=== PATIENT | female | born 1955 | race Caucasian/White ===

== ENCOUNTER 2016-10-08 15:54 | Inpatient (IN) ==
[2016-10-08] MEDS ORDERED: cefTRIAXone 1,000 MG in SODIUM CHLORIDE 0.9% 100 ML IV STA (16:55)
[2016-10-08] MEDS ORDERED: SODIUM CHLORIDE 0.9% 1,000 ML IV STA (16:55)
--- NOTE | 2016-10-08 17:02 | Emergency Department Note ---
Alex Herbert Brooke, am scribing for, and in the presence of, Jg Low MD 17 :00. Maranda Herbert Charles R, MD, personally performed the services described in this documentation, ascribed by Kellie Johnson in my presence, and it is both accurate and complete 702 . Arrival - Arrival Chief Complaint: Non-Specific Stated Complaint: n/v; leg and back pain ED Nursing Triage Note: Pt reports having n/v, leg, and back pain. Went to Dr Baron office for these complaints. Found with abnormal labs. BUN 176, creat 12.2. Pt reports hurting all over but doesnt feel bad.Patient sent to [facility] -- and now transferred her for further evaluation.Pt with pmh of anxiety, htn. K+ 6.0--kayexelate given prior to leaving [facility]. Mode of Arrival: Stretcher Limitations: No Limitations Source: Patient, Family, RN Notes Reviewed Time Seen by Provider: 10/08/16 16:17 - History of Present Illness HPI Narrative: Patient is a 61 year old female who was transferred from [facility] with c/o elevated labs, renal failure, right leg/foot pain and numbness , and "sores" covering body. Patient went to Dr. Baron office, this morning, and was sent to [facility]. Family member says the renal failure and right leg/foot pain and numbness are new. Family member says Patient lifted some "tires," about a month ago, and had some problems with bulging discs. Following the bulging disc, Patient then began to experience the pain and numbness in her right leg. Patient's right knee is also erythematous. Family member says Patient lost her in August and has not been eating or drinking very much. Family member says Patient has had depression, in the past, where she stopped eating and drinking. Family member says Patient has also been getting very little sleep since the loss of her . Family member says [facility] was concerned about a "possible blood infection" and "sepsis." Patient has "sores" that are covering her body. [facility] did an X-ray on Patient's right foot. Patient denies having any chest pain or SOB. Patient has PMHx of HTN and has been falling frequently. Patient is a smoker. Review of System - Review of System 12 point system: reviewed and no additional remarkable complaints except as stated - Review of System Constitutional: Absent: fever Respiratory: Absent: respiratory distress Cardiovascular: Absent: chest pain Musculoskeletal: Present: leg pain (right) Skin: Present: other ("sores" covering body. Right knee erythema.). Absent: rash Neurological: Present: numbness (Right leg) Psychiatric: Present: depression (loss of her ) Hematological/Lymphatic: Present: other (elevated labs) Medical,Surgical,& Family Hx - Medical History Cardio: History of: Hypertension Psychological: History of: Anxiety Disorders - Social History Smoking Status: Former smoker Frequency of Alcohol Use: Occasionally Type of Drug Use: None Exam Vital Signs: Vital Signs Temperature 98.0 F 10/08/16 15:57 Pulse Rate 84 10/08/16 15:57 Respiratory Rate 17 10/08/16 15:57 Blood Pressure 168/63 10/08/16 15:57 O2 Sat by Pulse Oximetry 99 10/08/16 15:57 - General General appearance: alert, in no apparent distress - Head Head exam: Present: atraumatic, normocephalic - Eye Eye exam: Present: PERRL, EOMI, other (sunken orbits) - ENT ENT exam: Present: normal exam - Neck Neck exam: Present: normal inspection - Chest Chest inspection: Present: normal inspection, symmetric chest wall rise - Respiratory Respiratory exam: Present: normal lung sounds bilaterally - Cardiovascular Cardiovascular exam: Present: regular rate, normal rhythm, normal heart sounds - Abdominal Exam Abdominal exam: Present: soft. Absent: distention, tenderness - Extremities Exam Extremities exam: Present: pedal edema (+2 left leg, +1 right leg.) - Back Exam Back exam: Present: normal inspection - Neurological Exam Neurological exam: Present: alert, oriented X3 - Psychiatric Psychiatric exam: Present: normal affect, normal mood - Skin Skin exam: Present: warm, dry, intact, other (Red streak running up right leg. Poor skin turgor. Body covered in sores.) Course - Consultations Consultation #1: Hospitalist will admit patient Time: 17:02 Results - Labs Lab Results: I have reviewed the patients labs Labs: All results reviewed from previous facility Critical Care Time Critical Care Time: Yes Total Critical Care Time: 60 Disposition Clinical Impression: Altered mental status, UTI (urinary tract infection), Skin sore, Acute renal failure, Hyperkalemia, diminished renal excretion, Hypocalcemia, Back pain, Peripheral neuropathic pain Case discussed with: patient, patient's family Disposition: Still a Patient Condition: Guarded Time of Disposition: 17:05
[2016-10-08] MEDS ORDERED: cefTRIAXone 1,000 MG VIAL ONE (17:48)
[2016-10-08 17:55] LABS: Basophils % 0.3 % (0.0-0.8); Eosinophils # 0.1 10*3/uL (0.0-0.87); Eosinophils % 0.6 % (0.00-10.9); Hematocrit 31.5 VOL% (35.7-47.0); Hemoglobin 10.6 GM/DL (12.0-16.0); Immature Granulocytes % 0.4 %; Immature Granulocytes Absolute 0.03 #; Lymphocytes # 0.7 10*3/uL (1.4-4.0); Lymphocytes % 9.3 % (21.3-54.2); Mean Corpuscular HGB Conc 33.7 GM/DL (32-36); Mean Corpuscular Hemoglobin 32 PG (27-34); Mean Corpuscular Volume 96.3 FL (87-102); Mean Platelet Volume 10.8 FL (9.6-12.0); Monocytes # 0.7 10*3/uL (0.11-0.8); Monocytes % 8.8 % (1.7-12.7); Neutrophils # 6.3 10*3/uL (1.4-7.4); Neutrophils % 80.6 % (38.7-73.9); Platelet Count 311 10*3/uL (130-400); Red Blood Count 3.27 10*6/uL (3.8-5.5); Red Cell Distribution Width 13.3 % (9.3-17.3); White Blood Count 7.8 10*3/uL (4.5-13.71)
[2016-10-08] MEDS ORDERED: GLUCAGON 1 MG VIAL IM PRN (18:20)
[2016-10-08] MEDS ORDERED: DEXTROSE 50% 25 GM/50 ML VIAL IV PRN (18:20)
[2016-10-08] MEDS ORDERED: ONDANSETRON 4 MG/2 ML VIAL IV PRN (18:20)
[2016-10-08 18:46] LABS: Alanine Aminotransferase 25 U/L (13-56); Albumin 2.8 G/DL (3.4-5.0); Alkaline Phosphatase 109 U/L (45-117); Aspartate Amino Transferase 33 U/L (0-37); Blood Urea Nitrogen 160 MG/DL (7-18); CKMB % 1.1 %; Calcium 6.8 MG/DL (8.5-10.1); Glucose 101 MG/DL (74-106); Magnesium 2.7 MG/DL (1.8-2.4); Osmolality,Calculated 316.5 MOS/KG (273-304); Sodium 132 MMOL/L (136-145); Total Protein 6.7 G/DL (6.4-8.3); Troponin I Only < 0.015 NG/ML (0.00-0.045)
--- NOTE | 2016-10-08 19:06 | Hospitalist History & Physical ---
<Sruthi Hoover - Last Filed: 10/08/16 19:03> Assessment and Plan - Time spent with patient Time spent with patient: Less than 30 minutes (due to assessment, plan and documentation.) (1) Acute renal failure Status: Acute Assessment and plan: IVF's at 125 cc/hr nephrology consult renal u/s in am Current Visit: Yes (2) Back pain Status: Acute Current Visit: Yes (3) Hyperkalemia, diminished renal excretion Status: Acute Assessment and plan: kayexalate 1 dose. Current Visit: Yes History of Present Illness Chief complaint: dehydration, not eating History of present illness: Ms. Lanier is a 61 year old female who presented to the ED today with her family. Family states that she has not been eating well for months since the of her . She does appear somewhat depressed. She denies any past medical history of DM or HTN, or kidney disease. However, labs show an elevated creatinine of 12.2. She does admit to taking NSAID's almost on a daily basis for years. She states that she was scared she would OD on other medications. She has history of back problems as well. She is also complaining of right foot pain. It does appear slightly swollen. She has had xrays done at [facility] that showed a possible chronic fracture. We will admit Ms. Lanier to our service and hydrate with IVF's at 125 cc/hr, obtain a nephrology consultation and renal ultrasound. She also has PRN medications in for pain. Further plan and addendum to follow by Dr. Diego Tang. Home Medications Medication Instructions Recorded Confirmed Type Lisinopril/Hctz 20-12.5 [Prinzide 1 tablet PO DAILY 10/08/16 10/08/16 History 20-12.5] [place]-3 Fatty Acids [Fish Oil] 1,000 mg PO BID 10/08/16 10/08/16 History Omeprazole [Prilosec] 20 mg PO DAILY 10/08/16 10/08/16 History Sertraline [Zoloft] 100 mg PO DAILY 10/08/16 10/08/16 History Medical,Surgical,& Family Hx - Medical History Cardio: History of: Hypertension Psychological: History of: Anxiety Disorders - Social History Smoking Status: Former smoker Frequency of Alcohol Use: Occasionally Type of Drug Use: None Marital Status: Lives With:: Alone Functional capacity: uses cane/walker - Constitutional Constitutional: Absent: chills, fatigue, fever(s) - EENT Eyes: Absent: blurry vision, diplopia Ears: Absent: decreased hearing, tinnitus Nose, mouth and throat: Absent: dysphagia, headache(s) - Cardiovascular Cardiovascular: Absent: chest pain at rest, dyspnea on exertion, palpitations - Respiratory Respiratory: Absent: cough, dyspnea, hemoptysis - Gastrointestinal Gastrointestinal: Absent: abdominal pain, melena, nausea, vomiting - Genitourinary Genitourinary: Absent: difficulty urinating, dysuria, hematuria - Musculoskeletal Musculoskeletal: Absent: arthralgias, back pain - Neurological Neurological: Absent: confusion, dizziness - Psychiatric Psychiatric: Present: depression. Absent: anxiety, confusion - Endocrine Endocrine: Absent: cold intolerance, heat intolerance - Hematologic/Lymphatic Hematologic/Lymphatic: Absent: easy bleeding, easy bruising Exam - Constitutional General appearance: normal weight, no acute distress - Head Head exam: Present: normal inspection, normocephalic - Eye Eye exam: Present: EOMI. Absent: scleral icterus Pupils: Present: MAY, normal accommodation - ENT ENT exam: Present: normal exam, normal oropharynx - Neck Neck exam: Present: normal inspection. Absent: lymphadenopathy - Respiratory Respiratory exam: Present: clear to auscultation bilaterally. Absent: accessory muscle use - Cardiovascular Cardiovascular exam: Present: regular rate and rhythm. Absent: carotid bruit - GI/Abdominal GI/Abdominal exam: Present: normal bowel sounds, soft. Absent: tenderness - Extremities Exam Extremities exam: Present: normal inspection, edema, other (right lower foot is swollen. ) - Back Exam Back exam: Present: normal inspection. Absent: muscle spasm - Neurological Exam Neurological exam: Present: alert, oriented X3 - Psychiatric Psychiatric exam: Present: normal affect, depressed - Skin Skin exam: Present: normal color, warm, dry, intact Results - Labs CBC & BMP: 10/08/16 17:41 10/08/16 17:41 Lab Results: I have reviewed the past 24 hour labs <Diego Tang Jr. - Last Filed: 10/08/16 20:41> Assessment and Plan (1) ETOH abuse Status: Acute Current Visit: Yes (2) Acute renal failure Status: Acute Current Visit: Yes (3) Hyperkalemia, diminished renal excretion Status: Acute Assessment and plan: Hyperkalemia more likely due to patient's acute renal failure. Patient has a history of chronic NSAID use. Moreover there is a history of patient with substance abuse. Current Visit: Yes (4) Skin sore Status: Acute Current Visit: Yes (5) UTI (urinary tract infection) Status: Acute Current Visit: Yes History of Present Illness History of present illness: Ms. Lanier is a 61 year old female Exam - Constitutional Vitals: Period Temp Pulse Resp BP Sys/Painting Pulse Ox Last 24 Hr 85-103 18-19 153-167/62-63 94-99 Results - Labs CBC & BMP: 10/08/16 17:41 10/08/16 17:41
[2016-10-08] MEDS ORDERED: SODIUM POLYSTYRENE SULFATE 15 GM/60 ML BOTTLE PO STA (19:09)
[2016-10-08] MEDS ORDERED: LORazepam 2 MG/1 ML VIAL IV PRN (19:18)
[2016-10-08] MEDS ORDERED: SODIUM POLYSTYRENE SULFATE 15 GM/60 ML BOTTLE ONE (19:33)
[2016-10-08 19:55] LABS: Free T4 (Free Thyroxine) 0.41 NG/DL (0.76-1.46); Thyroid Stimulating Hormone 0.716 uIU/ml (0.358-3.74); Uric Acid 17.1 MG/DL (2.6-6.0)
[2016-10-08 19:57] LABS: Folate 10.7 NG/ML (5.4-24.0)
[2016-10-08 20:14] LABS: Barbiturates Screen,Urine Negative (Negative); Benzodiazepines Screen,Urine Negative (Negative); Cannabinoid Screen,Urine Negative (Negative); Opiate Screen,Urine Positive (Negative); Phencyclidine Screen,Urine Negative (Negative)
--- NOTE | 2016-10-08 20:20 | Ultrasound Report ---
US venous doppler LE BI Indication: Lower extremity edema. Comparison: None. Technique: Grayscale, spectral, and color Doppler interrogation of the bilateral lower extremity veins was performed. Augmentation and compression was performed. Findings: Grayscale, color Doppler, and pulsed Doppler evaluation of the veins of the bilateral lower extremity demonstrate no evidence of deep venous thrombosis. IMPRESSION: No evidence of deep venous thrombosis in the bilateral lower extremity. PROCEDURE INTERPRETED AT [facility] DEPARTMENT OF RADIOLOGY Final Report Signed by: Dr Diego Arguello
--- NOTE | 2016-10-08 20:22 | Ultrasound Report ---
US renal Bilateral Indication: Acute renal failure Comparison: None Technique: Multiple longitudinal and transverse sonographic images of the kidneys were obtained with transabdominal probe. Findings: Right kidney measures 10.4 cm. Left kidney measures 8.6 cm. No evidence of hydronephrosis. Study is somewhat limited secondary to patient body habitus. IMPRESSION: No evidence of hydronephrosis. PROCEDURE INTERPRETED AT [facility] DEPARTMENT OF RADIOLOGY Final Report Signed by: Dr Diego Arguello
[2016-10-08] MEDS: LORazepam 1 MG TABLET PO SCH (21:34)
[2016-10-08] MEDS: OMEGA 3 ACID ETHYL ESTERS 1 GM CAPSULE PO SCH (21:34)
[2016-10-08] MEDS: SODIUM CHLORIDE 0.9% 1,000 ML IV SCH (21:58)
[2016-10-08] MEDS: ZALEPLON 5 MG CAPSULE PO PRN (22:03)
[2016-10-09] MEDS: SODIUM CHLORIDE 0.9% 1,000 ML IV SCH ×3 (05:46→19:55)
[2016-10-09 06:36] LABS: Basophils % 0.5 % (0.0-0.8); Eosinophils # 0.3 10*3/uL (0.0-0.87); Hematocrit 29.2 VOL% (35.7-47.0); Hemoglobin 9.5 GM/DL (12.0-16.0); Immature Granulocytes % 0.3 %; Immature Granulocytes Absolute 0.02 #; Lymphocytes # 1.4 10*3/uL (1.4-4.0); Lymphocytes % 24.6 % (21.3-54.2); Mean Corpuscular HGB Conc 32.5 GM/DL (32-36); Mean Corpuscular Hemoglobin 31 PG (27-34); Mean Corpuscular Volume 96.4 FL (87-102); Mean Platelet Volume 10.9 FL (9.6-12.0); Monocytes # 1.2 10*3/uL (0.11-0.8); Monocytes % 20.6 % (1.7-12.7); Neutrophils # 2.8 10*3/uL (1.4-7.4); Platelet Count 300 10*3/uL (130-400); Red Blood Count 3.03 10*6/uL (3.8-5.5); Red Cell Distribution Width 13.6 % (9.3-17.3); White Blood Count 5.8 10*3/uL (4.5-13.71)
[2016-10-09 07:10] LABS: Hypochromasia 1+; Lymphocytes 28 % (20-55); Microcytosis 1+; Platelet Estimate Adequate; Segmented Neutrophils 64 % (50-85); Total Cells Counted 100
[2016-10-09 07:17] LABS: Albumin 2.3 G/DL (3.4-5.0); Bilirubin,Total 2.3 MG/DL (0.2-1.0); Calcium 6.2 MG/DL (8.5-10.1); Osmolality,Calculated 323.7 MOS/KG (273-304); Potassium 4.4 MMOL/L (3.5-5.1); Total Protein 5.3 G/DL (6.4-8.3)
[2016-10-09] MEDS ORDERED: LISINOPRIL/HCTZ 20-12.5 MG TABLET PO SCH (09:00)
[2016-10-09] MEDS ORDERED: OMEPRAZOLE 20 MG CAPSULE PO SCH (09:00)
[2016-10-09] MEDS: THIAMINE 200 MG/2 ML VIAL IV SCH (09:11)
[2016-10-09] MEDS: LORazepam 1 MG TABLET PO SCH ×2 (09:12→21:58)
[2016-10-09] MEDS: SERTRALINE 100 MG TABLET PO SCH (09:12)
[2016-10-09] MEDS: OMEGA 3 ACID ETHYL ESTERS 1 GM CAPSULE PO SCH ×2 (09:12→21:58)
[2016-10-09] MEDS: PANTOPRAZOLE 40 MG TABLET PO SCH (09:12)
--- NOTE | 2016-10-09 12:51 | Hospitalist Progress Note ---
<Sruthi Hoover - Last Filed: 10/09/16 12:48> Assessment and Plan (1) Acute renal failure Status: Acute Assessment and plan: IVF's at 125 cc/hr nephrology consult renal no hydro Current Visit: Yes (2) Back pain Status: Acute Current Visit: Yes (3) Hyperkalemia, diminished renal excretion Status: Acute Assessment and plan: resolved Current Visit: Yes Hospitalist: Subjective Interval history: Ms. Lanier is sleeping well at this time. Her daughter states that she has slept well, and that she does appear to be comfortable. She has worked with physical therapy this morning. Her daughter had some questions regarding social service issues, and I told her that we have consulted case mgmt/social sciences chair and that they would be able to better answer those questions. Her renal function is improving, and her renal u/s showed no hydro. Labs in AM and continue to follow along with consultants. Exam - Constitutional Vitals: Period Temp Pulse Resp BP Sys/Painting Pulse Ox Last 24 Hr 96.9 F-97.8 F 79-103 16-188 126-167/50-86 92-99 General appearance: normal weight, no acute distress - Head Head exam: Present: normal inspection, normocephalic - Eye Eye exam: Present: EOMI. Absent: scleral icterus Pupils: Present: MAY, normal accommodation - ENT ENT exam: Present: normal exam, normal oropharynx - Neck Neck exam: Present: normal inspection. Absent: lymphadenopathy - Respiratory Respiratory exam: Present: clear to auscultation bilaterally. Absent: accessory muscle use - Cardiovascular Cardiovascular exam: Present: regular rate and rhythm - GI/Abdominal GI/Abdominal exam: Present: normal bowel sounds, soft. Absent: tenderness - Extremities Exam Extremities exam: Present: normal inspection. Absent: edema - Back Exam Back exam: Present: normal inspection. Absent: muscle spasm - Neurological Exam Neurological exam: Present: other (asleep) - Skin Skin exam: Present: normal color, warm, dry, intact Results - Labs CBC & BMP: 10/09/16 05:25 10/09/16 05:25 Lab Results: I have reviewed the past 24 hour labs <Dick Olsen - Last Filed: 10/09/16 15:26> Hospitalist: Subjective Interval history: Patient seen and examined case discussed with daughter. She is worse in be quite somnolent. I think she does not report quire as much benzodiazepine as have been ordered overnight. I would decrease these. She would also need some bicarbonate in her infusion. More than likely this should turn around in the renal function should improve. We will also switch her to Teflaro for cellulitis. Exam - Constitutional Vitals: Period Temp Pulse Resp BP Sys/Painting Pulse Ox Last 24 Hr 96.9 F-97.8 F 79-103 16-188 126-167/50-86 92-99 Results - Labs CBC & BMP: 10/09/16 05:25 10/09/16 05:25
--- NOTE | 2016-10-09 14:06 | Nephrology Consult Note ---
History of Present Illness Chief complaint: renal failure History of present illness: Ms. Lanier is a 61 year old female with acute renal failure who presented to [place] after her daughter came in from [place] and found her not doing well. She involved been vomiting and been eating very poorly. The house was unkempt and there was suspicion that she had been taking some morphine that was in the house from her late 's prescription. Is also a history of alcohol use though that history is obtained from the daughter. At present the patient is unable to confirm. Her creatinine was 11.2 on admission here but today is 9.0 after rehydration. Past history is limited and is obtained from the daughter she says that her mother had anxiety depression symptoms the whole time that the daughter was growing up and that at one point she had electroconvulsive therapy. She does take at least 6 ibuprofen daily for back pain. She had been complaining of back pain of late. A renal ultrasound has been done the demonstrates no evidence of obstruction and the kidneys are normal size. Her graft the patient is quite sedated and is currently receiving Ativan prophylactically. Chest x-ray demonstrates no evidence of volume overload. Impression acute renal failure likely secondary to volume depletion and the effects of lisinopril and ibuprofen on renal compensation for her volume depletion. 2 history of probable inappropriate opioid use #3 history of alcohol ingestion though quantity and recency not determined. Plan: continue with hydration and we will stop lisinopril. Home Medications Medication Instructions Recorded Confirmed Type Lisinopril/Hctz 20-12.5 [Prinzide 1 tablet PO DAILY 10/08/16 10/08/16 History 20-12.5] [place]-3 Fatty Acids [Fish Oil] 1,000 mg PO BID 10/08/16 10/08/16 History Omeprazole [Prilosec] 20 mg PO DAILY 10/08/16 10/08/16 History Sertraline [Zoloft] 100 mg PO DAILY 10/08/16 10/08/16 History Allergies Allergy/AdvReac Type Severity Reaction Status Date / Time No Known Allergies Allergy Unverified 10/08/16 19:26 Medical,Surgical,& Family Hx - Medical History Cardio: History of: Hypertension Psychological: History of: Anxiety Disorders Musculoskeletal: History of: Back/Neck Problems - Surgical History Reproductive Surgeries: Surgical HX of;: Tubal Ligation Orthopedic Surgeries: Surgical HX of;: Orthopedic Surgery (Broken left leg repair) - Family History Family History: Denies;: Family Anesthesia Reaction, Family Cancer, Family Diabetes, Family Heart Disease, Family Hematology, Family Hypertension, Family Psychiatric Problems, Family Stroke, Additional Family History - Social History Smoking Status: Former smoker Frequency of Alcohol Use: Occasionally Type of Drug Use: None Review of Systems 12 point system: reviewed and no additional remarkable complaints except as stated Exam - Vital Signs Vital signs: Period Temp Pulse Resp BP Sys/Painting Pulse Ox Last 24 Hr 96.9 F-97.8 F 79-103 16-188 126-167/50-86 92-99 - General Appearance General appearance: well-developed, well-nourished, appears started age EENT: ATNC Neck: no JVD, no thyromegaly, no carotid bruit, supple Respiratory: no kyphosis, no scoliosis Cardiology: no murmurs, no rub, no gallops, no edema, regular rate, regular rhythm, normal S1, normal S2 Gastrointestinal: normoactive bowel sounds, no tenderness Integumentary: no rash, warm and dry Neurologic: obtunded Musculoskeletal: no deformities (Arousable but not conversant), no erythema, no cyanosis, no clubbing Results - Labs CBC & BMP: 10/09/16 05:25 10/09/16 05:25 Assessment and Plan (1) Acute renal failure Status: Acute Current Visit: Yes (2) Back pain Status: Acute Current Visit: Yes (3) Altered mental status Status: Acute Current Visit: Yes Specialty Discharge - Follow Up or Referrals - Speciality Discharge Instructions Nephrology Instructions: Decrease sedation. Supplement bicarb. Continue fluid
[2016-10-09] MEDS ORDERED: LORazepam 1 MG TABLET PO SCH (14:09)
--- NOTE | 2016-10-09 14:19 | Event Note ---
Ms. Yo his uric acid is noted to be 17 on admission. We will alkalinize her urine and continue with the IV fluids. This should fall with diuresis and the resolution of her renal failure.
[2016-10-09] MEDS: cefTRIAXone 1,000 MG in SODIUM CHLORIDE 0.9% 100 ML IV SCH (19:56)
[2016-10-09] MEDS: SODIUM BICARB INJ 50 MEQ in DEXTROSE 5% NACL 0.45% 1,000 ML IV SCH (19:56)
[2016-10-10] MEDS: SODIUM BICARB INJ 50 MEQ in DEXTROSE 5% NACL 0.45% 1,000 ML IV SCH ×3 (04:53→22:45)
[2016-10-10 04:59] LABS: Basophils % 0.6 % (0.0-0.8); Eosinophils # 0.4 10*3/uL (0.0-0.87); Eosinophils % 6.1 % (0.00-10.9); Hematocrit 30.1 VOL% (35.7-47.0); Hemoglobin 10.1 GM/DL (12.0-16.0); Immature Granulocytes % 0.3 %; Immature Granulocytes Absolute 0.02 #; Lymphocytes # 0.9 10*3/uL (1.4-4.0); Mean Corpuscular HGB Conc 33.6 GM/DL (32-36); Mean Corpuscular Hemoglobin 32 PG (27-34); Mean Corpuscular Volume 96.2 FL (87-102); Mean Platelet Volume 11.1 FL (9.6-12.0); Monocytes # 1.3 10*3/uL (0.11-0.8); Monocytes % 19.5 % (1.7-12.7); Neutrophils # 4.2 10*3/uL (1.4-7.4); Neutrophils % 60.5 % (38.7-73.9); Platelet Count 291 10*3/uL (130-400); Red Blood Count 3.13 10*6/uL (3.8-5.5); Red Cell Distribution Width 13.3 % (9.3-17.3); White Blood Count 6.9 10*3/uL (4.5-13.71)
[2016-10-10 05:29] LABS: Albumin 2.4 G/DL (3.4-5.0); Bilirubin,Total 0.7 MG/DL (0.2-1.0); Calcium 7.3 MG/DL (8.5-10.1); Osmolality,Calculated 323.3 MOS/KG (273-304); Potassium 3.3 MMOL/L (3.5-5.1); Total Protein 5.2 G/DL (6.4-8.3)
[2016-10-10 06:16] LABS: Anisocytosis Slight; Eosinophils 3 % (0-10); Lymphocytes 12 % (20-55); Macrocytosis Slight; Platelet Estimate Normal; Segmented Neutrophils 69 % (50-85); Total Cells Counted 100
--- NOTE | 2016-10-10 09:22 | XRay Report ---
History is acute renal failure Comparison 05/11/2013 Heart and vessels are mildly enlarged No overt pulmonary edema or consolidative infiltrate is seen Impression: Mild cardiomegaly and vascular congestion PROCEDURE INTERPRETED AT [facility] DEPARTMENT OF RADIOLOGY Final Report Signed by: Dr. Doris Jeffries
[2016-10-10] MEDS: LORazepam 1 MG TABLET PO SCH ×2 (10:42→21:47)
[2016-10-10] MEDS: THIAMINE 200 MG/2 ML VIAL IV SCH (10:43)
[2016-10-10] MEDS: OMEGA 3 ACID ETHYL ESTERS 1 GM CAPSULE PO SCH ×2 (10:43→21:48)
[2016-10-10] MEDS: SERTRALINE 100 MG TABLET PO SCH (10:43)
[2016-10-10] MEDS: PANTOPRAZOLE 40 MG TABLET PO SCH (10:43)
[2016-10-10] MEDS: DESITIN 4OZ/NYSTATIN 15 GRAM MIXTURE PASTE TOP SCH ×2 (13:19→21:54)
--- NOTE | 2016-10-10 14:27 | Hospitalist Progress Note ---
Assessment and Plan (1) Cellulitis Status: Acute Current Visit: Yes (2) Altered mental status Status: Acute Current Visit: Yes (3) Acute renal failure Status: Acute Current Visit: Yes Hospitalist: Subjective Interval history: More awake and alert. She states she had been drinking a little bit here and there but did not drink much in the last few weeks. She has been more depressed since her . She just did not eat much but she denies taking his pain medications. She has pain in the right foot. She had fallen few Times. Assessment and plan 10/10/2016: Acute renal failure Possible Sanders of alcohol use Depression Clinically she is improving. This does not appear to be gout. I will give her 1 dose of 40 mg Solu-Medrol to see if that helps in the foot. We will also get an x-ray of the foot since she has fallen 3 times. Continue with current management with IV fluids and bicarbonate to alkalinize. Her uric acid is down to 15. I will also consult social group worker for possible swing bed placement and for PT evaluation. Exam - Constitutional Vitals: Period Temp Pulse Resp BP Sys/Painting Pulse Ox Last 24 Hr 97.6 F-98.2 F 79-92 18-18 148-168/69-80 97-98 Exam: Gen.: In no acute distress Head and neck: Pupils are reactive neck is supple Cardiovascular: S1-S2 with regular rate and rhythm Respiratory: Lungs are clear to auscultation and percussion Abdomen: Soft, bowel sounds are positive Extremities: No edema, right foot is mildly tender but no obvious erythema is noted. Left thigh cellulitis is better Neuro: Grossly intact Results - Labs CBC & BMP: 10/10/16 03:37 10/10/16 03:37 Lab Results: I have reviewed the past 24 hour labs
[2016-10-10] MEDS ORDERED: methylPREDNISolone SOD SUC 40 MG/1 ML VIAL IV ONE (14:30)
--- NOTE | 2016-10-10 15:34 | XRay Report ---
Right foot, 2 views History is recent fall with right foot injury and pain No acute osseous, articular, or soft tissue abnormality seen. Impression: No acute pathology seen. PROCEDURE INTERPRETED AT [facility] DEPARTMENT OF RADIOLOGY Final Report Signed by: Dr. Doris Jeffries
--- NOTE | 2016-10-10 16:04 | Nephrology Progress Note ---
Nephrology - PN: Subj Interval history: Ms. Lanier is seen in follow-up of her acute renal failure. She is much improved. She is on much less sedation today and is awake she is somewhat anxious. She's bothered by her Lamas catheter and is alert enough to get to the bedside commode with assistance. Her daughter is here can help her when necessary. We will remove her Lamas catheter. Her uric acid remains significantly elevated at 15. Because of that without a begin allopurinol and a standard dose rather than a small dose. She tells me she has never had gout. Her chest is clear she has no peripheral edema urine output is brisk. Acidosis is improved. I expect her creatinine to continue to follow. Exam (PN)-Nephrology - Vital Signs Vital signs: Period Temp Pulse Resp BP Sys/Painting Pulse Ox Last 24 Hr 98 F-98.2 F 79-92 18-18 148-168/69-80 97-98 - Lab 10/10/16 03:37 10/10/16 03:37 Most recent lab results Calcium 7.3 MG/DL (8.5-10.1) L 10/10/16 03:37 Magnesium 2.7 MG/DL (1.8-2.4) H 10/08/16 17:41 Assessment and Plan (1) Acute renal failure Status: Acute Current Visit: Yes (2) Back pain Status: Acute Current Visit: Yes (3) Altered mental status Status: Acute Current Visit: Yes
[2016-10-10] MEDS: cefTRIAXone 1,000 MG in SODIUM CHLORIDE 0.9% 100 ML IV SCH (18:50)
[2016-10-10] MEDS: ALLOPURINOL 300 MG TABLET PO SCH (21:49)
[2016-10-11] MEDS: ZALEPLON 5 MG CAPSULE PO PRN ×2 (01:24→20:57)
[2016-10-11 05:14] LABS: Basophils % 0.2 % (0.0-0.8); Hematocrit 26.3 VOL% (35.7-47.0); Hemoglobin 9.1 GM/DL (12.0-16.0); Immature Granulocytes % 0.7 %; Immature Granulocytes Absolute 0.03 #; Lymphocytes # 0.8 10*3/uL (1.4-4.0); Lymphocytes % 18.5 % (21.3-54.2); Mean Corpuscular HGB Conc 34.6 GM/DL (32-36); Mean Corpuscular Hemoglobin 32 PG (27-34); Mean Corpuscular Volume 92.3 FL (87-102); Mean Platelet Volume 11.1 FL (9.6-12.0); Monocytes # 0.8 10*3/uL (0.11-0.8); Monocytes % 17.2 % (1.7-12.7); Neutrophils # 2.9 10*3/uL (1.4-7.4); Neutrophils % 63.4 % (38.7-73.9); Platelet Count 270 10*3/uL (130-400); Red Blood Count 2.85 10*6/uL (3.8-5.5); Red Cell Distribution Width 12.8 % (9.3-17.3); White Blood Count 4.5 10*3/uL (4.5-13.71)
[2016-10-11 05:44] LABS: Albumin 2.4 G/DL (3.4-5.0); Bilirubin,Total 0.6 MG/DL (0.2-1.0); Calcium 7.7 MG/DL (8.5-10.1); Osmolality,Calculated 309.4 MOS/KG (273-304); Potassium 2.8 MMOL/L (3.5-5.1); Total Protein 5.4 G/DL (6.4-8.3)
[2016-10-11 05:52] LABS: Hypochromasia 1+; Lymphocytes 22 % (20-55); Segmented Neutrophils 66 % (50-85); Total Cells Counted 100
[2016-10-11 05:53] LABS: Macrocytosis Slight; Platelet Estimate Adequate
[2016-10-11] MEDS: SODIUM BICARB INJ 50 MEQ in DEXTROSE 5% NACL 0.45% 1,000 ML IV SCH (06:49)
[2016-10-11] MEDS ORDERED: POTASSIUM CHLORIDE RIDER 10 MEQ in PREMIX 1 EACH IV PRN (07:41)
[2016-10-11] MEDS: LORazepam 1 MG TABLET PO SCH ×2 (09:51→20:57)
[2016-10-11] MEDS: OMEGA 3 ACID ETHYL ESTERS 1 GM CAPSULE PO SCH ×2 (09:52→20:58)
[2016-10-11] MEDS: PANTOPRAZOLE 40 MG TABLET PO SCH (09:52)
[2016-10-11] MEDS: SERTRALINE 100 MG TABLET PO SCH (09:52)
[2016-10-11] MEDS: DESITIN 4OZ/NYSTATIN 15 GRAM MIXTURE PASTE TOP SCH ×2 (09:53→20:58)
[2016-10-11] MEDS: SODIUM BICARB IV SCH ×2 (10:22→18:31)
[2016-10-11] MEDS: [UNRECOGNIZED DRUG - OTHER] IV SCH ×2 (10:22→18:31)
[2016-10-11] MEDS: POTASSIUM CHLORIDE IV SCH ×2 (10:22→18:31)
--- NOTE | 2016-10-11 10:28 | Nephrology Progress Note ---
Nephrology - PN: Subj Interval history: Ms. Lanier is seen in follow-up of her acute renal failure which is improving. Hyperuricemia was profound and is improving as well with hydration and also with allopurinol. She has developed what is probably acute gout in the right foot involving the right great toe and forefoot. Did receive a single dose of steroids earlier and we're going to begin low-dose colchicine 0.6 mg daily for a short period of time. I think we need to continue the allopurinol in order to get the uric acid below the level that will be damaging to the kidneys and we will continue with the bicarbonate in her IV fluids now to alkalinize her urine. She is alert and oriented. Overall she is much improved Exam (PN)-Nephrology - Vital Signs Vital signs: Period Temp Pulse Resp BP Sys/Painting Pulse Ox Last 24 Hr 97.9 F-99.0 F 75-86 18-20 146-162/63-84 96-98 - Lab 10/11/16 04:13 10/11/16 04:13 Most recent lab results Calcium 7.7 MG/DL (8.5-10.1) L 10/11/16 04:13 Magnesium 2.7 MG/DL (1.8-2.4) H 10/08/16 17:41 Assessment and Plan (1) Acute renal failure Status: Acute Current Visit: Yes (2) Back pain Status: Acute Current Visit: Yes (3) Altered mental status Status: Acute Current Visit: Yes
[2016-10-11] MEDS: COLCHICINE 0.6 MG TABLET PO SCH (10:33)
--- NOTE | 2016-10-11 12:45 | Hospitalist Progress Note ---
Assessment and Plan (1) Cellulitis Status: Acute Current Visit: Yes (2) Altered mental status Status: Acute Current Visit: Yes (3) Acute renal failure Status: Acute Current Visit: Yes Hospitalist: Subjective Interval history: Occasionally gets confused but appears to be [place] related but she also has quite a bit of pain. X-ray of the foot did not show any acute changes. Clinically this does not appear to be gout as usually eats much more tender than she is but certainly with elevated uric acid this this is a possibility. I did give her some Decadron yesterday and that did not seem to have helped. Assessment and plan 10/11/2016: Acute kidney failure Hyperuricemia Hypokalemia Potassium initially was 6 now it's low at 2.8. Renal function is continues to improve. Nephrology is trying uricase it and low-dose colchicine. Potassium is being supplemented. Discussed with the daughter that she may need some help at least in the first few weeks to see if she does not get in the situation again. Will consider low-dose antidepressant at the time of discharge. Exam - Constitutional Vitals: Period Temp Pulse Resp BP Sys/Painting Pulse Ox Last 24 Hr 97.9 F-99.0 F 75-86 18-20 146-162/63-87 95-98 Exam: Gen.: In no acute distress Head and neck: Pupils are reactive neck is supple Cardiovascular: S1-S2 with regular rate and rhythm Respiratory: Lungs are clear to auscultation and percussion Abdomen: Soft, bowel sounds are positive Extremities: No edema, right foot is mildly tender but no obvious erythema is noted. Left thigh cellulitis is better Neuro: Grossly intact Results - Labs CBC & BMP: 10/11/16 04:13 10/11/16 04:13
[2016-10-11] MEDS: cefTRIAXone 1,000 MG in SODIUM CHLORIDE 0.9% 100 ML IV SCH (18:30)
[2016-10-11] MEDS: ALLOPURINOL 300 MG TABLET PO SCH (20:57)
[2016-10-12] MEDS: SODIUM BICARB IV SCH (03:30)
[2016-10-12] MEDS: POTASSIUM CHLORIDE IV SCH (03:30)
[2016-10-12] MEDS: [UNRECOGNIZED DRUG - OTHER] IV SCH (03:30)
[2016-10-12 06:24] LABS: Basophils % 0.1 % (0.0-0.8); Eosinophils # 0.1 10*3/uL (0.0-0.87); Hematocrit 28.4 VOL% (35.7-47.0); Hemoglobin 9.4 GM/DL (12.0-16.0); Immature Granulocytes % 0.5 %; Immature Granulocytes Absolute 0.05 #; Lymphocytes # 0.7 10*3/uL (1.4-4.0); Lymphocytes % 7.5 % (21.3-54.2); Mean Corpuscular HGB Conc 33.1 GM/DL (32-36); Mean Corpuscular Hemoglobin 31 PG (27-34); Mean Platelet Volume 11.1 FL (9.6-12.0); Monocytes # 1.4 10*3/uL (0.11-0.8); Monocytes % 14.4 % (1.7-12.7); Neutrophils # 7.2 10*3/uL (1.4-7.4); Neutrophils % 76.5 % (38.7-73.9); Platelet Count 268 10*3/uL (130-400); Red Blood Count 2.99 10*6/uL (3.8-5.5); White Blood Count 9.4 10*3/uL (4.5-13.71)
[2016-10-12] MEDS: ALBUTEROL/IPRATROPIUM 3 ML NEB RESP TX PRN (06:33)
--- NOTE | 2016-10-12 08:46 | Nephrology Progress Note ---
Nephrology - PN: Subj Interval history: Ms. Yo is seen in follow-up renal impairment hyperuricemia. She is improved but complaining of a right foot which is probably an acute gouty attack. Uric acid is down to 12.2 creatinine is not reported this morning but should be available soon. With her uric acid now down to this level I think we can omit this sodium bicarbonate from her IV fluid. We do need to continue the allopurinol. This is to protect her kidneys from this degree of hyperuricemia. Certainly it is not helping her acute gout but we will continue it and continue with the low-dose colchicine and she is already taking. Her chest is clear and as no edema. Exam (PN)-Nephrology - Vital Signs Vital signs: Period Temp Pulse Resp BP Sys/Painting Pulse Ox Last 24 Hr 97.8 F-98.9 F 75-84 16-80 156-197/69-87 87-100 - Lab 10/12/16 05:22 10/11/16 04:13 Most recent lab results Calcium 7.7 MG/DL (8.5-10.1) L 10/11/16 04:13 Magnesium 2.7 MG/DL (1.8-2.4) H 10/08/16 17:41 Assessment and Plan (1) Acute renal failure Status: Acute Current Visit: Yes (2) Back pain Status: Acute Current Visit: Yes (3) Altered mental status Status: Acute Current Visit: Yes
[2016-10-12] MEDS: PANTOPRAZOLE 40 MG TABLET PO SCH (08:51)
[2016-10-12] MEDS: COLCHICINE 0.6 MG TABLET PO SCH (08:51)
[2016-10-12] MEDS: OMEGA 3 ACID ETHYL ESTERS 1 GM CAPSULE PO SCH ×2 (08:51→21:13)
[2016-10-12] MEDS: LORazepam 1 MG TABLET PO SCH ×2 (08:52→21:12)
[2016-10-12] MEDS: DESITIN 4OZ/NYSTATIN 15 GRAM MIXTURE PASTE TOP SCH (08:52)
[2016-10-12] MEDS: SERTRALINE 100 MG TABLET PO SCH (08:52)
[2016-10-12 11:53] LABS: Calcium 7.6 MG/DL (8.5-10.1); Magnesium 1.4 MG/DL (1.8-2.4); Osmolality,Calculated 303.1 MOS/KG (273-304); Potassium 2.6 MMOL/L (3.5-5.1)
[2016-10-12] MEDS: POTASSIUM CHLORIDE INJ 30 MEQ in DEXTROSE 5% NACL 0.45% 1,000 ML IV SCH ×2 (12:01→23:00)
[2016-10-12] MEDS: MAGNESIUM OXIDE 400 MG TABLET PO SCH ×2 (12:24→21:12)
--- NOTE | 2016-10-12 14:41 | Hospitalist Progress Note ---
Assessment and Plan (1) Acute renal failure Status: Acute Assessment and plan: - Continue IV fluid hydration and encourage oral intake improved acute renal failure. - Continue both allopurinol as well as colchicine to decrease the patient's uric acid level - Nephrology is following, we'll continue to follow the recommendations - Replace potassium orally, also start oral magnesium due to decrease magnesium level which is likely providing the patient from replacing her potassium effectively - Continue to monitor blood counts and electrolytes closely - Continue current pain control regimen Current Visit: Yes (2) Hypokalemia Status: Acute Current Visit: Yes (3) Anemia Status: Acute Current Visit: Yes (4) ETOH abuse Status: Acute Current Visit: Yes Hospitalist: Subjective Interval history: The patient is a 61-year-old female admitted to the hospital with acute renal failure, hyperuricemia with gouty arthritis, and anemia. The patient's kidney function tests continue to improve she continues to have worsening of her potassium level which continued to decrease today. Her uric acid level has improved with allopurinol and colchicine treatment. The patient continues to complain of right foot pain and swelling, as well as decreased appetite. She denies any chest pain or shortness of breath. Exam - Constitutional Vitals: Period Temp Pulse Resp BP Sys/Painting Pulse Ox Last 24 Hr 97.8 F-98.5 F 75-84 16-80 158-197/69-82 87-100 Exam: General appearance: chronically ill appearing female, awake and responsive but lethargic - Head Head exam: Present: normal inspection - Eye Eye exam: Present: EOMI. Absent: periorbital swelling - ENT ENT exam: Present: normal exam - Neck Neck exam: Present: normal inspection - Respiratory Respiratory exam: Present: clear to auscultation bilaterally. Absent: rales, rhonchi - Cardiovascular Cardiovascular exam: Present: regular rate and rhythm. Absent: systolic murmur - GI/Abdominal GI/Abdominal exam: Present: normal bowel sounds, tenderness, soft. Absent: guarding - Extremities Exam Extremities exam: Present: swollen right toe, TTP of right great toe, patient moves all five toes - Back Exam Back exam: Present: normal inspection - Neurological Exam Neurological exam: Present: lethargic, oriented X3 - Psychiatric Psychiatric exam: Present: normal affect - Skin Skin exam: Present: normal color Results - Labs CBC & BMP: 10/12/16 05:22 10/12/16 05:22 Lab Results: I have reviewed the past 24 hour labs
[2016-10-12] MEDS: cloNIDine 0.1 MG TABLET PO PRN ×2 (15:44→21:20)
[2016-10-12] MEDS: cefTRIAXone 1,000 MG in SODIUM CHLORIDE 0.9% 100 ML IV SCH (17:27)
[2016-10-12] MEDS: ALLOPURINOL 300 MG TABLET PO SCH (21:12)
[2016-10-12] MEDS: ZALEPLON 5 MG CAPSULE PO PRN (22:58)
[2016-10-12] MEDS: hydrALAZINE 20 MG/1 ML VIAL IV PRN (23:52)
[2016-10-13] MEDS: DESITIN 4OZ/NYSTATIN 15 GRAM MIXTURE PASTE TOP SCH ×3 (01:02→22:55)
[2016-10-13] MEDS ORDERED: FUROSEMIDE 40 MG/4 ML VIAL IV ONE (02:25)
[2016-10-13 06:17] LABS: Basophils % 0.3 % (0.0-0.8); Eosinophils # 0.1 10*3/uL (0.0-0.87); Eosinophils % 0.6 % (0.00-10.9); Hemoglobin 9.8 GM/DL (12.0-16.0); Immature Granulocytes % 0.8 %; Immature Granulocytes Absolute 0.12 #; Lymphocytes % 7.2 % (21.3-54.2); Mean Corpuscular HGB Conc 32.7 GM/DL (32-36); Mean Corpuscular Hemoglobin 31 PG (27-34); Mean Corpuscular Volume 96.2 FL (87-102); Mean Platelet Volume 10.5 FL (9.6-12.0); Monocytes # 1.8 10*3/uL (0.11-0.8); Monocytes % 12.6 % (1.7-12.7); Neutrophils # 11.2 10*3/uL (1.4-7.4); Neutrophils % 78.5 % (38.7-73.9); Platelet Count 287 10*3/uL (130-400); Red Blood Count 3.12 10*6/uL (3.8-5.5); Red Cell Distribution Width 12.8 % (9.3-17.3); White Blood Count 14.2 10*3/uL (4.5-13.71)
[2016-10-13 06:45] LABS: Calcium 7.5 MG/DL (8.5-10.1); Osmolality,Calculated 293.1 MOS/KG (273-304)
[2016-10-13 06:51] LABS: Potassium 2.5 MMOL/L (3.5-5.1)
[2016-10-13] MEDS: COLCHICINE 0.6 MG TABLET PO SCH (08:54)
[2016-10-13] MEDS: cloNIDine 0.1 MG TABLET PO PRN (08:55)
[2016-10-13] MEDS: OMEGA 3 ACID ETHYL ESTERS 1 GM CAPSULE PO SCH ×2 (08:55→20:47)
[2016-10-13] MEDS: SERTRALINE 100 MG TABLET PO SCH (08:55)
[2016-10-13] MEDS: LORazepam 1 MG TABLET PO SCH ×2 (08:55→20:47)
[2016-10-13] MEDS: POTASSIUM CHLORIDE 20 MEQ TABLET PO SCH ×3 (08:55→14:31)
[2016-10-13] MEDS: PANTOPRAZOLE 40 MG TABLET PO SCH (08:55)
[2016-10-13] MEDS: MAGNESIUM OXIDE 400 MG TABLET PO SCH ×2 (08:55→20:48)
[2016-10-13] MEDS ORDERED: HYDROCORTISONE 0.5% CREAM 28.35 GM TUBE TOP PRN (10:02)
--- NOTE | 2016-10-13 10:12 | Hospitalist Progress Note ---
<Sruthi Hoover - Last Filed: 10/13/16 10:03> Assessment and Plan - Time spent with patient Time spent with patient: Less than 30 minutes (due to assessment, plan and documentationl) (1) Acute renal failure Status: Acute Assessment and plan: resolved. creatinine now 1.0 gfr 64. ivf's have been stopped due to her being wet overnight Current Visit: Yes (2) Back pain Status: Acute Current Visit: Yes (3) Hyperkalemia, diminished renal excretion Status: Acute Assessment and plan: resolved Current Visit: Yes (4) Hypomagnesemia Status: Acute Current Visit: Yes (5) Gout attack Status: Acute Current Visit: Yes (6) HTN (hypertension) Status: Acute Assessment and plan: she is requiring PRN clonidine and hydralazine for BP control Current Visit: Yes (7) Diarrhea Status: Acute Assessment and plan: i have ordered stool cx's for parasites, c diff and wbc's await results: if negative, give immodium for relief; if pos- treat accordingly. Current Visit: Yes (8) Rash and nonspecific skin eruption Status: Acute Assessment and plan: daughter has noticed rash to abdomen and under left arm within the past day. Doesn't itch, and doesn't look like hives hydrocortisone for this Current Visit: Yes (9) Acute respiratory distress Status: Acute Assessment and plan: she required lasix and O2 overnight for fluid overload. this has resolved, not in distress at this time. Current Visit: Yes Hospitalist: Subjective Interval history: Ms. Lanier was seen today on rounds sitting up in bed. She has had a rough 24 hours according to family and nursing staff. She developed some fluid overload yesterday and her fluids were stopped and she was given IV lasix. Today, her lungs sound clear. She is on 2L and in no acute distress at this time. Of note, she did have a potassium this AM of 2.5 and I have ordered 40 mEq q4h x 3 doses with a repeat postassium level at 7pm tonight. Her acute renal failure has greatly improved from admission and is now 1.0 from 9.2. GFR 64 now from 4 on admit. She has had some issues with her BP as well and has Clonidine and Hydralazine ordered for BP control. She was just given Clonidine about 30 minutes ago and re-check was 195/83, will see how she responds after hydralazine. She does complain of left foot pain related to her gout. Uric acid this am 11.0. She is on allopurinol and colchicine. She does have a rash to her abdomen and under her left arm. She denies itching, but it is rough. She denies any shortness of breath, chest pain, hives with administration of her IV abx. I have ordered some hydrocortisone cream for this as well. Will continue to monitor her multiple issues along with Nephrology. Exam - Constitutional Vitals: Period Temp Pulse Resp BP Sys/Painting Pulse Ox Last 24 Hr 98.2 F-99.8 F 81-82 16-20 165-199/70-92 90-94 General appearance: normal weight, no acute distress - Head Head exam: Present: normal inspection, normocephalic - Eye Eye exam: Present: EOMI. Absent: scleral icterus Pupils: Present: MAY, normal accommodation - ENT ENT exam: Present: normal exam, normal oropharynx - Neck Neck exam: Present: normal inspection. Absent: lymphadenopathy - Respiratory Respiratory exam: Present: clear to auscultation bilaterally, other (on 2L). Absent: accessory muscle use - Cardiovascular Cardiovascular exam: Present: regular rate and rhythm. Absent: carotid bruit - GI/Abdominal GI/Abdominal exam: Present: normal bowel sounds, soft, other. Absent: tenderness - Extremities Exam Extremities exam: Present: normal inspection, other (gout right ankle, but doesn 't appear swollen or reddened at this time. ). Absent: edema - Back Exam Back exam: Present: normal inspection. Absent: muscle spasm - Skin Skin exam: Present: normal color, warm, dry, intact Results - Labs CBC & BMP: 10/13/16 05:47 10/13/16 05:47 Lab Results: I have reviewed the past 24 hour labs <Demetria Rivas - Last Filed: 10/13/16 16:20> Hospitalist: Subjective Interval history: Today: pt c/o mildly worsening left foot pain. Her PE unremerkable except that her b/l feet warm and very tender. She is on colchicine PRN, allopurinol 300 mg HS and started on prednisone 20 mg daily today by renal. She reminds HTN since admit. No on any home BP meds. Will start on norvasc 10 mg daily. cont labetalol 10 mg and hydralazine 10 mg q 4 hrs PRN. I will increase her allopurinol to 200 mg BID with total daily dose of 400 mg. Her uric acid 11. Kidney function improved with Cr 1.0 today. Appreciate renal assistance with management. I was paged at 12 00 today about persistent elevated BP with SBP in 190 after 10 mg of hydralazine. Norvasc 10 mg was initiated and labetalol 10 mg PRN was started. Around 1:30 she developed left sided CP, pressure like at rest, 12 lead ecg with NSR and ? ST elevation in lead I and AVL, no old ecg to compare. he troponin come back 0.121, on admit less then 0.015. Echo was ordered and cardiology was consulted. Her K level 2.5 this am, she received lasix last night . K was replaced with KCL 40 meq x3. Will recheck her K and Mg levels Exam - Constitutional Vitals: Period Temp Pulse Resp BP Sys/Painting Pulse Ox Last 24 Hr 98.1 F-99.8 F 76-83 16-20 156-199/71-92 90-94 Results - Labs CBC & BMP: 10/13/16 05:47 10/13/16 05:47
[2016-10-13] MEDS: hydrALAZINE 20 MG/1 ML VIAL IV PRN ×2 (11:00→13:18)
--- NOTE | 2016-10-13 11:13 | Nephrology Progress Note ---
Nephrology - PN: Subj Interval history: Ms. Lanier is seen in follow-up of her acute renal failure. This is now resolved with her creatinine now at 1.0. Her only complaint is pain in the right foot compatible with gout. Her uric acid is down to 11 and I think we need to continue to lower the uric acid for now to protect the kidney. Her chest is clear and she is in no distress. She has a good pulse in the right foot. She has a rash over her abdomen and that likely is due to Rocephin. She is already on low-dose colchicine to help with this gout. We will add 20 mg of prednisone daily for the short-term. Exam (PN)-Nephrology - Vital Signs Vital signs: Period Temp Pulse Resp BP Sys/Painting Pulse Ox Last 24 Hr 98.2 F-99.8 F 81-82 16-20 165-199/70-92 90-94 - Lab 10/13/16 05:47 10/13/16 05:47 Most recent lab results Calcium 7.5 MG/DL (8.5-10.1) L 10/13/16 05:47 Magnesium 1.4 MG/DL (1.8-2.4) L 10/12/16 05:22 Assessment and Plan (1) Acute renal failure Status: Acute Current Visit: Yes (2) Back pain Status: Acute Current Visit: Yes (3) Altered mental status Status: Acute Current Visit: Yes
[2016-10-13] MEDS: predniSONE 20 MG TABLET PO SCH (11:23)
[2016-10-13] MEDS: amLODIPine 10 MG TABLET PO SCH (12:12)
[2016-10-13] MEDS ORDERED: LABETALOL 20 MG/4 ML SYRINGE IV PRN (14:00)
[2016-10-13] MEDS ORDERED: NITROGLYCERIN SL 0.4 MG TABLET SL PRN (14:02)
--- NOTE | 2016-10-13 14:03 | EKG Report ---
Stationary ECG Study [facility] Test Date: 10/13/2016 2:02:56 PM Pat Name: JOE ZACARIAS Department: Room: 520 Gender: F Acrylic Fabricator: : 1955 Requested by: Sruthi Hoover Order Number: [id number] Reading MD: MALU SAN Intervals [place] Rate: 89 P: 43 NV: 160 QRS: 76 QRSD: 93 T: 58 QT: 388 QTc: 434 Interpretive Statements SINUS RHYTHM WITH OCCASIONAL VENTRICULAR PREMATURE COMPLEXES POSSIBLE LEFT ATRIAL ENLARGEMENT POSSIBLE ANTERIOR MYOCARDIAL INFARCTION, OF INDETERMINATE AGE vs ivcd Electronically Signed On 10-13-16 15:03:16 EVENT TECHNICIAN by MALU SAN [id number]
--- NOTE | 2016-10-13 14:10 | Event Note ---
Addendum entered and electronically signed by Sruthi Hoover NP 10/13/16 14:37: Pt did NOT have an TN based on EKG. Did not reflect STEMI. Original Note: <Sruthi Hoover - Last Filed: 10/13/16 14:07> Madyson RN called stating that Ms. Lanier's pressure has not improved with Clonidine, and 2 doses of hydralazine. Ms. Lanier was complaining of chest pain as well. Last check after medications was 188/84. EKG is being obtained when we arrived to the room. No acute changes seen per Dr. Rivas. Orders for labetalol 10 mg q 4 hrs PRN, serial troponins, cardiac monitoring and sublingual NTG ordered as well. We will continue to follow and treat as necessary. <Demetria Rivas - Last Filed: 10/13/16 16:23> Pt c/o left sided CP, 12 lead ecg -NSR with ? St changes in lead I and AVL, no old ecg to compare. Per pt, she does not have cardiac history, but she does not see PCP and never had stress test done. Her BP was elevated since admit. Norvasc was initiated today. Troponin come back 0.121, on admit it was less the 0.015. Nitro was given with CP relief. ECHO ordered and cardiology was consulted.
[2016-10-13 15:24] LABS: Troponin I Only 0.121 NG/ML (0.00-0.045)
[2016-10-13 16:50] LABS: Magnesium 1.1 MG/DL (1.8-2.4); Phosphorous 1.9 MG/DL (2.5-4.9); Potassium 2.8 MMOL/L (3.5-5.1)
[2016-10-13] MEDS ORDERED: POTASSIUM CHLORIDE 20 MEQ TABLET PO ONE (16:57)
[2016-10-13] MEDS ORDERED: MAGNESIUM SULF RIDER 4 GM in PREMIX 1 EACH IV ONE (16:58)
[2016-10-13] MEDS: cefTRIAXone 1,000 MG in SODIUM CHLORIDE 0.9% 100 ML IV SCH (17:12)
[2016-10-13 20:27] LABS: Troponin I Only 0.109 NG/ML (0.00-0.045)
[2016-10-13] MEDS: cloNIDine 0.1 MG TABLET PO SCH (20:47)
[2016-10-13] MEDS: ZALEPLON 5 MG CAPSULE PO PRN (20:48)
[2016-10-13] MEDS: ALLOPURINOL 100 MG TABLET PO SCH (20:50)
[2016-10-13] MEDS ORDERED: ENOXAPARIN 40 MG/0.4 ML SYRINGE SUBCUT ONE (22:35)
--- NOTE | 2016-10-13 22:48 | Cardiology Consult Note ---
I, Jahaira Baez RN, am scribing for, and in the presence of, Ryan Carpenter MD 22:44. Assessment and Plan - Time spent with patient Time spent with patient: Greater than 30 minutes (1) Chest pain Status: Acute Assessment and plan: Diagnosis would include coronary disease, GI, musculoskeletal, or stress/anxiety Plan/ recommendation : Replete the potassium magnesium, as you are doing. Treat for unstable angina for now. Aspirin 324 mg daily. Continue Lovenox. Nitropaste. EKG every morning 3. Agree with labetalol for blood pressure. TNG as needed chest pain. Echo Doppler has been ordered. I will review it tomorrow. Proton pump inhibitor. Elevate head of bed. Thank you for allowing me to participate in this patient's care Current Visit: Yes (2) Acute renal failure Status: Acute Current Visit: Yes (3) HTN (hypertension) Status: Acute Current Visit: Yes (4) Hypokalemia Status: Acute Current Visit: Yes (5) HEATH (generalized anxiety disorder) Status: Acute Current Visit: Yes (6) Hypomagnesemia Status: Acute Current Visit: Yes History of Present Illness - Data of Consult Patient: new to practice - Consult Narrative Reason for consult: chest pain and elevated troponin History of present illness: Ms. Lanier is a 61 year old female who has never seen a parts chaser with a history of hypertension, back and shoulder problems, anxiety/depression, and gout. Surgical history includes right leg, tubal ligation, tonsillectomy, and c -section. Family history includes mother with dementia and hypertension, father and brother with hypertension and heart disease. Her just over a month ago and since she has been living alone. According to daughter who live in [place],she had not been eating or drinking well and came into the hospital dehydrated with kidney issues and gout. Today her blood pressures elevated to 160-190/70-90 and she developed chest pain. According to chart, she was given clonidine and hydralazine for her pressure. Blood pressure at 1600 was 154/71. She reports the pain was a tightness in the left side of her chest and her left rib cage that lasted about 5 minutes. She denies having any shortness of breath, diaphoresis, or palpitations associated with it. Nothing made it worse, and it was relieved after taking NTG SL x 1 dose. The patient does not think this helped the pain, she thinks it was going away on its own. She is wearing oxygen via NBP, and reports she only gets short of breath when laying flat. Currently she is without chest pain or palpitations, sinus rhythm with heart rates in the 80's. Troponin on admission was <0.015, today it was 0.121. Potassium today is 2.5, and this was replaced with IV potassium. H&H is slightly improved at 9.8 and 30. BUN and creatinine are greatly improved at 44 and 1.0, up from 160 and 11.2 on admission. CC: Demetria Rivas MD - Home Medications and Allergies Home Medications: Home Medications Medication Instructions Recorded Confirmed Type Lisinopril/Hctz 20-12.5 [Prinzide 1 tablet PO DAILY 10/08/16 10/08/16 History 20-12.5] Clare-3 Fatty Acids [Fish Oil] 1,000 mg PO BID 10/08/16 10/08/16 History Omeprazole [Prilosec] 20 mg PO DAILY 10/08/16 10/08/16 History Sertraline [Zoloft] 100 mg PO DAILY 10/08/16 10/08/16 History Allergies/Adverse Reactions: Allergies Allergy/AdvReac Type Severity Reaction Status Date / Time No Known Allergies Allergy Unverified 10/08/16 19:26 - Constitutional Constitutional: Present: as per HPI - EENT Eyes: Present: requires corrective lense Ears: Absent: decreased hearing, ear pain, tinnitus Nose, mouth and throat: Present: other (reports having sores in her mouth). Absent: epistaxis, headache(s), neck pain - Cardiovascular Cardiovascular: Present: chest pain at rest (x 1 episode today), dyspnea (when laying flat). Absent: chest pain with activity, diaphoresis, dyspnea on exertion, edema, radiating jaw, neck or arm pain, lightheadedness, palpitations - Respiratory Respiratory: Present: dyspnea (when laying flat). Absent: cough, hemoptysis, dyspnea on exertion - Gastrointestinal Gastrointestinal: Present: diarrhea, nausea, vomiting. Absent: abdominal pain, constipation, hematemesis, hematochezia - Genitourinary Genitourinary: Present: vaginal discharge (reports a dark colored discharge). Absent: difficulty urinating, dysuria, flank pain, hematuria - Musculoskeletal Musculoskeletal: Present: back pain - Neurological Neurological: Present: abnormal gait, behavioral changes, frequent falls. Absent: confusion, dizziness, syncope, tremor(s) - Psychiatric Psychiatric: Present: anxiety, depression - Endocrine Endocrine: Present: fatigue - Hematologic/Lymphatic Hematologic/Lymphatic: Absent: easy bleeding, easy bruising Medical,Surgical,& Family Hx - Medical History Cardio: History of: Hypertension Psychological: History of: Anxiety Disorders Rheumatology: History of;: Gout (right foot) Musculoskeletal: History of: Back/Neck Problems - Surgical History HEENT Surgeries: Surgical HX of: Tonsilectomy & Adenoidectomy Reproductive Surgeries: Surgical HX of;: Section, Tubal Ligation Orthopedic Surgeries: Surgical HX of;: Orthopedic Surgery (Broken left leg repair) - Family History Family History: Reports;: Family Heart Disease (father and brother), Family Hypertension (mother father and brother), Family Psychiatric Problems (mother with anxiety and depression) Denies;: Family Anesthesia Reaction, Family Cancer, Family Diabetes, Family Hematology, Family Stroke, Additional Family History - Social History Smoking Status: Former smoker (states she quit 2-3 weeks ago) Have you smoked in the last 12 months: Yes Frequency of Alcohol Use: Occasionally Type of Drug Use: None Marital Status: Lives With:: Alone Functional capacity: uses cane/walker Physical Examination Vital Signs Temp Pulse Resp BP Pulse Ox 98.0 F 84 17 168/63 99 10/08/16 15:57 10/08/16 15:57 10/08/16 15:57 10/08/16 15:57 10/08/16 15:57 General: Present: Appears Well, No Apparent Distress HEENT: Present: Mucus Membranes Moist Neck: Present: Supple Neck, Midline Trachea, No JVD/HJR Cardiac: Present: Reg Rate and Rhythm, S1/S2 Lungs: Present: Normal Breath Sounds, Oxygen Neuro: Absent: Essential Tremor Abdomen: Present: Soft, Active Bowel Sounds, Non-Tender. Absent: Distended Skin: Present: Clear Musculoskeletal: Present: Decreased Range of Motion, Pain in Joint Gait: Present: Poor Gait Extremities: Present: No Edema, Normal Upper Extr. Pulses, Normal Lower Extr. Pulses. Absent: Normal Gait Other: No chest wall tenderness. 1/6 systolic ejection murmur along the right upper sternal border. Result/EKG - Labs CBC & BMP: 10/13/16 05:47 10/13/16 18:18 Lab Results: I have reviewed the past 24 hour labs Labs: Laboratory Results - last 24 hr 10/13/16 10/13/16 10/13/16 05:47 05:47 14:42 WBC 14.2 H D RBC 3.12 L Hgb 9.8 L Hct 30.0 L MCV 96.2 MCH 31 MCHC 32.7 RDW 12.8 Plt Count 287 MPV 10.5 Neut % (Auto) 78.5 H Lymph % (Auto) 7.2 L [place] % (Auto) 12.6 Eos % (Auto) 0.6 Baso % (Auto) 0.3 Neut # (Auto) 11.2 H Lymph # (Auto) 1.0 L [place] # (Auto) 1.8 H Eos # (Auto) 0.1 Baso # (Auto) 0.0 Immature Gran % 0.8 Nucleated RBC % 0.0 Immature Gran # 0.12 Nucleated RBCs # 0.00 Sodium 142 Potassium 2.5 L* Chloride 100 Carbon Dioxide 27 Anion Gap 17.5 H BUN 44 H Creatinine 1.00 GFR Calculation 64 BUN/Creatinine Ratio 44.00 H Glucose 99 Calculated Osmolality 293.1 Uric Acid 11.0 H Calcium 7.5 L Total Creatine Kinase 218 H D CK-MB (CK-2) 1.5 Troponin I 0.121 H - EKG EKG results: interpreted by me EKG shows: sinus rhythm Quality Measures - VTE Deep Vein Thrombosis/Pulmonary Embolism Present on Admission: No I, Ryan Carpenter MD, personally performed the services described in this documentation, ascribed by Jahaira Baez RN in my presence, and it is both accurate and complete 244 .
[2016-10-13] MEDS: ASPIRIN CHEW 81 MG TABLET PO SCH (23:03)
[2016-10-13] MEDS: traZODone 50 MG TABLET PO SCH (23:03)
[2016-10-14 05:32] LABS: Basophils % 0.1 % (0.0-0.8); Eosinophils # 0.1 10*3/uL (0.0-0.87); Eosinophils % 0.5 % (0.00-10.9); Hemoglobin 9.3 GM/DL (12.0-16.0); Immature Granulocytes % 0.8 %; Immature Granulocytes Absolute 0.12 #; Lymphocytes # 1.1 10*3/uL (1.4-4.0); Lymphocytes % 6.9 % (21.3-54.2); Mean Corpuscular HGB Conc 33.2 GM/DL (32-36); Mean Corpuscular Hemoglobin 32 PG (27-34); Mean Corpuscular Volume 95.2 FL (87-102); Mean Platelet Volume 10.6 FL (9.6-12.0); Monocytes # 1.9 10*3/uL (0.11-0.8); Monocytes % 12.3 % (1.7-12.7); Neutrophils # 12.2 10*3/uL (1.4-7.4); Neutrophils % 79.4 % (38.7-73.9); Platelet Count 260 10*3/uL (130-400); Red Blood Count 2.94 10*6/uL (3.8-5.5); Red Cell Distribution Width 13.1 % (9.3-17.3); White Blood Count 15.3 10*3/uL (4.5-13.71)
[2016-10-14 06:00] LABS: Calcium 7.5 MG/DL (8.5-10.1); Osmolality,Calculated 284.4 MOS/KG (273-304); Potassium 3.2 MMOL/L (3.5-5.1)
[2016-10-14 06:04] LABS: Albumin 2.6 G/DL (3.4-5.0); Bilirubin,Total 0.7 MG/DL (0.2-1.0); Calcium 7.5 MG/DL (8.5-10.1); Osmolality,Calculated 287.3 MOS/KG (273-304); Potassium 3.2 MMOL/L (3.5-5.1); Total Protein 5.8 G/DL (6.4-8.3)
[2016-10-14 06:08] LABS: Troponin I Only 0.095 NG/ML (0.00-0.045)
[2016-10-14] MEDS: ALBUTEROL/IPRATROPIUM 3 ML NEB RESP TX PRN (06:18)
--- NOTE | 2016-10-14 07:24 | XRay Report ---
XR chest 1V portable Indication: Chest pain and cough. Chest one view: Comparison 10/10/16. Mild cardiomegaly is stable. However, there is been a increase in pulmonary vascular congestion with hazy bilateral perihilar infiltrates present. Subpleural septal thickening at the lung bases noted. Left hemidiaphragm is now completely obscured as well. Impression: CHF decompensation. However, given the dense opacification of the retrocardiac left lower lobe, query superimposed aspiration pneumonia. PROCEDURE INTERPRETED AT [facility] DEPARTMENT OF RADIOLOGY Final Report Signed by: Valeriano Rolle M.D.
--- NOTE | 2016-10-14 08:14 | EKG Report ---
Stationary ECG Study [facility] Test Date: 10/14/2016 8:14:01 AM Pat Name: JOE ZACARIAS Department: Room: 520 Gender: F Hub Inventory Specialist: MAXIM : 1955 Requested by: Ryan Carpenter Order Number: [id number] Reading MD: MAJOR HELLER Intervals [place] Rate: 91 P: 49 SD: 151 QRS: 100 QRSD: 102 T: 26 QT: 366 QTc: 414 Interpretive Statements SINUS RHYTHM BORDERLINE RIGHT AXIS DEVIATION NONSPECIFIC T-WAVE ABNORMALITY Electronically Signed On 10-16-16 12:57:09 AUTISTIC TEACHER by MAJOR HELLER [email or web address]
--- NOTE | 2016-10-14 08:41 | Nephrology Progress Note ---
Nephrology - PN: Subj Interval history: Ms. Yo is is stable and her renal function has returned to normal with a serum creatinine of 0.9. Her gout in the right foot is still bothersome. Uric acid was not checked today but we will check it again tomorrow. We felt we had a little with uric acid acutely in view of renal protection. She began some prednisone yesterday to help with the gouty pain and she is taking low-dose colchicine. Her chest is clear and her heart without rub or gallop. She has no demonstrated infection so we will discontinue her Rocephin. She does have a rash that may well be due to that if it progresses despite coming off that then we would have to consider allopurinol as a possible source. Exam (PN)-Nephrology - Vital Signs Vital signs: Period Temp Pulse Resp BP Sys/Painting Pulse Ox Last 24 Hr 98.1 F-99.8 F 76-89 16-20 144-188/67-84 90-98 - Lab 10/14/16 05:05 10/14/16 05:05 Most recent lab results Calcium 7.5 MG/DL (8.5-10.1) L 10/14/16 05:05 Phosphorus 1.9 MG/DL (2.5-4.9) L 10/13/16 14:42 Magnesium 2.0 MG/DL (1.8-2.4) 10/14/16 05:05 Assessment and Plan (1) Acute renal failure Status: Acute Current Visit: Yes (2) Back pain Status: Acute Current Visit: Yes (3) Altered mental status Status: Acute Current Visit: Yes
[2016-10-14] MEDS ORDERED: ASPIRIN CHEW 81 MG TABLET PO SCH (09:00)
[2016-10-14] MEDS ORDERED: amLODIPine 10 MG TABLET PO SCH (09:00)
[2016-10-14] MEDS: ASPIRIN CHEW 81 MG TABLET PO SCH (09:56)
[2016-10-14] MEDS: COLCHICINE 0.6 MG TABLET PO SCH (09:57)
[2016-10-14] MEDS: LORazepam 1 MG TABLET PO SCH ×2 (09:57→20:43)
[2016-10-14] MEDS: amLODIPine 10 MG TABLET PO SCH (09:58)
[2016-10-14] MEDS: cloNIDine 0.1 MG TABLET PO SCH ×2 (09:58→20:39)
[2016-10-14] MEDS: ALLOPURINOL 100 MG TABLET PO SCH ×2 (09:58→20:38)
[2016-10-14] MEDS: OMEGA 3 ACID ETHYL ESTERS 1 GM CAPSULE PO SCH ×2 (09:58→20:39)
[2016-10-14] MEDS: PANTOPRAZOLE 40 MG TABLET PO SCH (09:58)
[2016-10-14] MEDS: DESITIN 4OZ/NYSTATIN 15 GRAM MIXTURE PASTE TOP SCH ×2 (09:59→20:45)
[2016-10-14] MEDS: SERTRALINE 100 MG TABLET PO SCH (09:59)
[2016-10-14] MEDS: MAGNESIUM OXIDE 400 MG TABLET PO SCH ×2 (09:59→20:38)
[2016-10-14] MEDS: ENOXAPARIN 40 MG/0.4 ML SYRINGE SUBCUT SCH (09:59)
[2016-10-14] MEDS: predniSONE 20 MG TABLET PO SCH (09:59)
[2016-10-14] MEDS ORDERED: FUROSEMIDE 40 MG/4 ML VIAL IV ONE (10:14)
[2016-10-14] MEDS ORDERED: SODIUM CHLOR 0.9% KCL 40 MEQ 40 MEQ/1,000 ML BAG IV SCH (10:30)
[2016-10-14] MEDS: CLINDAMYCIN INJ 900 MG in PREMIX 1 EACH IV SCH ×2 (10:50→17:41)
--- NOTE | 2016-10-14 14:43 | Case Mgmt Physician Query Form ---
TB Signs and Symptoms Screening ([place]) INSTRUCTIONS: To be completed annually on residents/staff with a significant Tuberculin Skin Test (TST) upon admission/hire or a prior significant TST. To be completed on all staff at hire. Please respond to each listed symptom with an (X) in either the "YES" or "NO" box. Do you currently have any of the following symptoms: YES NO ( ) ( ) A cough If yes, is it: ( ) Productive ( ) Non- productive ( ) ( ) Hemoptysis (spitting up blood) ( ) ( ) Chest pains ( ) ( ) Weight Loss ( ) ( ) Fever ( ) ( ) Night Sweats ( ) ( ) Weakness ( ) ( ) Loss of Appetite ( ) ( ) Difficulty Breathing If you answered YES" to any of the above questions, how long have symptoms been present? Comments: If you have any questions, please contact me . Thank you, Valentine BARAHONA Email: [email or web address] ANDREA
--- NOTE | 2016-10-14 16:48 | Hospitalist Progress Note ---
Assessment and Plan (1) Pneumonia Status: Acute Assessment and plan: chest x ray with dense opacification in left lower lobe suspicious for aspiration pneumonia start on clinda TID afebrile asymptomatic, denies cough Current Visit: Yes (2) Acute renal failure Status: Acute Assessment and plan: resolved on IV fluids avoid NSAIDS and nephrotoxic drugs Current Visit: Yes (3) Chest pain Status: Acute Assessment and plan: asymptomatic today troponins x 3 positive chest x ray - cardiac decompensation cardiology consulted echo is pending nitro PRN Current Visit: Yes (4) Gout attack Status: Acute Assessment and plan: cont colchicine PRN, low dose of steroids and allopurinol check uric acid tomorrow am Current Visit: Yes (5) HTN (hypertension) Status: Acute Assessment and plan: stable cont current meds low NA diet Current Visit: Yes (6) Hyperkalemia, diminished renal excretion Status: Acute Assessment and plan: luikely due to hypomagnesemia Mg level was 1.1 yesterday K - 3.2 after 40meq x3 and IV fluids with KCL may need to be dc with K supplement at home Current Visit: Yes (7) Hypomagnesemia Status: Acute Assessment and plan: Mg was replaced will recheck levels tomorrow if still low will need to be dc on Mg supplements Current Visit: Yes Hospitalist: Subjective Interval history: 61 yo WF who was admitted with ARF and creatinine 9. She completely recovered from ARF on IVF with helpof nephrology. She developed b/l heels sevre pain and her uric acid was elevated 11. Pt started on low dose of colchicine, prednisolone and allopurinol. Yesterday she developed hypertension and started c /o left sided chest pain. troponins x 3 were slightly elevated. cardiology was consulted. Echo is pending. She had some relief from nitro SL. her Mg- 11, K - 2.7 on yesterdays am labs. K and Mg were replaced IV. today: alert, oriented, denies CP but still c/o b/l heels pain, R worse then L, afebrile but WBC went to 1500, on low dose of steroids Chest x ray revealed- cardiac decompensation , dense opacification retrocardiac in right lower lobe/ aspiration pneumonia. Started on clinda for anaerobic coverage. waiting for echo results . Likely will be dc to swing bed. Still weak. CM consulted for placement Exam - Constitutional Vitals: Period Temp Pulse Resp BP Sys/Painting Pulse Ox Last 24 Hr 97.3 F-99.8 F 87-94 16-20 144-169/67-80 88-98 General appearance: normal weight, no acute distress - Head Head exam: Present: normal inspection, normocephalic, atraumatic - Eye Eye exam: Present: EOMI Pupils: Present: MAY - ENT ENT exam: Present: normal exam - Respiratory Respiratory exam: Present: clear to auscultation bilaterally, decreased breath sounds - Cardiovascular Cardiovascular exam: Present: regular rate and rhythm - GI/Abdominal GI/Abdominal exam: Present: normal bowel sounds, soft - Extremities Exam Extremities exam: Present: normal inspection, normal capillary refill - Neurological Exam Neurological exam: Present: alert, oriented X3 - Psychiatric Psychiatric exam: Present: normal affect, normal mood - Skin Skin exam: Present: normal color, warm (b/l heels warm and tender to touch ) Results - Labs CBC & BMP: 10/14/16 05:05 10/14/16 05:05 Quality Measures - VTE Deep Vein Thrombosis/Pulmonary Embolism Present on Admission: No
[2016-10-14] MEDS: SODIUM CHLOR 0.9% KCL 40 MEQ 40 MEQ/1,000 ML BAG IV SCH (17:00)
--- NOTE | 2016-10-14 18:34 | ECHO Report ---
Elizabeth Lanier Exam Date: 10/14/2016 09:03 Referring Physician: Technologist: Stefan VALERIO Age: 61 Ht (in): Wt (lb): Gender: F Exam Location: [facility] Echo Indications: Hyperkalemia, Hypercalcemia, anemia, hypomagnesemia, chest pain, UTI, acute renal failure BP: / HR: Rhythm: Sinus Technical Quality: IMPRESSIONS Technically adequate study Normal chamber sizes 1+ concentric LVH Normal LV systolic function with ejection fraction estimated to be 65% without segmental wall motion abnormality 1+ tricuspid regurgitation with RVSP 27 mmHg plus RAP Pleural effusion noted MEASUREMENTS (Male / Female) Normal Values 2D ECHO LV Diastolic Diameter PLAX 4.0 cm 4.2 - 5.9 / 3.9 - 5.3 cm LV Systolic Diameter PLAX 2.7 cm LV Fractional Shortening PLAX 33.5 % IVS Diastolic Thickness 1.4 cm 0.6 - 1.0 / 0.6 - 0.9 cm LVPW Diastolic Thickness 1.3 cm 0.6 - 1.0 / 0.6 - 0.9 cm RV Internal Dim ED PLAX 2.8 cm Aortic Root Diameter 2.4 cm LA Systolic Diameter LX 3.4 cm 3.0 - 4.0 / 2.7 - 3.8 cm DOPPLER TR Peak Velocity 258.0 cm/s TR Peak Gradient 26.6 mmHg FINDINGS Left Ventricle Moderately increased septal wall thickness. Mildly increased posterior wall thickness. Moderate concentric left ventricular hypertrophy with diastolic dysfunction. Left ventricular ejection fraction is estimated at 50-55 %. Right Ventricle Normal right ventricular size. Right Atrium Normal right atrial size. Left Atrium Normal left atrial size. Mitral Valve Mildly thickened mitral valve with mild mitral regurgitation. Aortic Valve Aortic valve sclerosis without stenosis or regurgitation. Tricuspid Valve Morphologically normal tricuspid valve. Moderate tricuspid valve regurgitation. Tricuspid regurgitation velocities suggest a PAP of 26.6 mmHg + RAP. Pulmonic Valve Morphologically normal pulmonic valve. Trace pulmonary valve regurgitation. Pericardium Small pericardial effusion + pleural effusion. Aorta Normal size aortic root and proximal ascending aorta. Fer Palmer (Electronically Signed) Final Date: 14 October 2016 18:33
--- NOTE | 2016-10-14 20:27 | Cardiology Progress Note ---
I, Jahaira Baez RN, am scribing for, and in the presence of, Ryan Carpenter MD 20:26. Assessment and Plan (1) Chest pain Status: Acute Assessment and plan: Initial assessment 10/13/16 Diagnosis would include coronary disease, GI, musculoskeletal, or stress/anxiety Plan/ recommendation : Replete the potassium magnesium, as you are doing. Treat for unstable angina for now. Aspirin 324 mg daily. Continue Lovenox. Nitropaste. EKG every morning 3. Agree with labetalol for blood pressure. TNG as needed chest pain. Echo Doppler has been ordered. I will review it tomorrow. Proton pump inhibitor. Elevate head of bed. 10/14/16-Plan/ recommendation : Chest x-ray was consistent with heart failure and pneumonia. She is on about antibiotics. She was given some IV IV Lasix. I will continue a low-dose of IV Lasix, add low-dose of Capoten, Spironolactone , and carvedilol. This could be diastolic heart failure or it could be related to her getting IV fluids in the hospital. Will watch blood pressure with these medications. Watch renal function with these medications. We will reduce IV fluids to 25 cc/h. Will give some KCl powder because she cannot take the pills. Will recheck lites, BUN,. Creatinine in the a.m. Current Visit: Yes (2) Acute renal failure Status: Acute Current Visit: Yes (3) HTN (hypertension) Status: Acute Current Visit: Yes (4) Hypokalemia Status: Acute Current Visit: Yes Cardiology - PN: Subj Interval history: Resting in bed in no acute distress, oxygen in use via NBP. She denies any chest pain or palpitations, reports breathing is better. Pressures have been running 150-160/70. Exam (Progress Note) - Constitutional Vitals: Period Temp Pulse Resp BP Sys/Painting Pulse Ox Last 24 Hr 97.3 F-99.8 F 76-94 16-20 144-169/67-80 88-98 General appearance: no acute distress - Head Head exam: Present: normal inspection - Neck Neck exam: Absent: tenderness - Respiratory Respiratory exam: Present: other (oxygen in use, coarse breath sounds). Absent : accessory muscle use, chest wall tenderness - Cardiovascular Cardiovascular exam: Present: regular rate and rhythm - GI/Abdominal GI/Abdominal exam: Present: normal bowel sounds, soft. Absent: distended, tenderness - Extremities Exam Extremities exam: Absent: edema - Neurological Exam Neurological exam: Present: alert, oriented X3 - Psychiatric Psychiatric exam: Present: flat affect - Skin Skin exam: Present: warm, dry Result/EKG - Labs CBC & BMP: 10/14/16 05:05 10/14/16 05:05 Labs: Laboratory Results - last 24 hr 10/13/16 10/13/16 10/13/16 14:42 14:42 18:18 WBC RBC Hgb Hct MCV MCH MCHC RDW Plt Count MPV Neut % (Auto) Lymph % (Auto) [place] % (Auto) Eos % (Auto) Baso % (Auto) Neut # (Auto) Lymph # (Auto) [place] # (Auto) Eos # (Auto) Baso # (Auto) Immature Gran % Nucleated RBC % Immature Gran # Nucleated RBCs # Sodium Potassium 2.8 L 3.1 L Chloride Carbon Dioxide Anion Gap BUN Creatinine GFR Calculation BUN/Creatinine Ratio Glucose Calculated Osmolality Calcium Phosphorus 1.9 L Magnesium 1.1 L Total Bilirubin AST ALT Alkaline Phosphatase Total Creatine Kinase 218 H D CK-MB (CK-2) 1.5 Troponin I 0.121 H Total Protein Albumin Globulin Albumin/Globulin Ratio 10/13/16 10/14/16 10/14/16 19:46 05:05 05:05 WBC RBC Hgb Hct MCV MCH MCHC RDW Plt Count MPV Neut % (Auto) Lymph % (Auto) [place] % (Auto) Eos % (Auto) Baso % (Auto) Neut # (Auto) Lymph # (Auto) [facility] # (Auto) Eos # (Auto) Baso # (Auto) Immature Gran % Nucleated RBC % Immature Gran # Nucleated RBCs # Sodium 140 Potassium 3.2 L Chloride 100 Carbon Dioxide 28 Anion Gap 15.2 H BUN 30 H D Creatinine 0.80 GFR Calculation 84 BUN/Creatinine Ratio 37.00 H Glucose 93 Calculated Osmolality 284.4 Calcium 7.5 L Phosphorus Magnesium 2.0 Total Bilirubin AST ALT Alkaline Phosphatase Total Creatine Kinase 217 H CK-MB (CK-2) 1.3 Troponin I 0.109 H Total Protein Albumin Globulin Albumin/Globulin Ratio 10/14/16 10/14/16 10/14/16 05:05 05:05 05:05 WBC 15.3 H RBC 2.94 L Hgb 9.3 L Hct 28.0 L MCV 95.2 MCH 32 MCHC 33.2 RDW 13.1 Plt Count 260 MPV 10.6 Neut % (Auto) 79.4 H Lymph % (Auto) 6.[address] [place] % (Auto) 12.3 Eos % (Auto) 0.5 Baso % (Auto) 0.1 Neut # (Auto) 12.2 H Lymph # (Auto) 1.[address] [place] # (Auto) 1.9 H Eos # (Auto) 0.1 Baso # (Auto) 0.0 Immature Gran % 0.8 Nucleated RBC % 0.0 Immature Gran # 0.12 Nucleated RBCs # 0.00 Sodium 141 Potassium 3.2 L Chloride 101 Carbon Dioxide 27 Anion Gap 16.2 H BUN 31 H Creatinine 0.90 GFR Calculation 72 BUN/Creatinine Ratio 34.00 H Glucose 94 Calculated Osmolality 287.3 Calcium 7.5 L Phosphorus Magnesium Total Bilirubin 0.70 AST 29 ALT 16 Alkaline Phosphatase 116 Total Creatine Kinase 201 H CK-MB (CK-2) 1.4 Troponin I 0.095 H Total Protein 5.8 L Albumin 2.6 L Globulin 3.2 Albumin/Globulin Ratio 0.8 L Quality Measures - VTE Deep Vein Thrombosis/Pulmonary Embolism Present on Admission: No I, Ryan Carpenter MD, personally performed the services described in this documentation, ascribed by Jahaira Baez RN in my presence, and it is both accurate and complete .
[2016-10-14] MEDS: CARVEDILOL 3.125 MG TABLET PO SCH (20:39)
[2016-10-14] MEDS: traZODone 50 MG TABLET PO SCH (20:39)
[2016-10-14] MEDS: ZALEPLON 5 MG CAPSULE PO PRN (20:39)
[2016-10-14] MEDS: SPIRONOLACTONE 25 MG TABLET PO SCH (20:54)
[2016-10-15] MEDS: ALBUTEROL/IPRATROPIUM 3 ML NEB RESP TX PRN (01:20)
[2016-10-15] MEDS: CLINDAMYCIN INJ 900 MG in PREMIX 1 EACH IV SCH ×2 (02:02→10:22)
[2016-10-15] MEDS: CAPTOPRIL 6.25 MG TABLET PO SCH ×4 (05:05→20:24)
--- NOTE | 2016-10-15 07:04 | EKG Report ---
Stationary ECG Study [facility] Test Date: 10/15/2016 7:03:51 AM Pat Name: JOE ZACARIAS Department: Room: 520 Gender: F Notereader: MAXIM : 1955 Requested by: Ryan Carpenter Order Number: [id number] Reading MD: MAJOR HELLER Intervals [place] Rate: 85 P: 74 MN: 167 QRS: 103 QRSD: 89 T: 69 QT: 355 QTc: 397 Interpretive Statements SINUS RHYTHM MARKED RIGHT AXIS DEVIATION NONSPECIFIC T-WAVE ABNORMALITY Electronically Signed On 10-16-16 13:26:39 FOUNDRY WORKER APPRENTICE by MAJOR HELLER [email or web address]
[2016-10-15 07:17] LABS: Calcium 7.5 MG/DL (8.5-10.1); Osmolality,Calculated 277.7 MOS/KG (273-304)
--- NOTE | 2016-10-15 08:43 | Nephrology Progress Note ---
Nephrology - PN: Subj Interval history: His white is seen in follow-up of her acute renal failure which is now resolved and her hyperuricemia which is coming under control. Uric acid today is 7.7. I expect this to continue to follow with continued use of 300 mg of allopurinol daily. Is requesting Mucinex and we are going to give her that. She has no peripheral edema her right foot is still involved with gout and is painful as would be expected. I do not think we will continue the prednisone for any length of time but we can continue to use low-dose colchicine for now. She is somewhat short of breath but her chest sounds fairly clear. Going to repeat a chest x-ray Exam (PN)-Nephrology - Vital Signs Vital signs: Period Temp Pulse Resp BP Sys/Painting Pulse Ox Last 24 Hr 97.3 F-99.2 F 79-90 18-20 150-172/65-84 88-92 - Lab 10/14/16 05:05 10/15/16 05:31 Most recent lab results Calcium 7.5 MG/DL (8.5-10.1) L 10/15/16 05:31 Phosphorus 1.9 MG/DL (2.5-4.9) L 10/13/16 14:42 Magnesium 1.5 MG/DL (1.8-2.4) L 10/15/16 05:31 Assessment and Plan (1) Acute renal failure Status: Acute Current Visit: Yes (2) Back pain Status: Acute Current Visit: Yes (3) Altered mental status Status: Acute Current Visit: Yes
[2016-10-15] MEDS ORDERED: POTASSIUM CHLORIDE 20 MEQ TABLET PO SCH (09:00)
[2016-10-15] MEDS ORDERED: MAGNESIUM SULF RIDER 2 GM in PREMIX 1 EACH IV ONE (09:37)
[2016-10-15] MEDS: ALLOPURINOL 100 MG TABLET PO SCH ×2 (09:53→20:19)
[2016-10-15] MEDS: ASPIRIN CHEW 81 MG TABLET PO SCH (09:53)
[2016-10-15] MEDS: OMEGA 3 ACID ETHYL ESTERS 1 GM CAPSULE PO SCH ×2 (09:54→20:20)
[2016-10-15] MEDS: DOCUSATE SODIUM 100 MG CAPSULE PO PRN (09:54)
[2016-10-15] MEDS: MAGNESIUM OXIDE 400 MG TABLET PO SCH ×3 (09:54→20:19)
[2016-10-15] MEDS: CARVEDILOL 3.125 MG TABLET PO SCH ×2 (09:54→20:20)
[2016-10-15] MEDS: LORazepam 1 MG TABLET PO SCH ×2 (09:54→20:21)
[2016-10-15] MEDS: cloNIDine 0.1 MG TABLET PO SCH ×2 (09:54→20:20)
[2016-10-15] MEDS: amLODIPine 10 MG TABLET PO SCH (09:54)
[2016-10-15] MEDS: FUROSEMIDE 20 MG/2 ML VIAL IV SCH (09:55)
[2016-10-15] MEDS: DESITIN 4OZ/NYSTATIN 15 GRAM MIXTURE PASTE TOP SCH ×2 (09:55→20:20)
[2016-10-15] MEDS: COLCHICINE 0.6 MG TABLET PO SCH (09:55)
[2016-10-15] MEDS: ENOXAPARIN 40 MG/0.4 ML SYRINGE SUBCUT SCH (09:55)
[2016-10-15] MEDS: SPIRONOLACTONE 25 MG TABLET PO SCH ×2 (10:08→20:22)
[2016-10-15] MEDS: SERTRALINE 100 MG TABLET PO SCH (10:08)
[2016-10-15] MEDS: predniSONE 20 MG TABLET PO SCH (10:08)
[2016-10-15] MEDS: POTASSIUM CHLORIDE 20 MEQ PACK PO SCH (10:09)
[2016-10-15] MEDS: PANTOPRAZOLE 40 MG TABLET PO SCH (10:09)
--- NOTE | 2016-10-15 12:05 | XRay Report ---
XR chest 1V portable Indication: Shortness of breath. Chest one view: Comparison 10/14/16. Mild cardiomegaly, alveolar opacities bilaterally, and hazy obscuration of the left greater than right lung base again noted. No new densities are seen. Impression: No change. PROCEDURE INTERPRETED AT [facility] DEPARTMENT OF RADIOLOGY Final Report Signed by: Valeriano Rolle M.D.
--- NOTE | 2016-10-15 12:42 | Hospitalist Progress Note ---
Assessment and Plan (1) Gout attack Status: Acute Assessment and plan: already on oral steroids but will give a 1 time dose of IV Current Visit: Yes (2) Acute renal failure Status: Acute Current Visit: Yes (3) Hyperkalemia, diminished renal excretion Status: Resolved Current Visit: Yes (4) Aspiration pneumonia Status: Acute Assessment and plan: continue with IV abx, DuoNebs Current Visit: Yes Qualifiers: Laterality: right Hospitalist: Subjective Interval history: Patient is complaining of shortness of breath but her Oxygen sats are good, also c/o her gout pain. Exam - Constitutional Vitals: Period Temp Pulse Resp BP Sys/Painting Pulse Ox Last 24 Hr 98.1 F-99.2 F 79-90 18-20 150-172/65-84 89-92 General appearance: no acute distress - Head Head exam: Present: normocephalic, atraumatic - Eye Eye exam: Present: EOMI Pupils: Present: MAY - ENT ENT exam: Present: normal exam - Neck Neck exam: Present: normal inspection - Respiratory Respiratory exam: Present: decreased breath sounds (bilateral base) - Cardiovascular Cardiovascular exam: Present: regular rate and rhythm - GI/Abdominal GI/Abdominal exam: Present: normal bowel sounds, soft - Extremities Exam Extremities exam: Present: full ROM - Neurological Exam Neurological exam: Present: alert, oriented X3, CN II-XII intact - Psychiatric Psychiatric exam: Present: normal affect, normal mood - Skin Skin exam: Present: warm, intact Results - Labs CBC & BMP: 10/14/16 05:05 10/15/16 05:31 Quality Measures - VTE Deep Vein Thrombosis/Pulmonary Embolism Present on Admission: No
[2016-10-15] MEDS ORDERED: methylPREDNISolone SOD SUC 40 MG/1 ML VIAL IV ONE (12:44)
[2016-10-15] MEDS: PIPERACILLIN/TAZOBACTAM 3,375 MG in SODIUM CHLORIDE 0.9% 100 ML IV SCH ×2 (13:56→22:00)
[2016-10-15] MEDS ORDERED: PIPERACILLIN/TAZOBACTAM 3,375 MG in SODIUM CHLORIDE 0.9% 100 ML IV SCH (14:00)
[2016-10-15] MEDS ORDERED: POTASSIUM CHLORIDE 20 MEQ PACK PO ONE (18:00)
[2016-10-15] MEDS: ZALEPLON 5 MG CAPSULE PO PRN (20:19)
[2016-10-15] MEDS: traZODone 50 MG TABLET PO SCH (20:20)
--- NOTE | 2016-10-15 21:32 | Cardiology Progress Note ---
I, Jahaira Baez RN, am scribing for, and in the presence of, Ryan Carpenter MD 21:28. Assessment and Plan (1) Chest pain Status: Acute Assessment and plan: Initial assessment 10/13/16 Diagnosis would include coronary disease, GI, musculoskeletal, or stress/anxiety Plan/ recommendation : Replete the potassium magnesium, as you are doing. Treat for unstable angina for now. Aspirin 324 mg daily. Continue Lovenox. Nitropaste. EKG every morning 3. Agree with labetalol for blood pressure. TNG as needed chest pain. Echo Doppler has been ordered. I will review it tomorrow. Proton pump inhibitor. Elevate head of bed. 10/14/16-Plan/ recommendation : Chest x-ray was consistent with heart failure and pneumonia. She is on about antibiotics. She was given some IV IV Lasix. I will continue a low-dose of IV Lasix, add low-dose of Capoten, Spironolactone , and carvedilol. This could be diastolic heart failure or it could be related to her getting IV fluids in the hospital. Will watch blood pressure with these medications. Watch renal function with these medications. We will reduce IV fluids to 25 cc/h. Will give some KCl powder because she cannot take the pills. Will recheck lites, BUN,. Creatinine in the a.m. 10/15/16-plan/recommendation: Her breathing is slightly better. She feels she is having less fluid overload. Less no difficulty with the new meds. Chest x- ray is unchanged. Has low magnesium and low potassium. Was given mag sulfate 2 g IV over 2 hours and her Mag-Ox that was increased to 800 mg p.o. twice daily. I gave her 40 mEq of the powdered potassium in liquid this morning I will give her some more in the evening. Will recheck labs in the a.m. the above was discussed with the patient and her sister. They voiced understanding and agree with the plan. Current Visit: Yes (2) Acute renal failure Status: Acute Current Visit: Yes (3) HTN (hypertension) Status: Acute Current Visit: Yes (4) Hypokalemia Status: Acute Current Visit: Yes (5) Hypokalemia Status: Acute Current Visit: Yes (6) Heart failure, diastolic, acute on chronic Status: Acute Current Visit: Yes (7) Aspiration pneumonia Status: Acute Current Visit: Yes Qualifiers: Laterality: right (8) HEATH (generalized anxiety disorder) Status: Acute Current Visit: Yes (9) Gout attack Status: Acute Current Visit: Yes (10) Hypomagnesemia Status: Acute Current Visit: Yes (11) Pneumonia Status: Acute Current Visit: Yes Cardiology - PN: Subj Interval history: Resting in bed in no acute distress, oxygen in use via NBP. Daughter is at bedside. Denies chest pain or palpitations, reports her breathing is a little better. Her daughter reports her breathing seemed a lot better last night, but not so much this morning. She does complain of pain of feet and legs. Her pressures are a little better running 160/80. CXR done today is read as unchanged. EKG done this am was sinus rhythm with heart rate of 85. BUN and creatinine 23 and 0.8, slightly improved. Magnesium 1.5 has been replaced intravenously today. She is on daily scheduled doses of potassium, the last one given yesterday afternoon, her potassium today is 3.0. She is on Lasix 20mg IV daily. Exam (Progress Note) - Constitutional Vitals: Period Temp Pulse Resp BP Sys/Painting Pulse Ox Last 24 Hr 98.1 F-99.2 F 79-90 18-20 150-172/65-84 89-92 General appearance: no acute distress - Head Head exam: Present: normal inspection - Neck Neck exam: Absent: tenderness - Respiratory Respiratory exam: Present: rales, other (oxygen in use) - Cardiovascular Cardiovascular exam: Present: regular rate and rhythm - GI/Abdominal GI/Abdominal exam: Present: normal bowel sounds, soft. Absent: distended, tenderness - Extremities Exam Extremities exam: Present: other (c/o pain from gout in lower extremities). Absent: edema - Neurological Exam Neurological exam: Present: alert, oriented X3 - Psychiatric Psychiatric exam: Present: flat affect - Skin Skin exam: Present: warm, dry Result/EKG - Labs CBC & BMP: 10/14/16 05:05 10/15/16 05:31 Lab Results: I have reviewed the past 24 hour labs Labs: Laboratory Results - last 24 hr 10/15/16 10/15/16 10/15/16 05:31 05:31 05:32 Sodium 138 Potassium 3.0 L Chloride 96 L Carbon Dioxide 27 Anion Gap 18.0 H BUN 23 H Creatinine 0.80 GFR Calculation 84 BUN/Creatinine Ratio 28.00 H Glucose 78 Calculated Osmolality 277.7 Uric Acid 7.7 H Calcium 7.5 L Magnesium 1.5 L - EKG EKG results: interpreted by me EKG shows: sinus rhythm Quality Measures - VTE Deep Vein Thrombosis/Pulmonary Embolism Present on Admission: No I, Ryan Carpenter MD, personally performed the services described in this documentation, ascribed by Jahaira Baez RN in my presence, and it is both accurate and complete .
[2016-10-16] MEDS: PIPERACILLIN/TAZOBACTAM 3,375 MG in SODIUM CHLORIDE 0.9% 100 ML IV SCH ×3 (06:00→21:00)
[2016-10-16 06:19] LABS: Basophils % 0.1 % (0.0-0.8); Hematocrit 28.5 VOL% (35.7-47.0); Hemoglobin 9.3 GM/DL (12.0-16.0); Immature Granulocytes % 0.6 %; Immature Granulocytes Absolute 0.08 #; Lymphocytes # 0.8 10*3/uL (1.4-4.0); Lymphocytes % 6.1 % (21.3-54.2); Mean Corpuscular HGB Conc 32.6 GM/DL (32-36); Mean Corpuscular Hemoglobin 32 PG (27-34); Mean Corpuscular Volume 97.9 FL (87-102); Mean Platelet Volume 10.4 FL (9.6-12.0); Monocytes % 7.6 % (1.7-12.7); Neutrophils # 11.1 10*3/uL (1.4-7.4); Neutrophils % 85.6 % (38.7-73.9); Platelet Count 335 10*3/uL (130-400); Red Blood Count 2.91 10*6/uL (3.8-5.5); White Blood Count 12.9 10*3/uL (4.5-13.71)
[2016-10-16 06:57] LABS: Magnesium 1.7 MG/DL (1.8-2.4); Osmolality,Calculated 278.7 MOS/KG (273-304); Potassium 3.5 MMOL/L (3.5-5.1)
--- NOTE | 2016-10-16 07:04 | EKG Report ---
Stationary ECG Study [facility] Test Date: 10/16/2016 7:03:46 AM Pat Name: JOE ZACARIAS Department: Room: 520 Gender: F Software Systems Architect: MAXIM : 1955 Requested by: Ryan Carpenter Order Number: [id number] Reading MD: MAJOR HELLER Intervals [place] Rate: 85 P: 75 AL: 162 QRS: 105 QRSD: 90 T: 67 QT: 356 QTc: 398 Interpretive Statements SINUS RHYTHM MARKED RIGHT AXIS DEVIATION Electronically Signed On 10-16-16 14:04:08 CONVEYOR MECHANIC by MAJOR HELLER [id number]
[2016-10-16] MEDS: SODIUM CHLOR 0.9% KCL 40 MEQ 40 MEQ/1,000 ML BAG IV SCH (07:23)
[2016-10-16] MEDS: predniSONE 20 MG TABLET PO SCH (09:03)
[2016-10-16] MEDS: MAGNESIUM OXIDE 400 MG TABLET PO SCH ×2 (09:03→20:52)
[2016-10-16] MEDS: PANTOPRAZOLE 40 MG TABLET PO SCH (09:03)
[2016-10-16] MEDS: ENOXAPARIN 40 MG/0.4 ML SYRINGE SUBCUT SCH (09:03)
[2016-10-16] MEDS: POTASSIUM CHLORIDE 20 MEQ PACK PO SCH (09:03)
[2016-10-16] MEDS: COLCHICINE 0.6 MG TABLET PO SCH (09:04)
[2016-10-16] MEDS: amLODIPine 10 MG TABLET PO SCH (09:04)
[2016-10-16] MEDS: SPIRONOLACTONE 25 MG TABLET PO SCH ×2 (09:04→20:54)
[2016-10-16] MEDS: ASPIRIN CHEW 81 MG TABLET PO SCH (09:05)
[2016-10-16] MEDS: FUROSEMIDE 20 MG/2 ML VIAL IV SCH (09:06)
[2016-10-16] MEDS: LORazepam 1 MG TABLET PO SCH ×2 (09:07→20:51)
[2016-10-16] MEDS: cloNIDine 0.1 MG TABLET PO SCH ×2 (09:08→20:55)
[2016-10-16] MEDS: OMEGA 3 ACID ETHYL ESTERS 1 GM CAPSULE PO SCH ×2 (09:08→20:50)
[2016-10-16] MEDS: ALLOPURINOL 100 MG TABLET PO SCH ×2 (09:08→20:51)
[2016-10-16] MEDS: DESITIN 4OZ/NYSTATIN 15 GRAM MIXTURE PASTE TOP SCH ×2 (09:08→20:56)
[2016-10-16] MEDS: CARVEDILOL 3.125 MG TABLET PO SCH ×2 (09:08→20:51)
[2016-10-16] MEDS: SERTRALINE 100 MG TABLET PO SCH (09:08)
[2016-10-16] MEDS: CAPTOPRIL 6.25 MG TABLET PO SCH ×4 (09:08→20:53)
--- NOTE | 2016-10-16 09:13 | EKG Report ---
Stationary ECG Study [facility] Test Date: 10/16/2016 8:52:12 AM Pat Name: JOE ZACARIAS Department: Room: 520 Gender: F Lithoduplicator Operator: : 1955 Requested by: Demetria Rivas Order Number: [id number] Reading MD: MAJOR HELELR Intervals [place] Rate: 88 P: 68 DC: 163 QRS: 101 QRSD: 89 T: 13 QT: 361 QTc: 407 Interpretive Statements SINUS RHYTHM MARKED RIGHT AXIS DEVIATION Electronically Signed On 10-16-16 14:13:18 HUMAN RESOURCE PROFESSIONAL by MAJOR HELLER [id number]
--- NOTE | 2016-10-16 09:31 | Hospitalist Progress Note ---
Assessment and Plan - Time spent with patient Time spent with patient: Less than 30 minutes (1) Acute renal failure Status: Acute Assessment and plan: resolved. Current Visit: Yes (2) Back pain Status: Acute Current Visit: Yes (3) Hyperkalemia, diminished renal excretion Status: Resolved Assessment and plan: resolved Current Visit: Yes (4) Hypomagnesemia Status: Resolved Current Visit: Yes (5) Gout attack Status: Acute Current Visit: Yes (6) HTN (hypertension) Status: Acute Assessment and plan: Her BP is now under good control Current Visit: Yes (7) Diarrhea Status: Acute Assessment and plan: no longer having diarrhea. cx's negative. Current Visit: Yes (8) Rash and nonspecific skin eruption Status: Acute Current Visit: Yes (9) Acute respiratory distress Status: Acute Assessment and plan: on o2, no longer having respiratory distress. Current Visit: Yes (10) Gout attack Status: Acute Assessment and plan: allopurinol, colchicine prednisone 20 mg Daily. Current Visit: Yes Hospitalist: Subjective Interval history: Ms. Lanier is seen this morning getting her bath. She does complain of her right foot hurting. She states that she gets short of breath with her bath. Her allopurinol was increased a couple of days ago and she has been started on prednisone 20 mg daily. Her foot is not reddened or swollen at this time. Her [place] had dropped off, and I have renewed this. Her potassium is up to 3.5 today and her Mag is 1.7 today. We will continue her on replacement therapy. Lungs still sounds a little wet. Will get a repeat cxr this morning to compare to before. Daughter is at bedside. Questions were answered. We will continue to follow along with Nephrology and Cardiology. Exam - Constitutional Vitals: Period Temp Pulse Resp BP Sys/Painting Pulse Ox Last 24 Hr 97.3 F-99.2 F 75-87 18-20 146-162/72-79 90-94 General appearance: normal weight, no acute distress - Head Head exam: Present: normal inspection, normocephalic - Eye Eye exam: Present: EOMI. Absent: scleral icterus Pupils: Present: MAY, normal accommodation - ENT ENT exam: Present: normal exam, normal oropharynx - Neck Neck exam: Present: normal inspection. Absent: lymphadenopathy - Respiratory Respiratory exam: Present: other (wet sounding lungs). Absent: accessory muscle use - Cardiovascular Cardiovascular exam: Present: regular rate and rhythm. Absent: carotid bruit - GI/Abdominal GI/Abdominal exam: Present: normal bowel sounds, soft. Absent: tenderness - Extremities Exam Extremities exam: Present: normal inspection. Absent: edema - Back Exam Back exam: Present: normal inspection. Absent: muscle spasm - Neurological Exam Neurological exam: Present: alert, oriented X3 - Psychiatric Psychiatric exam: Present: agitated - Skin Skin exam: Present: normal color, warm, dry, intact Results - Labs CBC & BMP: 10/16/16 05:29 10/16/16 05:29 Lab Results: I have reviewed the past 24 hour labs Quality Measures - VTE Deep Vein Thrombosis/Pulmonary Embolism Present on Admission: No
[2016-10-16] MEDS ORDERED: FUROSEMIDE 40 MG/4 ML VIAL IV ONE (09:50)
--- NOTE | 2016-10-16 09:54 | Nephrology Progress Note ---
Nephrology - PN: Subj Interval history: Ms. Yo is seen in follow-up of her acute renal failure, gallop, fluid overload. A renal failure resolved with a creatinine less than 1. With her ongoing Problem we now can stop prednisone and using nonsteroidal instated. She does have considerable sacral edema along with pulmonary edema confirmed by chest x-ray. She remains somewhat short of breath will improve with diuresis. We will have to continue to supplement potassium. I think we should continue to maintain her uric acid below 5.5 in order to prevent future attacks of gout. She seems to be tolerating the 0.6 mg of colchicine fairly well but it has produced some loose stools. If that persists the dose could be decreased to 0.3. We will stop with low-dose daily Lasix and give a single IV dose of Lasix today and hopefully that will be enough to clear her lungs improve her breathing. With her renal function now normal. I'll sign off Exam (PN)-Nephrology - Vital Signs Vital signs: Period Temp Pulse Resp BP Sys/Painting Pulse Ox Last 24 Hr 97.3 F-99.2 F 75-87 18-20 146-162/72-79 90-94 - Lab 10/16/16 05:29 10/16/16 05:29 Most recent lab results Calcium 8.0 MG/DL (8.5-10.1) L 10/16/16 05:29 Phosphorus 1.9 MG/DL (2.5-4.9) L 10/13/16 14:42 Magnesium 1.7 MG/DL (1.8-2.4) L 10/16/16 05:29 Assessment and Plan (1) Acute renal failure Status: Acute Current Visit: Yes (2) Back pain Status: Acute Current Visit: Yes (3) Altered mental status Status: Acute Current Visit: Yes
[2016-10-16] MEDS ORDERED: methylPREDNISolone SOD SUC 125 MG/2 ML VIAL IV ONE (12:22)
--- NOTE | 2016-10-16 12:45 | XRay Report ---
XR chest 1V portable Indication: Shortness of breath. Chest one view: Comparison yesterday shows continued bilateral fluffy perihilar infiltrates are stable. Heart size remains minimally enlarged. Mediastinal contour remains somewhat obscured. Impression: No significant change. PROCEDURE INTERPRETED AT [facility] DEPARTMENT OF RADIOLOGY Final Report Signed by: Valeriano Rolle M.D.
[2016-10-16] MEDS: INDOMETHACIN 25 MG CAPSULE PO SCH ×3 (13:30→20:52)
[2016-10-16] MEDS: GABAPENTIN 100 MG CAPSULE PO SCH ×2 (13:30→20:53)
[2016-10-16] MEDS: ACETAMINOPHEN 325 MG TABLET PO PRN (18:33)
[2016-10-16] MEDS: traZODone 50 MG TABLET PO SCH (20:55)
[2016-10-17] MEDS: PIPERACILLIN/TAZOBACTAM 3,375 MG in SODIUM CHLORIDE 0.9% 100 ML IV SCH ×3 (06:00→21:16)
[2016-10-17] MEDS: PANTOPRAZOLE 40 MG TABLET PO SCH (08:21)
[2016-10-17] MEDS: GABAPENTIN 100 MG CAPSULE PO SCH ×2 (08:22→21:14)
[2016-10-17] MEDS: INDOMETHACIN 25 MG CAPSULE PO SCH ×3 (08:22→21:10)
[2016-10-17] MEDS: OMEGA 3 ACID ETHYL ESTERS 1 GM CAPSULE PO SCH ×2 (08:22→21:12)
[2016-10-17] MEDS: COLCHICINE 0.6 MG TABLET PO SCH (08:22)
[2016-10-17] MEDS: MAGNESIUM OXIDE 400 MG TABLET PO SCH ×2 (08:22→21:14)
[2016-10-17] MEDS: CAPTOPRIL 6.25 MG TABLET PO SCH ×3 (08:22→21:10)
[2016-10-17] MEDS: ALLOPURINOL 100 MG TABLET PO SCH (08:23)
[2016-10-17] MEDS: CARVEDILOL 3.125 MG TABLET PO SCH ×2 (08:23→21:13)
[2016-10-17] MEDS: amLODIPine 10 MG TABLET PO SCH (08:23)
[2016-10-17] MEDS: ASPIRIN CHEW 81 MG TABLET PO SCH (08:23)
[2016-10-17] MEDS: SERTRALINE 100 MG TABLET PO SCH (08:24)
[2016-10-17] MEDS: SPIRONOLACTONE 25 MG TABLET PO SCH ×2 (08:24→21:10)
[2016-10-17] MEDS: ENOXAPARIN 40 MG/0.4 ML SYRINGE SUBCUT SCH (08:24)
[2016-10-17] MEDS: LORazepam 1 MG TABLET PO SCH ×2 (08:24→21:12)
[2016-10-17] MEDS: cloNIDine 0.1 MG TABLET PO SCH ×2 (08:24→21:12)
[2016-10-17] MEDS: POTASSIUM CHLORIDE 20 MEQ PACK PO SCH (08:25)
[2016-10-17] MEDS: DESITIN 4OZ/NYSTATIN 15 GRAM MIXTURE PASTE TOP SCH ×2 (08:25→22:10)
[2016-10-17] MEDS ORDERED: HYDROmorphone 2 MG/1 ML VIAL IV ONE (10:34)
--- NOTE | 2016-10-17 14:21 | Hospitalist Progress Note ---
Assessment and Plan (1) Chest pain Status: Acute Assessment and plan: per cardiology service, improving, c/w meds Current Visit: Yes (2) Hypokalemia Status: Acute Assessment and plan: replaced, check Current Visit: Yes (3) Gout attack Problem details: appear clinically dx. No Joing Taping undertaken so far. Status: Acute Assessment and plan: c/w meds Current Visit: Yes (4) Hypomagnesemia Status: Resolved Assessment and plan: replace, follow Current Visit: Yes (5) HTN (hypertension) Status: Chronic Assessment and plan: c/w meds Current Visit: Yes Qualifiers: Hypertension type: essential hypertension Qualified Code(s): I10 - Essential (primary) hypertension (6) Acute renal failure Status: Acute Assessment and plan: improving, serum Cr 0.8 Current Visit: Yes (7) HEATH (generalized anxiety disorder) Status: Chronic Assessment and plan: c/w med Current Visit: Yes (8) Heart failure, diastolic, acute on chronic Status: Acute Assessment and plan: appreciate cardiology recs., c/w meds Current Visit: Yes (9) Back pain Status: Chronic Assessment and plan: prn meds, review pain med regimen Current Visit: Yes Hospitalist: Subjective Interval history: This is first encounter with this pt who was admitted 10/08/16. Pt c/o Rt foot pain not much improved with pain med. Pt denies CP or SOB or coughing or fever/chills. No N/V reporting. Exam - Constitutional Vitals: Period Temp Pulse Resp BP Sys/Painting Pulse Ox Last 24 Hr 98 F-99.7 F 73-92 16-20 139-165/56-82 89-96 Exam: Gen:a&ox3, NAD neck:no JVD, supple heart:s1s2 , rrr, no murmur lung:reduced BS lung bases, otherwise CTA, no wheezing abd: soft, NT ext:no edema, no cynosis. RLEx distally warmer to touch c/w LLEx MSK: LROM around Rt ankle w tenderness skin: warm, dry Results - Labs CBC & BMP: 10/17/16 15:05 10/17/16 15:05 Quality Measures - VTE Deep Vein Thrombosis/Pulmonary Embolism Present on Admission: No
[2016-10-17 15:14] LABS: Basophils % 0.1 % (0.0-0.8); Eosinophils # 0.1 10*3/uL (0.0-0.87); Eosinophils % 0.3 % (0.00-10.9); Hematocrit 30.3 VOL% (35.7-47.0); Hemoglobin 9.5 GM/DL (12.0-16.0); Immature Granulocytes % 0.6 %; Immature Granulocytes Absolute 0.11 #; Lymphocytes # 1.9 10*3/uL (1.4-4.0); Lymphocytes % 10.7 % (21.3-54.2); Mean Corpuscular HGB Conc 31.4 GM/DL (32-36); Mean Corpuscular Hemoglobin 32 PG (27-34); Monocytes # 1.4 10*3/uL (0.11-0.8); NRBC # 0.02 10*3/uL; Neutrophils # 14.4 10*3/uL (1.4-7.4); Neutrophils % 80.3 % (38.7-73.9); Platelet Count 386 10*3/uL (130-400); Red Blood Count 2.97 10*6/uL (3.8-5.5); Red Cell Distribution Width 13.1 % (9.3-17.3); White Blood Count 17.9 10*3/uL (4.5-13.71)
[2016-10-17 15:34] LABS: Calcium 7.8 MG/DL (8.5-10.1); Potassium 3.6 MMOL/L (3.5-5.1)
[2016-10-17] MEDS ORDERED: COLCHICINE 0.6 MG TABLET PO ONE (18:56)
[2016-10-17] MEDS: MORPHINE 2 MG/1 ML SYRINGE IV PRN (19:04)
--- NOTE | 2016-10-17 20:41 | Cardiology Progress Note ---
Keon, Marcie Morris RN, am scribing for, and in the presence of, Ryan Carpenter MD 20:32. Assessment and Plan - Time spent with patient Time spent with patient: Less than 30 minutes (1) Chest pain Status: Acute Assessment and plan: Initial assessment 10/13/16 Diagnosis would include coronary disease, GI, musculoskeletal, or stress/anxiety Plan/ recommendation : Replete the potassium magnesium, as you are doing. Treat for unstable angina for now. Aspirin 324 mg daily. Continue Lovenox. Nitropaste. EKG every morning 3. Agree with labetalol for blood pressure. TNG as needed chest pain. Echo Doppler has been ordered. I will review it tomorrow. Proton pump inhibitor. Elevate head of bed. 10/14/16-Plan/ recommendation : Chest x-ray was consistent with heart failure and pneumonia. She is on about antibiotics. She was given some IV IV Lasix. I will continue a low-dose of IV Lasix, add low-dose of Capoten, Spironolactone , and carvedilol. This could be diastolic heart failure or it could be related to her getting IV fluids in the hospital. Will watch blood pressure with these medications. Watch renal function with these medications. We will reduce IV fluids to 25 cc/h. Will give some KCl powder because she cannot take the pills. Will recheck lites, BUN,. Creatinine in the a.m. 10/15/16-plan/recommendation: Her breathing is slightly better. She feels she is having less fluid overload. Less no difficulty with the new meds. Chest x- ray is unchanged. Has low magnesium and low potassium. Was given mag sulfate 2 g IV over 2 hours and her Mag-Ox that was increased to 800 mg p.o. twice daily. I gave her 40 mEq of the powdered potassium in liquid this morning I will give her some more in the evening. Will recheck labs in the a.m. the above was discussed with the patient and her sister. They voiced understanding and agree with the plan. 10/16/16-plan/recommendations: The patient complains bitterly of her right foot gout pain. Her heart failure is getting better. Continue diuresis. Replete magnesium and potassium. Probably her pneumonia is also improving, given her less shortness breath symptoms. i saw the pt on 10/16/16 and was involved in her management. i am signing the next day. Current Visit: Yes (2) Acute renal failure Status: Acute Current Visit: Yes (3) Aspiration pneumonia Status: Acute Current Visit: Yes Qualifiers: Laterality: right (4) HEATH (generalized anxiety disorder) Status: Chronic Current Visit: Yes (5) Gout attack Problem details: appear clinically dx. No Joing Taping undertaken so far. Status: Acute Current Visit: Yes (6) HTN (hypertension) Status: Chronic Current Visit: Yes Qualifiers: Hypertension type: essential hypertension Qualified Code(s): I10 - Essential (primary) hypertension (7) Heart failure, diastolic, acute on chronic Status: Acute Current Visit: Yes (8) Hypokalemia Status: Acute Current Visit: Yes (9) Pneumonia Status: Acute Current Visit: Yes (10) Hypomagnesemia Status: Resolved Current Visit: Yes Cardiology - PN: Subj Interval history: Very talkative this morning. She says she is feeling better for the most part. No CP, but does have some slight shortness of breath "from time to time." O2 is in use. HR is in 80's, regular rhythm. BP elevated, 160/85. Hypokalemic and hypomagnesemic yesterday. IVF's with 40 meq KCL are infusing and 40 meq PO daily added to regimen. MagOx increased to 800 mg BID. Electrolytes rechecked. Main complaint today is severe "gout pain" in right foot. Lab review: K+ 3.5 Mg+ 1.7 WBC 12.9 (improved from 15.3) H/H stable 9.3 / 28.5 Exam (Progress Note) - Constitutional Vitals: Period Temp Pulse Resp BP Sys/Painting Pulse Ox Last 24 Hr 97.3 F-99.3 F 75-87 18-20 146-163/72-79 90-94 General appearance: no acute distress, over weight - Head Head exam: Present: normocephalic. Absent: contusion - Eye Eye exam: Absent: periorbital swelling Pupils: Present: MAY - ENT ENT exam: Present: normal external ear exam - Neck Neck exam: Absent: tenderness - Respiratory Respiratory exam: Present: rales (fine rales scattered throughout). Absent: rhonchi, stridor, wheezes - Cardiovascular Cardiovascular exam: Present: regular rate and rhythm. Absent: bradycardia, tachycardia - GI/Abdominal GI/Abdominal exam: Present: normal bowel sounds, soft. Absent: ascites, distended, tenderness - Extremities Exam Extremities exam: Present: edema (trace pretibial). Absent: full ROM, calf tenderness - Neurological Exam Neurological exam: Present: alert, oriented X3 - Psychiatric Psychiatric exam: Present: normal affect, normal mood. Absent: agitated, anxious - Skin Skin exam: Present: warm, dry. Absent: cyanosis, diaphoretic, rash Result/EKG - Labs CBC & BMP: 10/17/16 15:05 10/17/16 15:05 Lab Results: I have reviewed the past 24 hour labs Labs: Laboratory Results - last 24 hr 10/16/16 10/16/16 05:29 05:29 WBC 12.9 RBC 2.91 L Hgb 9.3 L Hct 28.5 L MCV 97.9 MCH 32 MCHC 32.6 RDW 13.0 Plt Count 335 D MPV 10.4 Neut % (Auto) 85.6 H Lymph % (Auto) 6.1 L [place] % (Auto) 7.6 Eos % (Auto) 0.0 Baso % (Auto) 0.1 Neut # (Auto) 11.1 H Lymph # (Auto) 0.8 L [place] # (Auto) 1.0 H Eos # (Auto) 0.0 Baso # (Auto) 0.0 Immature Gran % 0.6 Nucleated RBC % 0.0 Immature Gran # 0.08 Nucleated RBCs # 0.00 Sodium 138 Potassium 3.5 Chloride 98 Carbon Dioxide 27 Anion Gap 16.5 H BUN 22 H Creatinine 0.90 GFR Calculation 72 BUN/Creatinine Ratio 24.00 H Glucose 119 H Calculated Osmolality 278.7 Calcium 8.0 L Magnesium 1.7 L - EKG EKG results: interpreted by me Quality Measures - VTE Deep Vein Thrombosis/Pulmonary Embolism Present on Admission: No I, Ryan Carpenter MD, personally performed the services described in this documentation, ascribed by Marcie Morris RN in my presence, and it is both accurate and complete 033 .
--- NOTE | 2016-10-17 20:47 | Cardiology Progress Note ---
Assessment and Plan (1) Chest pain Status: Acute Assessment and plan: Initial assessment 10/13/16 Diagnosis would include coronary disease, GI, musculoskeletal, or stress/anxiety Plan/ recommendation : Replete the potassium magnesium, as you are doing. Treat for unstable angina for now. Aspirin 324 mg daily. Continue Lovenox. Nitropaste. EKG every morning 3. Agree with labetalol for blood pressure. TNG as needed chest pain. Echo Doppler has been ordered. I will review it tomorrow. Proton pump inhibitor. Elevate head of bed. 10/14/16-Plan/ recommendation : Chest x-ray was consistent with heart failure and pneumonia. She is on about antibiotics. She was given some IV IV Lasix. I will continue a low-dose of IV Lasix, add low-dose of Capoten, Spironolactone , and carvedilol. This could be diastolic heart failure or it could be related to her getting IV fluids in the hospital. Will watch blood pressure with these medications. Watch renal function with these medications. We will reduce IV fluids to 25 cc/h. Will give some KCl powder because she cannot take the pills. Will recheck lites, BUN,. Creatinine in the a.m. 10/15/16-plan/recommendation: Her breathing is slightly better. She feels she is having less fluid overload. Less no difficulty with the new meds. Chest x- ray is unchanged. Has low magnesium and low potassium. Was given mag sulfate 2 g IV over 2 hours and her Mag-Ox that was increased to 800 mg p.o. twice daily. I gave her 40 mEq of the powdered potassium in liquid this morning I will give her some more in the evening. Will recheck labs in the a.m. the above was discussed with the patient and her sister. They voiced understanding and agree with the plan. 10/16/16-plan/recommendations: The patient complains bitterly of her right foot gout pain. Her heart failure is getting better. Continue diuresis. Replete magnesium and potassium. Probably her pneumonia is also improving, given her less shortness breath symptoms.. 10/17/16--Plan/recommendation: Heart failure is better. Electrolytes are better. Continue support. She is asked about using NSAIDs for her ankle/gout. I am worried that it may result in recurrence of her renal failure. We'll defer to the hospitalist is what best to do. She states she is miserable and is bitterly complaining of the ankle/foot pain. Current Visit: Yes (2) Acute renal failure Status: Acute Current Visit: Yes (3) Aspiration pneumonia Status: Acute Current Visit: Yes Qualifiers: Laterality: right (4) HEATH (generalized anxiety disorder) Status: Chronic Current Visit: Yes (5) Gout attack Problem details: appear clinically dx. No Joing Taping undertaken so far. Status: Acute Current Visit: Yes (6) HTN (hypertension) Status: Chronic Current Visit: Yes Qualifiers: Hypertension type: essential hypertension Qualified Code(s): I10 - Essential (primary) hypertension (7) Heart failure, diastolic, acute on chronic Status: Acute Current Visit: Yes (8) Hypokalemia Status: Acute Current Visit: Yes (9) Pneumonia Status: Acute Current Visit: Yes (10) Hypomagnesemia Status: Resolved Current Visit: Yes Cardiology - PN: Subj Interval history: no cp or sob worsenign; complains bitterly of rt foot pain; Exam (Progress Note) - Constitutional Vitals: Period Temp Pulse Resp BP Sys/Painting Pulse Ox Last 24 Hr 98 F-99.1 F 73-82 15-20 139-165/56-78 91-96 Exam: No JVD or neck bruit HEENT: PERRLA Cardiac: Regular rhythm and rate with normal s1/S2. Lungs: Clear to auscultation Abdomen: Without organomegaly ors Spine/extremities: No clubbing, cyanosis, or edema. Neuro: nonfocal Psych: no vegetative signs of depression or anxiety lower extremity pulses are 3-4 + Result/EKG - Labs CBC & BMP: 10/17/16 15:05 10/17/16 15:05 Lab Results: I have reviewed the past 24 hour labs Labs: Laboratory Results - last 24 hr 10/17/16 10/17/16 15:05 15:05 WBC 17.9 H D RBC 2.97 L Hgb 9.5 L Hct 30.3 L MCV 102.0 MCH 32 MCHC 31.4 L RDW 13.1 Plt Count 386 MPV 10.0 Neut % (Auto) 80.3 H Lymph % (Auto) 10.7 L [place] % (Auto) 8.0 Eos % (Auto) 0.3 Baso % (Auto) 0.1 Neut # (Auto) 14.4 H Lymph # (Auto) 1.9 [place] # (Auto) 1.4 H Eos # (Auto) 0.1 Baso # (Auto) 0.0 Immature Gran % 0.6 Nucleated RBC % 0.1 Immature Gran # 0.11 Nucleated RBCs # 0.02 Sodium 136 Potassium 3.6 Chloride 99 Carbon Dioxide 26 Anion Gap 14.6 BUN 28 H Creatinine 1.00 GFR Calculation 64 BUN/Creatinine Ratio 28.00 H Glucose 102 Calculated Osmolality 277.0 Calcium 7.8 L Quality Measures - VTE Deep Vein Thrombosis/Pulmonary Embolism Present on Admission: No
[2016-10-17] MEDS: traZODone 50 MG TABLET PO SCH (21:13)
[2016-10-17] MEDS: ACETAMINOPHEN 325 MG TABLET PO PRN (21:20)
[2016-10-18] MEDS: PIPERACILLIN/TAZOBACTAM 3,375 MG in SODIUM CHLORIDE 0.9% 100 ML IV SCH ×3 (05:27→21:46)
[2016-10-18 05:48] LABS: Eosinophils # 0.3 10*3/uL (0.0-0.87); Eosinophils % 2.6 % (0.00-10.9); Hematocrit 28.1 VOL% (35.7-47.0); Hemoglobin 9.1 GM/DL (12.0-16.0); Immature Granulocytes % 0.4 %; Immature Granulocytes Absolute 0.04 #; Lymphocytes # 1.5 10*3/uL (1.4-4.0); Lymphocytes % 13.9 % (21.3-54.2); Mean Corpuscular HGB Conc 32.4 GM/DL (32-36); Mean Corpuscular Hemoglobin 31 PG (27-34); Mean Corpuscular Volume 96.6 FL (87-102); Mean Platelet Volume 9.9 FL (9.6-12.0); Monocytes # 1.1 10*3/uL (0.11-0.8); Monocytes % 10.3 % (1.7-12.7); Neutrophils # 7.9 10*3/uL (1.4-7.4); Neutrophils % 72.8 % (38.7-73.9); Platelet Count 391 10*3/uL (130-400); Red Blood Count 2.91 10*6/uL (3.8-5.5); Red Cell Distribution Width 12.9 % (9.3-17.3); White Blood Count 10.8 10*3/uL (4.5-13.71)
[2016-10-18] MEDS: MORPHINE 2 MG/1 ML SYRINGE IV PRN ×3 (06:02→21:42)
[2016-10-18 06:12] LABS: Calcium 8.1 MG/DL (8.5-10.1); Osmolality,Calculated 281.4 MOS/KG (273-304); Potassium 3.7 MMOL/L (3.5-5.1)
[2016-10-18] MEDS: INDOMETHACIN 25 MG CAPSULE PO SCH ×3 (08:23→21:39)
[2016-10-18] MEDS: POTASSIUM CHLORIDE 20 MEQ PACK PO SCH (08:23)
[2016-10-18] MEDS: CAPTOPRIL 6.25 MG TABLET PO SCH ×3 (08:23→21:39)
[2016-10-18] MEDS: ENOXAPARIN 40 MG/0.4 ML SYRINGE SUBCUT SCH (08:23)
[2016-10-18] MEDS: amLODIPine 10 MG TABLET PO SCH (08:23)
[2016-10-18] MEDS: GABAPENTIN 100 MG CAPSULE PO SCH ×2 (08:24→21:38)
[2016-10-18] MEDS: COLCHICINE 0.6 MG TABLET PO SCH (08:24)
[2016-10-18] MEDS: SPIRONOLACTONE 25 MG TABLET PO SCH ×2 (08:24→21:38)
[2016-10-18] MEDS: cloNIDine 0.1 MG TABLET PO SCH ×2 (08:24→21:38)
[2016-10-18] MEDS: MAGNESIUM OXIDE 400 MG TABLET PO SCH ×2 (08:24→21:39)
[2016-10-18] MEDS: OMEGA 3 ACID ETHYL ESTERS 1 GM CAPSULE PO SCH ×2 (08:24→21:38)
[2016-10-18] MEDS: LORazepam 1 MG TABLET PO SCH (08:25)
[2016-10-18] MEDS: CARVEDILOL 3.125 MG TABLET PO SCH ×2 (08:25→21:39)
[2016-10-18] MEDS: SERTRALINE 100 MG TABLET PO SCH (08:25)
[2016-10-18] MEDS: ASPIRIN CHEW 81 MG TABLET PO SCH (08:25)
[2016-10-18] MEDS: PANTOPRAZOLE 40 MG TABLET PO SCH (08:25)
[2016-10-18] MEDS: DESITIN 4OZ/NYSTATIN 15 GRAM MIXTURE PASTE TOP SCH ×2 (08:26→23:08)
--- NOTE | 2016-10-18 15:35 | Hospitalist Progress Note ---
Assessment and Plan (1) Chest pain Status: Acute Assessment and plan: per cardiology service, improving, c/w meds Current Visit: Yes (2) Hypokalemia Status: Acute Assessment and plan: replaced Current Visit: Yes (3) Gout attack Problem details: clinically dx ds ago. suspected. No Joing Taping undertaken so far. Xray showed no evidence of joiont effusion. Status: Acute Assessment and plan: c/w meds Current Visit: Yes (4) Hypomagnesemia Status: Resolved Assessment and plan: replaced Current Visit: Yes (5) HTN (hypertension) Status: Chronic Assessment and plan: c/w meds Current Visit: Yes Qualifiers: Hypertension type: essential hypertension Qualified Code(s): I10 - Essential (primary) hypertension (6) Acute renal failure Status: Acute Assessment and plan: improved, serum Cr 0.8 Current Visit: Yes (7) HEATH (generalized anxiety disorder) Status: Chronic Assessment and plan: c/w med Current Visit: Yes (8) Heart failure, diastolic, acute on chronic Status: Acute Assessment and plan: appreciate cardiology recs., c/w meds Current Visit: Yes (9) Depression Status: Acute Assessment and plan: c/w med Current Visit: Yes (10) Back pain Status: Chronic Assessment and plan: c/w meds Current Visit: Yes Hospitalist: Subjective Interval history: Pt complaining of right foot and ankle pain and she stated that morphine helped last night. When asked if she feels depressed patient started to tear talking about that her a few weeks ago and she feels very sad. Patient denies suicidal or homicidal ideation. Patient denies chest pain or SOB or nausea or vomiting or fever or chills or palpitation. Exam - Constitutional Vitals: Period Temp Pulse Resp BP Sys/Painting Pulse Ox Last 24 Hr 97.5 F-100.0 F 64-80 15-18 151-191/68-90 91-97 Exam: Gen:a&ox3, NAD neck:no JVD, supple heart:s1s2 , rrr, no murmur lung:reduced BS lung bases, otherwise CTA, no wheezing abd: soft, NT ext:no edema, no cynosis. MSK: active not passive LROM around Rt ankle skin: warm, dry Results - Labs CBC & BMP: 10/18/16 05:28 10/18/16 05:28 Quality Measures - VTE Deep Vein Thrombosis/Pulmonary Embolism Present on Admission: No
[2016-10-18] MEDS: MELATONIN 3 MG TABLET PO PRN (21:39)
--- NOTE | 2016-10-18 22:37 | Cardiology Progress Note ---
Assessment and Plan (1) Chest pain Status: Acute Assessment and plan: Initial assessment 10/13/16 Diagnosis would include coronary disease, GI, musculoskeletal, or stress/anxiety Plan/ recommendation : Replete the potassium magnesium, as you are doing. Treat for unstable angina for now. Aspirin 324 mg daily. Continue Lovenox. Nitropaste. EKG every morning 3. Agree with labetalol for blood pressure. TNG as needed chest pain. Echo Doppler has been ordered. I will review it tomorrow. Proton pump inhibitor. Elevate head of bed. 10/14/16-Plan/ recommendation : Chest x-ray was consistent with heart failure and pneumonia. She is on about antibiotics. She was given some IV IV Lasix. I will continue a low-dose of IV Lasix, add low-dose of Capoten, Spironolactone , and carvedilol. This could be diastolic heart failure or it could be related to her getting IV fluids in the hospital. Will watch blood pressure with these medications. Watch renal function with these medications. We will reduce IV fluids to 25 cc/h. Will give some KCl powder because she cannot take the pills. Will recheck lites, BUN,. Creatinine in the a.m. 10/15/16-plan/recommendation: Her breathing is slightly better. She feels she is having less fluid overload. Less no difficulty with the new meds. Chest x- ray is unchanged. Has low magnesium and low potassium. Was given mag sulfate 2 g IV over 2 hours and her Mag-Ox that was increased to 800 mg p.o. twice daily. I gave her 40 mEq of the powdered potassium in liquid this morning I will give her some more in the evening. Will recheck labs in the a.m. the above was discussed with the patient and her sister. They voiced understanding and agree with the plan. 10/16/16-plan/recommendations: The patient complains bitterly of her right foot gout pain. Her heart failure is getting better. Continue diuresis. Replete magnesium and potassium. Probably her pneumonia is also improving, given her less shortness breath symptoms.. 10/17/16--Plan/recommendation: Heart failure is better. Electrolytes are better. Continue support. She is asked about using NSAIDs for her ankle/gout. I am worried that it may result in recurrence of her renal failure. We'll defer to the hospitalist is what best to do. She states she is miserable and is bitterly complaining of the ankle/foot pain. 10/18/16-plan/recommendation: Her diastolic heart failure seems to be under fairly good control. Will continue current meds. Her pneumonia probably is better. Her right foot pain, presumably due to gout, continues. I discussed with her that she needs to further encourage the hospitalist to do what pain medicines are needed to help the pain. Another option might be to get the pain clinic involved. Another thought I had was to consider using Dilaudid instead of morphine. It may help better. Current Visit: Yes (2) Acute renal failure Status: Acute Current Visit: Yes (3) Aspiration pneumonia Status: Acute Current Visit: Yes Qualifiers: Laterality: right (4) HEATH (generalized anxiety disorder) Status: Chronic Current Visit: Yes (5) Gout attack Problem details: clinically dx ds ago. suspected. No Joing Taping undertaken so far. Xray showed no evidence of joiont effusion. Status: Acute Current Visit: Yes (6) HTN (hypertension) Status: Chronic Current Visit: Yes Qualifiers: Hypertension type: essential hypertension Qualified Code(s): I10 - Essential (primary) hypertension (7) Heart failure, diastolic, acute on chronic Status: Acute Current Visit: Yes (8) Hypokalemia Status: Acute Current Visit: Yes (9) Pneumonia Status: Acute Current Visit: Yes (10) Hypomagnesemia Status: Resolved Current Visit: Yes Cardiology - PN: Subj Interval history: No chest pain. She continues to complain bitterly of the right foot pain. She says the morphine has not helped much. She is asking for the strongest pain medicine in the hospital to see if it would help. Exam (Progress Note) - Constitutional Vitals: Period Temp Pulse Resp BP Sys/Painting Pulse Ox Last 24 Hr 97.5 F-99.6 F 64-79 17-18 151-191/68-90 96-99 Exam: No JVD or neck bruit HEENT: PERRLA Cardiac: Regular rhythm and rate with normal s1/S2. Lungs: Clear to auscultation Abdomen: Without organomegaly ors Spine/extremities: No clubbing, cyanosis, or edema. Neuro: nonfocal Psych: no vegetative signs of depression or anxiety lower extremity pulses are 3-4 + Result/EKG - Labs CBC & BMP: 10/18/16 05:28 10/18/16 05:28 Lab Results: I have reviewed the past 24 hour labs Labs: Laboratory Results - last 24 hr 10/18/16 10/18/16 05:28 05:28 WBC 10.8 D RBC 2.91 L Hgb 9.1 L Hct 28.1 L MCV 96.6 MCH 31 MCHC 32.4 RDW 12.9 Plt Count 391 MPV 9.9 Neut % (Auto) 72.8 Lymph % (Auto) 13.9 L [place] % (Auto) 10.3 Eos % (Auto) 2.6 Baso % (Auto) 0.0 Neut # (Auto) 7.9 H Lymph # (Auto) 1.5 [place] # (Auto) 1.1 H Eos # (Auto) 0.3 Baso # (Auto) 0.0 Immature Gran % 0.4 Nucleated RBC % 0.0 Immature Gran # 0.04 Nucleated RBCs # 0.00 Sodium 140 Potassium 3.7 Chloride 103 Carbon Dioxide 28 Anion Gap 12.7 BUN 25 H Creatinine 0.90 GFR Calculation 72 BUN/Creatinine Ratio 27.00 H Glucose 80 Calculated Osmolality 281.4 Calcium 8.1 L - EKG EKG results: interpreted by mn Quality Measures - VTE Deep Vein Thrombosis/Pulmonary Embolism Present on Admission: No
[2016-10-19] MEDS: PIPERACILLIN/TAZOBACTAM 3,375 MG in SODIUM CHLORIDE 0.9% 100 ML IV SCH (05:05)
[2016-10-19] MEDS: MORPHINE 2 MG/1 ML SYRINGE IV PRN ×2 (07:50→13:59)
[2016-10-19] MEDS: SPIRONOLACTONE 25 MG TABLET PO SCH ×2 (09:18→20:26)
[2016-10-19] MEDS: COLCHICINE 0.6 MG TABLET PO SCH (09:19)
[2016-10-19] MEDS: ASPIRIN CHEW 81 MG TABLET PO SCH (09:19)
[2016-10-19] MEDS: GABAPENTIN 100 MG CAPSULE PO SCH (09:19)
[2016-10-19] MEDS: PANTOPRAZOLE 40 MG TABLET PO SCH (09:20)
[2016-10-19] MEDS: MAGNESIUM OXIDE 400 MG TABLET PO SCH ×2 (09:20→20:26)
[2016-10-19] MEDS: ENOXAPARIN 40 MG/0.4 ML SYRINGE SUBCUT SCH (09:20)
[2016-10-19] MEDS: CARVEDILOL 3.125 MG TABLET PO SCH ×2 (09:20→20:27)
[2016-10-19] MEDS: cloNIDine 0.1 MG TABLET PO SCH ×2 (09:20→20:26)
[2016-10-19] MEDS: OMEGA 3 ACID ETHYL ESTERS 1 GM CAPSULE PO SCH ×2 (09:20→20:26)
[2016-10-19] MEDS: amLODIPine 10 MG TABLET PO SCH (09:20)
[2016-10-19] MEDS: SERTRALINE 100 MG TABLET PO SCH (09:21)
[2016-10-19] MEDS: CAPTOPRIL 6.25 MG TABLET PO SCH ×3 (09:21→20:53)
[2016-10-19] MEDS: DESITIN 4OZ/NYSTATIN 15 GRAM MIXTURE PASTE TOP SCH ×2 (09:21→20:53)
[2016-10-19] MEDS: INDOMETHACIN 25 MG CAPSULE PO SCH ×3 (09:21→20:53)
[2016-10-19] MEDS: POTASSIUM CHLORIDE 20 MEQ PACK PO SCH (09:21)
--- NOTE | 2016-10-19 10:50 | Cardiology Progress Note ---
Keon, Marcie Morris RN, am scribing for, and in the presence of, Mal Corona MD 10:50. Assessment and Plan - Time spent with patient Time spent with patient: Less than 30 minutes (1) Heart failure, diastolic, acute on chronic Status: Acute Current Visit: Yes (2) HTN (hypertension) Status: Chronic Assessment and plan: Currently tx with KAMALA inhibitor, beta luz, calcium channel luz. -PRN hydralazine -PRN labetalol Current Visit: Yes Qualifiers: Hypertension type: essential hypertension Qualified Code(s): I10 - Essential (primary) hypertension (3) Chest pain Status: Acute Assessment and plan: No further chest pain at this time. Current Visit: Yes (4) Acute renal failure Status: Acute Assessment and plan: Continues to improve. BUN & creatinine 25 & 0.9 on 10/18. Current Visit: Yes (5) Aspiration pneumonia Status: Acute Assessment and plan: Continues to improve per clinical findings. Current Visit: Yes Qualifiers: Laterality: right (6) HEATH (generalized anxiety disorder) Status: Chronic Current Visit: Yes (7) Gout attack Problem details: clinically dx ds ago. suspected. No Joing Taping undertaken so far. Xray showed no evidence of joiont effusion. Status: Acute Assessment and plan: I will ask the pain doctors to reevaluate and consider nerve block. Current Visit: Yes (8) Hypokalemia Status: Acute Current Visit: Yes (9) Pneumonia Status: Acute Current Visit: Yes (10) Hypomagnesemia Status: Resolved Current Visit: Yes Cardiology - PN: Subj Interval history: Resting quietly this AM. Rouses to verbal stimuli. Denies CP, SOB, palpitation, presyncope, cough. Continues to c/o unrelenting right ankle pain. Currently being treated for gout. Sed rate 120 today. No further labs available for review this AM. Sinus rhythm per tele monitoring with HR 70's. Hypertensive with SBP 145-160 mmHg. she is very tearful this morning complaining bitterly of her right foot pain. She says that she is going to kill herself if she can get pain relief. I don't know whether there is any kind nerve block be done to give her relief but I will reconsult the pain doctors and see if there is anything we can be done. Cardiac-rios she is stable. Exam (Progress Note) - Constitutional Vitals: Period Temp Pulse Resp BP Sys/Painting Pulse Ox Last 24 Hr 97.5 F-99.6 F 64-79 16-18 156-191/68-90 95-99 Exam: General appearance: no acute distress, over weight - Head Head exam: Present: normocephalic. Absent: contusion - Eye Eye exam: Absent: periorbital swelling Pupils: Present: MAY - ENT ENT exam: Present: normal external ear exam - Neck Neck exam: Absent: tenderness - Respiratory Respiratory exam: Present: rales (fine rales scattered throughout). Absent: rhonchi, stridor, wheezes - Cardiovascular Cardiovascular exam: Present: regular rate and rhythm. Absent: bradycardia, tachycardia - GI/Abdominal GI/Abdominal exam: Present: normal bowel sounds, soft. Absent: ascites, distended, tenderness - Extremities Exam Extremities exam: Present: edema (trace pretibial). Absent: full ROM, calf tenderness - Neurological Exam Neurological exam: Present: alert, oriented X3 - Psychiatric Psychiatric exam: Present: normal affect, normal mood. Absent: agitated, anxious - Skin Skin exam: Present: warm, dry. Absent: cyanosis, diaphoretic, rash Result/EKG - Labs CBC & BMP: 10/18/16 05:28 10/18/16 05:28 Lab Results: I have reviewed the past 24 hour labs Labs: Laboratory Results - last 24 hr 10/19/16 04:36 ESR Westergren 120 H - EKG EKG results: interpreted by me EKG shows: sinus rhythm (pulse 70's, no ectopy) Quality Measures - VTE Deep Vein Thrombosis/Pulmonary Embolism Present on Admission: No I, Mal Corona MD, personally performed the services described in this documentation, ascribed by Marcie Morris RN in my presence, and it is both accurate and complete .
--- NOTE | 2016-10-19 12:25 | Hospitalist Progress Note ---
Assessment and Plan (1) Right foot pain Status: Acute Assessment and plan: dx clinically on admission as gout and pt has been on antigout meds. NO sure if gouts as joint was not tapped and pt has no h/o gout. c/w meds for now. PT/OT for debility and deconditioning Current Visit: Yes (2) Chest pain Status: Acute Assessment and plan: per cardiology service, improving, c/w meds Current Visit: Yes (3) Hypokalemia Status: Acute Assessment and plan: replaced Current Visit: Yes (4) Hypomagnesemia Status: Resolved Assessment and plan: replaced Current Visit: Yes (5) Acute renal failure Status: Acute Assessment and plan: improved, serum Cr 0.8 Current Visit: Yes (6) Heart failure, diastolic, acute on chronic Status: Acute Assessment and plan: appreciate cardiology recs., c/w meds Current Visit: Yes (7) Depression Status: Acute Assessment and plan: c/w med Current Visit: Yes (8) Back pain Status: Chronic Assessment and plan: c/w pain meds Current Visit: Yes (9) HTN (hypertension) Status: Chronic Assessment and plan: c/w meds Current Visit: Yes Qualifiers: Hypertension type: essential hypertension Qualified Code(s): I10 - Essential (primary) hypertension (10) HEATH (generalized anxiety disorder) Status: Chronic Assessment and plan: c/w med Current Visit: Yes Hospitalist: Subjective Interval history: Patient c/o pain in the right lower extremity stating not fully controlled with pain medication and asked if she can get ibuprofen. Patient tearing at times. Patient's daughter visiting. Patient denies chest pain or SOB or nausea or vomiting or abdominal pain or chills or fever or palpitation. Patient denies homicidal or suicidal ideation. Exam - Constitutional Vitals: Period Temp Pulse Resp BP Sys/Painting Pulse Ox Last 24 Hr 97.6 F-98.7 F 64-78 16-18 156-180/70-84 95-99 Exam: Gen:a&ox3, NAD neck:no JVD, supple heart:s1s2 , rrr, no murmur lung:reduced BS lung bases, otherwise CTA, no wheezing abd: soft, NT ext:no edema, no cynosis. MSK: active not passive LROM around Rt ankle skin: warm, dry psych: flat affect, tearing at times Results - Labs CBC & BMP: 10/18/16 05:28 10/18/16 05:28 Quality Measures - VTE Deep Vein Thrombosis/Pulmonary Embolism Present on Admission: No
[2016-10-19 13:21] LABS: Blood Urea Nitrogen 16 MG/DL (7-18); Calcium 7.8 MG/DL (8.5-10.1); Glucose 107 MG/DL (74-106); Osmolality,Calculated 277.5 MOS/KG (273-304); Potassium 3.8 MMOL/L (3.5-5.1); Rheumatoid Factor < 15 IU/ML (<15); Sodium 139 MMOL/L (136-145)
--- NOTE | 2016-10-19 16:21 | Pain Management Consult Note ---
Assessment and Plan (1) Right foot pain Status: Acute Assessment and plan: I don't think a block would help I will replace her morphine with the Dilaudid and had oral Percocet to I will also increase her Neurontin to 304 times per day Current Visit: Yes History of Present Illness Chief complaint: right foot pain History of present illness: Ms. Lanier is a 61 year old female Patient is complaining of intractable pain in the right foot mainly in the right great toe area. Is some question whether she has out or not. Patient has had long-standing issues related to depression 2 and she has mentioned something about harming herself but I do not think at this time that she has any suicidal plan or think there is a specific injection that can be offered for this pain but I will adjust her pain medications Home Medications Medication Instructions Recorded Confirmed Type Lisinopril/Hctz 20-12.5 [Prinzide 1 tablet PO DAILY 10/08/16 10/08/16 History 20-12.5] [place]-3 Fatty Acids [Fish Oil] 1,000 mg PO BID 10/08/16 10/08/16 History Omeprazole [Prilosec] 20 mg PO DAILY 10/08/16 10/08/16 History Sertraline [Zoloft] 100 mg PO DAILY 10/08/16 10/08/16 History Allergies Allergy/AdvReac Type Severity Reaction Status Date / Time No Known Allergies Allergy Unverified 10/08/16 19:26 Medical,Surgical,& Family Hx - Medical History Cardio: History of: Hypertension Psychological: History of: Anxiety Disorders Rheumatology: History of;: Gout (right foot) Musculoskeletal: History of: Back/Neck Problems - Surgical History HEENT Surgeries: Surgical HX of: Tonsilectomy & Adenoidectomy Reproductive Surgeries: Surgical HX of;: Section, Tubal Ligation Orthopedic Surgeries: Surgical HX of;: Orthopedic Surgery (Broken left leg repair) - Family History Family History: Reports;: Family Heart Disease (father and brother), Family Hypertension (mother father and brother), Family Psychiatric Problems (mother with anxiety and depression) Denies;: Family Anesthesia Reaction, Family Cancer, Family Diabetes, Family Hematology, Family Stroke, Additional Family History - Social History Smoking Status: Former smoker (states she quit 2-3 weeks ago) Frequency of Alcohol Use: Occasionally Type of Drug Use: None Quality Measures - VTE Deep Vein Thrombosis/Pulmonary Embolism Present on Admission: No 12 point system: reviewed and no additional remarkable complaints except as stated - Constitutional Constitutional: Present: as per HPI - EENT Nose, mouth and throat: Present: as per HPI - Cardiovascular Cardiovascular: Present: as per HPI - Gastrointestinal Gastrointestinal: Present: as per HPI - Genitourinary Genitourinary: Present: as per HPI - Musculoskeletal Musculoskeletal: Present: other (right foot pain) - Neurological Neurological: Present: abnormal gait - Endocrine Endocrine: Present: as per HPI Hematologic/Lymphatic: Present: as per HPI Exam - Constitutional Vitals: Period Temp Pulse Resp BP Sys/Painting Pulse Ox Last 24 Hr 97.6 F-98.7 F 64-78 16-18 157-180/73-84 95-98 General appearance: normal weight, mild distress - Head Head exam: Present: normal inspection - Eye Eye exam: Present: EOMI Pupils: Present: MAY - ENT ENT exam: Present: normal exam Ear exam: Present: intact Mouth exam: Present: normal external inspection - Neck Neck exam: Present: normal inspection - Respiratory Respiratory exam: Present: clear to auscultation bilaterally - Cardiovascular Cardiovascular exam: Present: RRR - GI/Abdominal GI/Abdominal exam: Present: normal bowel sounds - Expanded Right Lower Hip exam: Present: normal inspection Upper Leg exam: Present: normal inspection Knee exam: Present: normal inspection Lower leg exam: Present: normal inspection Ankle exam: Present: normal inspection Foot/Toe exam: Present: tenderness (right great toe) - Back Exam Back exam: Present: normal inspection - Neurological Exam Neurological exam: Present: alert, abnormal gait Results - Labs CBC & BMP: 10/18/16 05:28 10/19/16 12:39 Lab Results: I have reviewed the past 24 hour labs
[2016-10-19] MEDS: oxyCODONE/ACETAMINOPHEN 5-325 MG TABLET PO PRN (17:11)
[2016-10-19] MEDS: SODIUM CHLOR 0.9% KCL 40 MEQ 40 MEQ/1,000 ML BAG IV SCH (20:24)
[2016-10-19] MEDS: DOCUSATE SODIUM 100 MG CAPSULE PO PRN (20:26)
[2016-10-19] MEDS: GABAPENTIN 300 MG CAPSULE PO SCH (20:26)
[2016-10-19] MEDS: HYDROmorphone 2 MG/1 ML VIAL SUBCUT PRN (20:27)
[2016-10-20] MEDS: HYDROmorphone 2 MG/1 ML VIAL SUBCUT PRN ×3 (02:41→20:17)
--- NOTE | 2016-10-20 06:18 | Pain Management Progress Note ---
Assessment and Plan (1) Right foot pain Status: Acute Assessment and plan: I don't think a block would help I will replace her morphine with the Dilaudid and had oral Percocet to I will also increase her Neurontin to 304 times per day 10/20 I will add a 25 g an hour Duragesic patch to see if that can give her some sustained pain relief Current Visit: Yes Pain - Subjective Interval history: Patient reports that the right foot is still bothering her she seems depressed and crying she attributes to stress to her pain. I'm going to add a Duragesic patch to see if that would help reduce her pain. Exam - Constitutional Vitals: Period Temp Pulse Resp BP Sys/Painting Pulse Ox Last 24 Hr 96.5 F-98.6 F 64-78 16-18 145-180/65-84 90-98 General appearance: mild distress - Head Head exam: Present: normal inspection - Eye Eye exam: Present: EOMI Pupils: Present: MAY - ENT ENT exam: Present: normal exam Ear exam: Present: intact Mouth exam: Present: normal external inspection - Neck Neck exam: Present: normal inspection - Respiratory Respiratory exam: Present: clear to auscultation bilaterally - Cardiovascular Cardiovascular exam: Present: RRR - GI/Abdominal GI/Abdominal exam: Present: normal bowel sounds - Expanded Right Lower Upper Leg exam: Present: normal inspection Knee exam: Present: normal inspection Lower leg exam: Present: normal inspection Ankle exam: Present: normal inspection Foot/Toe exam: Present: tenderness Neuro vascular tendon exam: Present: no vascular compromise Gait: Present: not tested/not observed - Back Exam Back exam: Present: normal inspection - Neurological Exam Neurological exam: Present: alert Results - Labs CBC & BMP: 10/18/16 05:28 10/19/16 12:39 Lab Results: I have reviewed the past 24 hour labs Quality Measures - VTE Deep Vein Thrombosis/Pulmonary Embolism Present on Admission: No
[2016-10-20 06:35] LABS: Basophils # 0.1 10*3/uL (0.0-0.2); Basophils % 0.6 % (0.0-0.8); Eosinophils # 1.8 10*3/uL (0.0-0.87); Eosinophils % 12.3 % (0.00-10.9); Hematocrit 31.1 VOL% (35.7-47.0); Hemoglobin 9.8 GM/DL (12.0-16.0); Immature Granulocytes % 0.5 %; Immature Granulocytes Absolute 0.07 #; Lymphocytes # 1.3 10*3/uL (1.4-4.0); Mean Corpuscular HGB Conc 31.5 GM/DL (32-36); Mean Corpuscular Hemoglobin 32 PG (27-34); Mean Platelet Volume 9.6 FL (9.6-12.0); Monocytes # 1.2 10*3/uL (0.11-0.8); Monocytes % 8.6 % (1.7-12.7); Neutrophils # 9.8 10*3/uL (1.4-7.4); Platelet Count 431 10*3/uL (130-400); Red Blood Count 3.11 10*6/uL (3.8-5.5); Red Cell Distribution Width 13.1 % (9.3-17.3); White Blood Count 14.2 10*3/uL (4.5-13.71)
[2016-10-20 07:02] LABS: Calcium 8.2 MG/DL (8.5-10.1); Eosinophils 10 % (0-10); Hypochromasia 1+; Lymphocytes 5 % (20-55); Osmolality,Calculated 278.4 MOS/KG (273-304); Potassium 4.4 MMOL/L (3.5-5.1); Segmented Neutrophils 79 % (50-85); Total Cells Counted 100
[2016-10-20 07:03] LABS: Platelet Estimate Increased
[2016-10-20] MEDS: GABAPENTIN 300 MG CAPSULE PO SCH ×3 (08:31→20:17)
[2016-10-20] MEDS: ASPIRIN CHEW 81 MG TABLET PO SCH (08:32)
[2016-10-20] MEDS: OMEGA 3 ACID ETHYL ESTERS 1 GM CAPSULE PO SCH ×2 (08:33→20:16)
[2016-10-20] MEDS: cloNIDine 0.1 MG TABLET PO SCH ×2 (08:33→20:16)
[2016-10-20] MEDS: MAGNESIUM OXIDE 400 MG TABLET PO SCH ×2 (08:34→20:16)
[2016-10-20] MEDS: COLCHICINE 0.6 MG TABLET PO SCH (08:34)
[2016-10-20] MEDS: CAPTOPRIL 6.25 MG TABLET PO SCH ×3 (08:34→20:16)
[2016-10-20] MEDS: amLODIPine 10 MG TABLET PO SCH (08:34)
[2016-10-20] MEDS: SERTRALINE 100 MG TABLET PO SCH (08:35)
[2016-10-20] MEDS: CARVEDILOL 3.125 MG TABLET PO SCH ×2 (08:35→20:17)
[2016-10-20] MEDS: INDOMETHACIN 25 MG CAPSULE PO SCH ×3 (08:35→20:16)
[2016-10-20] MEDS: PANTOPRAZOLE 40 MG TABLET PO SCH (08:36)
[2016-10-20] MEDS: SPIRONOLACTONE 25 MG TABLET PO SCH ×2 (08:36→20:16)
[2016-10-20] MEDS: fentaNYL 25 MCG/HR PATCH TRANSDERM SCH (08:36)
[2016-10-20] MEDS: ENOXAPARIN 40 MG/0.4 ML SYRINGE SUBCUT SCH (08:38)
[2016-10-20] MEDS: POTASSIUM CHLORIDE 20 MEQ PACK PO SCH (08:39)
[2016-10-20] MEDS: DESITIN 4OZ/NYSTATIN 15 GRAM MIXTURE PASTE TOP SCH ×2 (08:40→22:21)
[2016-10-20] MEDS: oxyCODONE/ACETAMINOPHEN 5-325 MG TABLET PO PRN (13:24)
--- NOTE | 2016-10-20 16:52 | Cardiology Progress Note ---
Arturo Herbert Vanessa RN, am scribing for, and in the presence of, Mal Corona MD 16:52. Assessment and Plan - Time spent with patient Time spent with patient: Less than 30 minutes (1) Right foot pain Status: Acute Assessment and plan: Appreciate Dr. Olsen's assistance. Current Visit: Yes (2) Heart failure, diastolic, acute on chronic Status: Acute Current Visit: Yes (3) HTN (hypertension) Status: Chronic Assessment and plan: Currently tx with KAMALA inhibitor, beta luz, calcium channel luz. -PRN hydralazine -PRN labetalol Current Visit: Yes Qualifiers: Hypertension type: essential hypertension Qualified Code(s): I10 - Essential (primary) hypertension (4) Chest pain Status: Resolved Assessment and plan: No further chest pain at this time. Current Visit: Yes (5) Acute renal failure Status: Resolved Assessment and plan: Continues to improve. BUN & creatinine 25 & 0.9 on 10/18. Current Visit: Yes (6) Aspiration pneumonia Status: Acute Assessment and plan: Continues to improve per clinical findings. Current Visit: Yes Qualifiers: Laterality: right (7) HEATH (generalized anxiety disorder) Status: Chronic Current Visit: Yes (8) Gout attack Problem details: clinically dx ds ago. suspected. No Joing Taping undertaken so far. Xray showed no evidence of joint effusion. Status: Acute Current Visit : Yes (9) Pneumonia Status: Resolved Current Visit: Yes Cardiology - PN: Subj Interval history: Patient is sitting up in bedside. esl instructional assistant at bedside to sit with patient after voicing some suicidal ideations yesterday and overnight r/t unrelenting pain in right foot. Dr. Olsen was consulted yesterday, and he has adjusted pain medication. Duragesic patch also added today and patient states she has had no relief. Acknowledges her current emotional state and state of mind may be contributing to her complaints and pains. Currently being evaluated [facility]. No CP, SOB, palpitation, presyncope, cough, or anginal complaint per patient. BP is 150/70 with HR in 70's, regular This patient is stable from a cardiac standpoint and we will sign off. Please reconsult when necessary thank you for this consult.. Exam (Progress Note) - Constitutional Vitals: Period Temp Pulse Resp BP Sys/Painting Pulse Ox Last 24 Hr 96.5 F-98.6 F 64-74 16-18 93-165/42-70 90-99 Exam: General appearance: no acute distress, over weight - Head Head exam: Present: normocephalic. Absent: contusion - Eye Eye exam: Absent: periorbital swelling Pupils: Present: MAY - ENT ENT exam: Present: normal external ear exam - Neck Neck exam: Absent: tenderness - Respiratory Respiratory exam: Present: rales (fine rales scattered throughout). Absent: rhonchi, stridor, wheezes - Cardiovascular Cardiovascular exam: Present: regular rate and rhythm. Absent: bradycardia, tachycardia - GI/Abdominal GI/Abdominal exam: Present: normal bowel sounds, soft. Absent: ascites, distended, tenderness - Extremities Exam Extremities exam: Present: edema (trace pretibial). Absent: full ROM, calf tenderness - Neurological Exam Neurological exam: Present: alert, oriented X3 - Psychiatric Psychiatric exam: Present: flat affect, depressed. Absent: agitated, anxious - Skin Skin exam: Present: warm, dry. Absent: cyanosis, diaphoretic, rash Result/EKG - Labs CBC & BMP: 10/20/16 06:19 10/20/16 06:19 Lab Results: I have reviewed the past 24 hour labs Labs: Laboratory Results - last 24 hr 10/19/16 10/20/16 10/20/16 12:39 06:19 06:19 WBC 14.2 H D RBC 3.11 L Hgb 9.8 L Hct 31.1 L MCV 100.0 MCH 32 MCHC 31.5 L RDW 13.1 Plt Count 431 H MPV 9.6 Neut % (Auto) 69.0 Lymph % (Auto) 9.0 L [place] % (Auto) 8.6 Eos % (Auto) 12.3 H Baso % (Auto) 0.6 Neut # (Auto) 9.8 H Lymph # (Auto) 1.3 L [place] # (Auto) 1.2 H Eos # (Auto) 1.8 H Baso # (Auto) 0.1 Total Counted 100 Immature Gran % 0.5 Nucleated RBC % 0.0 Immature Gran # 0.07 Segmented Neutrophils 79 Lymphocytes 5 L Monocytes 5 Eosinophils 10 Basophils 1.0 H Nucleated RBCs # 0.00 Platelet Estimate Increased Hypochromasia 1+ Sodium 140 Potassium 4.4 Chloride 105 Carbon Dioxide 25 Anion Gap 14.4 BUN 13 Creatinine 0.60 GFR Calculation 103 BUN/Creatinine Ratio 21.00 H Glucose 104 Calculated Osmolality 278.4 Calcium 8.2 L [place] Screen Negative (<1:160) - EKG EKG results: interpreted by me Quality Measures - VTE Deep Vein Thrombosis/Pulmonary Embolism Present on Admission: No I, Mal Corona MD, personally performed the services described in this documentation, ascribed by Marcie Morris RN in my presence, and it is both accurate and complete [id number] .
--- NOTE | 2016-10-20 18:08 | Hospitalist Progress Note ---
Assessment and Plan (1) Right foot pain Status: Acute Assessment and plan: dx clinically on admission as gout and pt has been on antigout meds. NO sure if gouts as joint was not tapped and pt has no h/o gout. c/w meds for now. PT/OT for debility and deconditioning and pain management following. I would order and an MRI of the right foot for further evaluation Current Visit: Yes (2) Suicidal ideation Status: Acute Assessment and plan: Last night patient mentioned to the nurse and to other family member that she will blow her head off because of everything that happened. Patient a few weeks ago and she has been in pain patient on one-on-one sitter and on psychiatric medications. His management informed and psychiatric facility has been contacted. Current Visit: Yes (3) Chest pain Status: Resolved Assessment and plan: per cardiology service, improving, c/w meds Current Visit: Yes (4) Hypokalemia Status: Acute Assessment and plan: replaced Current Visit: Yes (5) Hypomagnesemia Status: Resolved Assessment and plan: replaced Current Visit: Yes (6) Acute renal failure Status: Resolved Assessment and plan: improved, last serum Cr 0.8 Current Visit: Yes (7) Heart failure, diastolic, acute on chronic Status: Acute Assessment and plan: appreciate cardiology recs., c/w meds Current Visit: Yes (8) Depression Status: Acute Assessment and plan: c/w med Current Visit: Yes (9) Back pain Status: Chronic Assessment and plan: c/w pain meds. Patient management is following the ongoing pain complaints. Current Visit: Yes (10) HTN (hypertension) Status: Chronic Assessment and plan: c/w meds Current Visit: Yes Qualifiers: Hypertension type: essential hypertension Qualified Code(s): I10 - Essential (primary) hypertension (11) HEATH (generalized anxiety disorder) Status: Chronic Assessment and plan: c/w med Current Visit: Yes Hospitalist: Subjective Interval history: Patient today feeling better overall but continues to have ongoing right lower extremity pain around the right foot. Patient denies chest pain or SOB or nausea or vomiting or fever or chills or palpitation or focal weakness. The management is following. Exam - Constitutional Vitals: Period Temp Pulse Resp BP Sys/Painting Pulse Ox Last 24 Hr 96.5 F-98.5 F 64-74 16-18 93-165/42-70 90-99 Exam: Gen:a&ox3, NAD neck:no JVD, supple heart:s1s2 , rrr, no murmur lung:reduced BS lung bases, otherwise CTA, no wheezing abd: soft, NT ext:no edema, no cynosis. MSK: active not passive LROM around Rt ankle skin: warm, dry psych: flat affect. Results - Labs CBC & BMP: 10/20/16 06:19 10/20/16 06:19 Quality Measures - VTE Deep Vein Thrombosis/Pulmonary Embolism Present on Admission: No
[2016-10-21] MEDS: HYDROmorphone 2 MG/1 ML VIAL SUBCUT PRN ×3 (05:37→16:16)
--- NOTE | 2016-10-21 06:37 | Pain Management Progress Note ---
Assessment and Plan (1) Right foot pain Status: Acute Assessment and plan: I don't think a block would help I will replace her morphine with the Dilaudid and had oral Percocet to I will also increase her Neurontin to 304 times per day 10/20 I will add a 25 g an hour Duragesic patch to see if that can give her some sustained pain relief 10/21 agree with mri of right foot , continue current medications Current Visit: Yes Pain - Subjective Interval history: Patient reports that the Duragesic patches helped and the pain is not better controlled. Patient is scheduled for MRI of the right foot Exam - Constitutional Vitals: Period Temp Pulse Resp BP Sys/Painting Pulse Ox Last 24 Hr 96.8 F-98.0 F 60-74 14-20 93-165/42-75 95-99 General appearance: normal weight - Head Head exam: Present: normal inspection - Eye Eye exam: Present: EOMI Pupils: Present: MAY - ENT ENT exam: Present: normal exam Ear exam: Present: intact Mouth exam: Present: normal external inspection - Neck Neck exam: Present: normal inspection - Respiratory Respiratory exam: Present: clear to auscultation bilaterally - Cardiovascular Cardiovascular exam: Present: RRR - GI/Abdominal GI/Abdominal exam: Present: normal bowel sounds - Expanded Right Lower Upper Leg exam: Present: normal inspection Knee exam: Present: normal inspection Lower leg exam: Present: normal inspection Ankle exam: Present: normal inspection Foot/Toe exam: Present: tenderness Neuro vascular tendon exam: Present: no vascular compromise Gait: Present: not tested/not observed - Back Exam Back exam: Present: normal inspection - Neurological Exam Neurological exam: Present: alert Results - Labs CBC & BMP: 10/20/16 06:19 10/20/16 06:19 Lab Results: I have reviewed the past 24 hour labs Quality Measures - VTE Deep Vein Thrombosis/Pulmonary Embolism Present on Admission: No
[2016-10-21] MEDS: amLODIPine 10 MG TABLET PO SCH (10:02)
[2016-10-21] MEDS: OMEGA 3 ACID ETHYL ESTERS 1 GM CAPSULE PO SCH ×2 (10:02→20:40)
[2016-10-21] MEDS: PANTOPRAZOLE 40 MG TABLET PO SCH (10:02)
[2016-10-21] MEDS: COLCHICINE 0.6 MG TABLET PO SCH (10:02)
[2016-10-21] MEDS: GABAPENTIN 300 MG CAPSULE PO SCH ×3 (10:02→20:40)
[2016-10-21] MEDS: CAPTOPRIL 6.25 MG TABLET PO SCH ×3 (10:03→20:40)
[2016-10-21] MEDS: SERTRALINE 100 MG TABLET PO SCH (10:03)
[2016-10-21] MEDS: ASPIRIN CHEW 81 MG TABLET PO SCH (10:03)
[2016-10-21] MEDS: MAGNESIUM OXIDE 400 MG TABLET PO SCH ×2 (10:04→20:40)
[2016-10-21] MEDS: cloNIDine 0.1 MG TABLET PO SCH ×2 (10:05→20:40)
[2016-10-21] MEDS: CARVEDILOL 3.125 MG TABLET PO SCH ×2 (10:05→20:40)
[2016-10-21] MEDS: SPIRONOLACTONE 25 MG TABLET PO SCH ×2 (10:05→20:41)
[2016-10-21] MEDS: ENOXAPARIN 40 MG/0.4 ML SYRINGE SUBCUT SCH (10:12)
[2016-10-21] MEDS: POTASSIUM CHLORIDE 20 MEQ PACK PO SCH (10:12)
[2016-10-21] MEDS: DESITIN 4OZ/NYSTATIN 15 GRAM MIXTURE PASTE TOP SCH ×2 (10:20→20:42)
--- NOTE | 2016-10-21 14:38 | Magnetic Resonance Report ---
MR foot RT wo/w con Indication: Persistent pain Comparison: Right foot x-ray dated October 10, 2016 Technique: Multiplanar magnetic resonance imaging of the right foot was performed before and after the administration of 15 cc Dotarem intravenous contrast. Findings: Bones: Irregular hypointense T1 signal and hyperintense T2 signal demonstrated within throughout the talus which is most significant ventrally. There is corresponding postcontrast enhancement. This finding is nonspecific. However, in absence of recent trauma this most likely reflects sequela of osteonecrosis. Tendons and Ligaments: The flexor and extensor tendons are intact without evidence of tenosynovitis. The plantar fascia is unremarkable. Joint spaces: Small subtalar joint fluid present. Small fluid noted adjacent to the ventral Achilles tendon and calcaneus. Soft Tissues: There is no evidence of significant plantar fasciitis. No focal fluid collections are identified to suggest abscess. IMPRESSION: Irregular hypointense T1 signal and hyperintense T2 signal demonstrated within throughout the talus which is most significant ventrally. There is corresponding postcontrast enhancement. This finding is nonspecific. However, in absence of recent trauma this most likely reflects sequela of osteonecrosis. PROCEDURE INTERPRETED AT [facility] DEPARTMENT OF RADIOLOGY Final Report Signed by: Dr Diego Arguelol
--- NOTE | 2016-10-21 16:17 | CT Report ---
Exam: CT lumbar spine wo con Date: 10/21/2016 2:33 PM Comparison: None Indication: Low back pain Total DLP: 575.9 mGy*cm Technical: Axial sagittal and coronal images were available for review without use of intravenous contrast through the lumbosacral spine. Dose reduction was performed with decreasing kv and mA and automated exposure Findings: T11-T12: No obvious focal herniation or protrusion. Mild facet arthropathy on the left present. T12/L1:Minimal facet arthropathy present..The exam reveals no obvious bulging or herniation L1/2: Mild facet arthropathy. The exam reveals mild broad-based bulge without focal protrusion. L2/3:Increased bony sclerosis along the caudal margin of L2 in cephalic margin of L3 with attempted bridging syndesmophyte anteriorly. There is bulging towards the right subarticular recess with the bulging also to the left subarticular recess with some component of flattening of the thecal sac and spinal canal narrowing to approximately 6 mm. There is hypertrophic change and ligamentum flavum present. L3/4:Attempted bridging syndesmophytes present anteriorly. Broad-based bulge is present facet arthropathy with a component of spinal canal stenosis and narrowing present. Hypertrophic change and ligament flavum is present. L4/5:Broad-based bulge is present with mild spinal canal narrowing of the subarticular recesses and facet arthropathy and hypertrophic change and ligamentum flavum. L5/S1:Mild facet arthropathy.. The exam reveals no obvious bulging herniation. Minimal vascular calcification in the aorta aorta measures up to 2.3 cm. The adjacent kidneys lower lung bases the posterior liver paraspinous regions are intact the proximal bladder is unremarkable. Impression: 1. Mild spinal canal stenosis present at the L2-3 L3-4 L4-5 level 2. Degenerative spondylosis 3. Intervertebral discogenic disease and vacuum phenomena at L2-3 4. Bulging disc L2-3 L3-4 and L4-5 minimal bulge at L1-2 PROCEDURE INTERPRETED AT [facility] DEPARTMENT OF RADIOLOGY Final Report Signed by: Dr. Ralph Alcantara
--- NOTE | 2016-10-21 16:29 | Hospitalist Progress Note ---
Assessment and Plan (1) Right foot pain Status: Acute Assessment and plan: MRI showed sequele of osteonecrosis from prevoius trauma Plan: continue pain management's recommendations follow CT lumbar spine Current Visit: Yes (2) Suicidal ideation Status: Acute Assessment and plan: Patient currently denies suicide attempt/ideation. Family members are present in the room 19/04 Current Visit: Yes (3) HTN (hypertension) Status: Chronic Assessment and plan: stable Current Visit: Yes Qualifiers: Hypertension type: essential hypertension Qualified Code(s): I10 - Essential (primary) hypertension (4) Back pain Status: Chronic Assessment and plan: will follow CT report Current Visit: Yes (5) Heart failure, diastolic, acute on chronic Status: Acute Assessment and plan: continue with Cardiology's recommedations Current Visit: Yes (6) Depression Status: Acute Assessment and plan: on meds Current Visit: Yes Hospitalist: Subjective Interval history: Patient seen. She complains of pain in the right leg.MRI showed sequele of osteonecrosis from prevoius trauma. CT lumbar is pending Exam - Constitutional Vitals: Period Temp Pulse Resp BP Sys/Painting Pulse Ox Last 24 Hr 96.9 F-98.0 F 60-74 14-20 130-157/61-75 95-99 General appearance: no acute distress - Head Head exam: Present: normal inspection - Eye Eye exam: Present: EOMI - Respiratory Respiratory exam: Present: clear to auscultation bilaterally - Cardiovascular Cardiovascular exam: Present: regular rate and rhythm - GI/Abdominal GI/Abdominal exam: Present: normal bowel sounds - Extremities Exam Extremities exam: Present: normal inspection Results - Labs CBC & BMP: 10/20/16 06:19 10/20/16 06:19 Lab Results: I have reviewed the past 24 hour labs Quality Measures - VTE Deep Vein Thrombosis/Pulmonary Embolism Present on Admission: No
[2016-10-21] MEDS: SODIUM CHLOR 0.9% KCL 40 MEQ 40 MEQ/1,000 ML BAG IV SCH ×2 (20:38→20:39)
[2016-10-21 20:53] LABS: Apearance,Urine CLEAR (Clear); Bacteria,Urine Occasional /HPF (Few); Bilirubin,Urine Negative (Negative); Blood, Urine Negative (Negative); Glucose,Urine (UA) Negative (Negative); Ketones,Urine Negative (Negative); Nitrite,Urine Negative (Negative); Protein,Urine Negative; RBC,Urine 1 /HPF (0-4); Squamous Epithelial Cell,Urine Occasional /HPF (0-10); Urine Color Yellow (Yellow); Urine Urobilinogen < 2.0 EU/DL (0.2-1.0); WBC,Urine 3 /HPF (0-6)
[2016-10-21] MEDS: MORPHINE 2 MG/1 ML SYRINGE IV PRN (21:15)
[2016-10-22 06:12] LABS: Basophils # 0.1 10*3/uL (0.0-0.2); Basophils % 0.6 % (0.0-0.8); Eosinophils # 1.3 10*3/uL (0.0-0.87); Hematocrit 29.3 VOL% (35.7-47.0); Hemoglobin 9.3 GM/DL (12.0-16.0); Immature Granulocytes % 0.1 %; Immature Granulocytes Absolute 0.01 #; Lymphocytes # 1.1 10*3/uL (1.4-4.0); Lymphocytes % 13.7 % (21.3-54.2); Mean Corpuscular HGB Conc 31.7 GM/DL (32-36); Mean Corpuscular Hemoglobin 32 PG (27-34); Mean Corpuscular Volume 100.3 FL (87-102); Mean Platelet Volume 9.6 FL (9.6-12.0); Monocytes # 0.9 10*3/uL (0.11-0.8); Monocytes % 10.2 % (1.7-12.7); Neutrophils % 59.4 % (38.7-73.9); Platelet Count 433 10*3/uL (130-400); Red Blood Count 2.92 10*6/uL (3.8-5.5); Red Cell Distribution Width 13.2 % (9.3-17.3); White Blood Count 8.3 10*3/uL (4.5-13.71)
--- NOTE | 2016-10-22 06:18 | Pain Management Progress Note ---
Assessment and Plan (1) Right foot pain Status: Acute Assessment and plan: I don't think a block would help I will replace her morphine with the Dilaudid and had oral Percocet to I will also increase her Neurontin to 304 times per day 10/20 I will add a 25 g an hour Duragesic patch to see if that can give her some sustained pain relief 10/21 agree with mri of right foot , continue current medications 10/22 would start her on physical therapy today to see if we can get her up and tried to start ambulating. If not better by tomorrow I will offer her a lumbar epidural steroid injection Current Visit: Yes Pain - Subjective Interval history: Patient seems more comfortable at this time. MRI of the right foot shows some osteonecrosis. Patient does have some degenerative disc disease in the lumbar spine and may benefit from physical therapy if nothing else helps she may be a candidate for lumbar epidural steroid injection which can be done as an outpatient I would like to start her on physical therapy today if possible Exam - Constitutional Vitals: Period Temp Pulse Resp BP Sys/Painting Pulse Ox Last 24 Hr 96.9 F-99.1 F 68-76 18-20 130-156/55-71 92-98 General appearance: normal weight - Head Head exam: Present: normal inspection - Eye Eye exam: Present: EOMI Pupils: Present: MAY - ENT ENT exam: Present: normal exam Ear exam: Present: intact Mouth exam: Present: normal external inspection - Neck Neck exam: Present: normal inspection - Respiratory Respiratory exam: Present: clear to auscultation bilaterally - Cardiovascular Cardiovascular exam: Present: RRR - GI/Abdominal GI/Abdominal exam: Present: normal bowel sounds - Expanded Right Lower Upper Leg exam: Present: normal inspection Knee exam: Present: normal inspection Lower leg exam: Present: normal inspection Ankle exam: Present: normal inspection Foot/Toe exam: Present: tenderness Neuro vascular tendon exam: Present: no vascular compromise Gait: Present: not tested/not observed - Back Exam Back exam: Present: vertebral tenderness - Neurological Exam Neurological exam: Present: alert Results - Labs CBC & BMP: 10/22/16 05:52 10/20/16 06:19 Lab Results: I have reviewed the past 24 hour labs Quality Measures - VTE Deep Vein Thrombosis/Pulmonary Embolism Present on Admission: No
[2016-10-22 06:45] LABS: Band Neutrophils 1 % (0-10); Eosinophils 19 % (0-10); Lymphocytes 8 % (20-55); Segmented Neutrophils 64 % (50-85); Total Cells Counted 100
[2016-10-22 06:46] LABS: Hypochromasia 1+; Macrocytosis 1+; Platelet Estimate Increased
[2016-10-22] MEDS: oxyCODONE/ACETAMINOPHEN 5-325 MG TABLET PO PRN (06:56)
[2016-10-22 07:02] LABS: Calcium 8.5 MG/DL (8.5-10.1); Osmolality,Calculated 279.3 MOS/KG (273-304); Potassium 5.1 MMOL/L (3.5-5.1)
--- NOTE | 2016-10-22 07:07 | Orthopedic Consult Note ---
History of Present Illness Chief complaint: right foot pain History of present illness: Ms. Lanier is a 61 year old female has been complaining of pain in the right posterior last few weeks. She has pain with weightbearing and tenderness to palpation. She states she is not able to "move the foot". She has not had any recent trauma to the right ankle, but did have a fall in which she hurt her back recently. She's been unable to work with therapy secondary to the pain, and that the pain is a burning and stabbing type pain and even feels like hot nails are being driven into the bottom of her foot. Home Medications Medication Instructions Recorded Confirmed Type Lisinopril/Hctz 20-12.5 [Prinzide 1 tablet PO DAILY 10/08/16 10/08/16 History 20-12.5] Hubbard-3 Fatty Acids [Fish Oil] 1,000 mg PO BID 10/08/16 10/08/16 History Omeprazole [Prilosec] 20 mg PO DAILY 10/08/16 10/08/16 History Sertraline [Zoloft] 100 mg PO DAILY 10/08/16 10/08/16 History Allergies Allergy/AdvReac Type Severity Reaction Status Date / Time No Known Allergies Allergy Unverified 10/08/16 19:26 12 point system: reviewed and no additional remarkable complaints except as stated Medical,Surgical,& Family Hx - Medical History Cardio: History of: Hypertension Psychological: History of: Anxiety Disorders Rheumatology: History of;: Gout (right foot) Musculoskeletal: History of: Back/Neck Problems - Surgical History HEENT Surgeries: Surgical HX of: Tonsilectomy & Adenoidectomy Reproductive Surgeries: Surgical HX of;: Section, Tubal Ligation Orthopedic Surgeries: Surgical HX of;: Orthopedic Surgery (Broken left leg repair) - Family History Family History: Reports;: Family Heart Disease (father and brother), Family Hypertension (mother father and brother), Family Psychiatric Problems (mother with anxiety and depression) Denies;: Family Anesthesia Reaction, Family Cancer, Family Diabetes, Family Hematology, Family Stroke, Additional Family History - Social History Smoking Status: Former smoker (states she quit 2-3 weeks ago) Frequency of Alcohol Use: Occasionally Type of Drug Use: None Exam - Constitutional Vitals: Period Temp Pulse Resp BP Sys/Painting Pulse Ox Last 24 Hr 96.9 F-99.1 F 68-76 18-20 130-156/55-71 92-98 Exam: Right lower extremity: She has no erythema or edema in the right ankle or foot. She has good active motion and strength at the knee. She is nontender to palpation the calf. She is hypersensitive to touch on the dorsal and plantar aspects of the foot. She has 3 out of 5 strength in plantarflexion. Essentially 0 out of 5 strength with inversion, eversion, or dorsiflexion of the foot although I cannot ascertain if this is from lack of effort or actual weakness. She has a 2+ dorsalis pedis pulse. Results - Labs CBC & BMP: 10/22/16 05:52 10/22/16 05:52 - Diagnostic Findings Procedure: MRI: image reviewed by me (MR of the ankle show some signal change in the talus, particularly in the neck and inferior body. There are no obvious osteochondral lesions, collapse, or arthritic changes noted.), X-ray: image reviewed by me (radiographs of the right foot show normal alignment, no fractures are noted) Assessment and Plan (1) Other osteonecrosis, right ankle Status: Acute Assessment and plan: From an ankle standpoint, her MRI does have some findings signal change in the talus. She does not have any signs or symptoms consistent with infection or osteomyelitis or any recent significant trauma which could explain these findings. With those 2 etiologies ruled out, the most likely explanation is some early osteonecrosis of the talus. At this point she has no collapse of the talus itself, so no surgical intervention is currently indicated. I think her pain is mostly due to some sort of neuropathic pain, on exam today she does have weakness in the ankle. We will order an AFO for the right ankle so that she can ambulate more safely. From my standpoint, she can be weight- bear to tolerance on the right lower extremity, Orthopedic follow-up as needed. Current Visit: Yes
[2016-10-22] MEDS: ASPIRIN CHEW 81 MG TABLET PO SCH (08:52)
[2016-10-22] MEDS: POTASSIUM CHLORIDE 20 MEQ PACK PO SCH (08:52)
[2016-10-22] MEDS: OMEGA 3 ACID ETHYL ESTERS 1 GM CAPSULE PO SCH ×2 (08:52→21:13)
[2016-10-22] MEDS: ENOXAPARIN 40 MG/0.4 ML SYRINGE SUBCUT SCH (08:52)
[2016-10-22] MEDS: SERTRALINE 100 MG TABLET PO SCH (08:53)
[2016-10-22] MEDS: SPIRONOLACTONE 25 MG TABLET PO SCH ×2 (08:53→21:12)
[2016-10-22] MEDS: CARVEDILOL 3.125 MG TABLET PO SCH ×2 (08:53→21:15)
[2016-10-22] MEDS: MAGNESIUM OXIDE 400 MG TABLET PO SCH ×2 (08:53→21:13)
[2016-10-22] MEDS: PANTOPRAZOLE 40 MG TABLET PO SCH (08:53)
[2016-10-22] MEDS: GABAPENTIN 300 MG CAPSULE PO SCH ×3 (08:53→21:12)
[2016-10-22] MEDS: amLODIPine 10 MG TABLET PO SCH (08:53)
[2016-10-22] MEDS: CAPTOPRIL 6.25 MG TABLET PO SCH ×3 (08:53→21:13)
[2016-10-22] MEDS: COLCHICINE 0.6 MG TABLET PO SCH (08:53)
[2016-10-22] MEDS: cloNIDine 0.1 MG TABLET PO SCH ×2 (08:53→21:13)
[2016-10-22] MEDS: DESITIN 4OZ/NYSTATIN 15 GRAM MIXTURE PASTE TOP SCH ×2 (08:54→21:00)
[2016-10-22] MEDS: MORPHINE 2 MG/1 ML SYRINGE IV PRN ×2 (10:36→21:14)
--- NOTE | 2016-10-22 14:47 | Hospitalist Progress Note ---
Assessment and Plan (1) Right foot pain Status: Acute Assessment and plan: MRI showed sequele of osteonecrosis from prevoius trauma. It is most likely neuropathic in origin though patient is currently on multiple meds. We appreciates ortho's input. Plan: continue pain management's recommendations CT lumbar spine- noted consider Neurology's consult Current Visit: Yes (2) Suicidal ideation Status: Acute Assessment and plan: Patient currently denies suicide attempt/ideation. Family members are present in the room 19/04 Current Visit: Yes (3) HTN (hypertension) Status: Chronic Assessment and plan: stable Current Visit: Yes Qualifiers: Hypertension type: essential hypertension Qualified Code(s): I10 - Essential (primary) hypertension (4) Back pain Status: Chronic Assessment and plan: CT report showed bulging disc, stenosis continue PT and pain management Current Visit: Yes (5) Heart failure, diastolic, acute on chronic Status: Acute Assessment and plan: continue with Cardiology's recommedations Current Visit: Yes (6) Depression Status: Acute Assessment and plan: on meds Current Visit: Yes Hospitalist: Subjective Interval history: patient seen. No new complaints. Still having pain in the right leg. Exam - Constitutional Vitals: Period Temp Pulse Resp BP Sys/Painting Pulse Ox Last 24 Hr 97.3 F-99.1 F 59-79 18-20 119-159/55-76 92-98 General appearance: no acute distress - Head Head exam: Present: normal inspection - Eye Eye exam: Present: EOMI - Respiratory Respiratory exam: Present: clear to auscultation bilaterally - Cardiovascular Cardiovascular exam: Present: regular rate and rhythm - GI/Abdominal GI/Abdominal exam: Present: normal bowel sounds - Extremities Exam Extremities exam: Present: normal inspection Results - Labs CBC & BMP: 10/22/16 05:52 10/22/16 05:52 Lab Results: I have reviewed the past 24 hour labs Quality Measures - VTE Deep Vein Thrombosis/Pulmonary Embolism Present on Admission: No
[2016-10-22] MEDS: MELATONIN 3 MG TABLET PO PRN (21:22)
--- NOTE | 2016-10-23 06:22 | Pain Management Progress Note ---
Assessment and Plan (1) Right foot pain Status: Acute Assessment and plan: I don't think a block would help I will replace her morphine with the Dilaudid and had oral Percocet to I will also increase her Neurontin to 304 times per day 10/20 I will add a 25 g an hour Duragesic patch to see if that can give her some sustained pain relief 10/21 agree with mri of right foot , continue current medications 10/22 would start her on physical therapy today to see if we can get her up and tried to start ambulating. If not better by tomorrow I will offer her a lumbar epidural steroid injection 10/23 awaiting neurology consult , will make outpatient appointment with me in pain clinic Current Visit: Yes Pain - Subjective Interval history: patient is stable overnight. orthopedics note seen and agree with neurology consult. patient is reasonably happy with pain management Exam - Constitutional Vitals: Period Temp Pulse Resp BP Sys/Painting Pulse Ox Last 24 Hr 97.3 F-99.9 F 59-106 16-20 119-159/53-76 92-98 General appearance: normal weight - Head Head exam: Present: normal inspection - Eye Eye exam: Present: EOMI Pupils: Present: MAY - ENT ENT exam: Present: normal exam Ear exam: Present: intact Mouth exam: Present: normal external inspection - Neck Neck exam: Present: normal inspection - Respiratory Respiratory exam: Present: clear to auscultation bilaterally - Cardiovascular Cardiovascular exam: Present: RRR - GI/Abdominal GI/Abdominal exam: Present: normal bowel sounds - Expanded Right Lower Upper Leg exam: Present: normal inspection Knee exam: Present: normal inspection Lower leg exam: Present: normal inspection Ankle exam: Present: full ROM Foot/Toe exam: Present: tenderness Neuro vascular tendon exam: Present: no vascular compromise Gait: Present: not tested/not observed - Back Exam Back exam: Present: vertebral tenderness - Neurological Exam Neurological exam: Present: alert, oriented X3, abnormal gait - Skin Skin exam: Present: normal color Results - Labs CBC & BMP: 10/22/16 05:52 10/22/16 05:52 Lab Results: I have reviewed the past 24 hour labs Quality Measures - VTE Deep Vein Thrombosis/Pulmonary Embolism Present on Admission: No
[2016-10-23] MEDS: MORPHINE 2 MG/1 ML SYRINGE IV PRN ×2 (06:45→11:35)
[2016-10-23] MEDS: GABAPENTIN 300 MG CAPSULE PO SCH ×3 (09:07→20:49)
[2016-10-23] MEDS: MAGNESIUM OXIDE 400 MG TABLET PO SCH ×2 (09:07→20:49)
[2016-10-23] MEDS: SPIRONOLACTONE 25 MG TABLET PO SCH ×2 (09:07→20:49)
[2016-10-23] MEDS: ASPIRIN CHEW 81 MG TABLET PO SCH (09:07)
[2016-10-23] MEDS: COLCHICINE 0.6 MG TABLET PO SCH (09:07)
[2016-10-23] MEDS: OMEGA 3 ACID ETHYL ESTERS 1 GM CAPSULE PO SCH ×2 (09:08→20:49)
[2016-10-23] MEDS: CAPTOPRIL 6.25 MG TABLET PO SCH ×3 (09:08→20:48)
[2016-10-23] MEDS: SERTRALINE 100 MG TABLET PO SCH (09:08)
[2016-10-23] MEDS: PANTOPRAZOLE 40 MG TABLET PO SCH (09:08)
[2016-10-23] MEDS: CARVEDILOL 3.125 MG TABLET PO SCH ×2 (09:08→20:49)
[2016-10-23] MEDS: POTASSIUM CHLORIDE 20 MEQ PACK PO SCH (09:08)
[2016-10-23] MEDS: amLODIPine 10 MG TABLET PO SCH (09:08)
[2016-10-23] MEDS: cloNIDine 0.1 MG TABLET PO SCH ×2 (09:08→20:49)
[2016-10-23] MEDS: DESITIN 4OZ/NYSTATIN 15 GRAM MIXTURE PASTE TOP SCH ×2 (09:09→21:37)
[2016-10-23] MEDS: fentaNYL 25 MCG/HR PATCH TRANSDERM SCH (09:09)
[2016-10-23] MEDS: ENOXAPARIN 40 MG/0.4 ML SYRINGE SUBCUT SCH (09:09)
--- NOTE | 2016-10-23 11:45 | Hospitalist Progress Note ---
Assessment and Plan (1) Right foot pain Status: Acute Assessment and plan: MRI showed sequele of osteonecrosis from prevoius trauma. It is most likely neuropathic in origin though patient is currently on multiple meds. We appreciates ortho's input. Plan: continue pain management's recommendations CT lumbar spine- noted follow Neurology's consult Current Visit: Yes (2) Suicidal ideation Status: Acute Assessment and plan: Patient currently denies suicide attempt/ideation. Family members are present in the room 19/04 Current Visit: Yes (3) HTN (hypertension) Status: Chronic Assessment and plan: stable Current Visit: Yes Qualifiers: Hypertension type: essential hypertension Qualified Code(s): I10 - Essential (primary) hypertension (4) Back pain Status: Chronic Assessment and plan: CT report showed bulging disc, stenosis continue PT and pain management Current Visit: Yes (5) Heart failure, diastolic, acute on chronic Status: Acute Assessment and plan: continue with Cardiology's recommedations Current Visit: Yes (6) Depression Status: Acute Assessment and plan: on meds Current Visit: Yes Hospitalist: Subjective Interval history: Patient states"I cannot complain". She is awaiting Neuro's input Exam - Constitutional Vitals: Period Temp Pulse Resp BP Sys/Painting Pulse Ox Last 24 Hr 98.2 F-99.9 F 59-106 16-20 119-156/53-67 92-98 General appearance: no acute distress - Head Head exam: Present: normal inspection - Respiratory Respiratory exam: Present: clear to auscultation bilaterally - Cardiovascular Cardiovascular exam: Present: regular rate and rhythm - GI/Abdominal GI/Abdominal exam: Present: normal bowel sounds - Extremities Exam Extremities exam: Present: normal inspection Results - Labs CBC & BMP: 10/22/16 05:52 10/22/16 05:52 Lab Results: I have reviewed the past 24 hour labs Quality Measures - VTE Deep Vein Thrombosis/Pulmonary Embolism Present on Admission: No Specialty Discharge - Follow Up or Referrals Follow up with: Zulma Olsen MD [Physician] -
--- NOTE | 2016-10-23 13:12 | Neurology Consult Note ---
History of Present Illness History of present illness: Ms. Lanier is a 61 year old female who presented to the ED with her family. Family reported that she has not been eating well for months since the of her . She denies any past medical history of DM or HTN, or kidney disease. However, labs show an elevated creatinine of 12.2. She does admit to taking NSAID's almost on a daily basis for years. She states that she was scared that she would overdosed on other medications. She has history of back problems as well. She is also complaining of right foot pain. Patient reported that the last 2 weeks she has not been able to move her foot. She has almost developed right foot drop. She has significant amount of pain in the right ankle. MRI of the right ankle revealed mild osteonecrosis. It is not quite clear with the pain is coming from. Of note patient's daughter expresses concern that Ms. Lanier continues to drink. There is concern that she was taking some of her 's prescription pain medications as well. Daughter is concerned that her alcohol use and possible substance abuse has further contributory to her state that she is in right now. Home Medications Medication Instructions Recorded Confirmed Type Lisinopril/Hctz 20-12.5 [Prinzide 1 tablet PO DAILY 10/08/16 10/08/16 History 20-12.5] Nubieber-3 Fatty Acids [Fish Oil] 1,000 mg PO BID 10/08/16 10/08/16 History Omeprazole [Prilosec] 20 mg PO DAILY 10/08/16 10/08/16 History Sertraline [Zoloft] 100 mg PO DAILY 10/08/16 10/08/16 History Allergies Allergy/AdvReac Type Severity Reaction Status Date / Time No Known Allergies Allergy Unverified 10/08/16 19:26 12 point system: reviewed and no additional remarkable complaints except as stated Medical,Surgical,& Family Hx - Medical History Cardio: History of: Hypertension Psychological: History of: Anxiety Disorders Rheumatology: History of;: Gout (right foot) Musculoskeletal: History of: Back/Neck Problems - Surgical History HEENT Surgeries: Surgical HX of: Tonsilectomy & Adenoidectomy Reproductive Surgeries: Surgical HX of;: Section, Tubal Ligation Orthopedic Surgeries: Surgical HX of;: Orthopedic Surgery (Broken left leg repair) - Family History Family History: Reports;: Family Heart Disease (father and brother), Family Hypertension (mother father and brother), Family Psychiatric Problems (mother with anxiety and depression) Denies;: Family Anesthesia Reaction, Family Cancer, Family Diabetes, Family Hematology, Family Stroke, Additional Family History - Social History Smoking Status: Former smoker (states she quit 2-3 weeks ago) Frequency of Alcohol Use: Occasionally Type of Drug Use: None Exam - Constitutional Vitals: Period Temp Pulse Resp BP Sys/Painting Pulse Ox Last 24 Hr 98.2 F-99.9 F 59-106 16-20 119-156/50-66 92-97 Exam: GENERAL: Patient is in no acute distress. NECK: Neck is supple. There is no JVD. No carotid bruits present. No thyroid masses. CVS: First and second heart sounds are normal. There is no S3 present. Regular rate and rhythm. RESPIRATORY: Lungs are clear to auscultation without any rales or rhonchi. ABDOMEN: Soft and non-tender. Bowel sounds are present. There is no hepatosplenomegaly. EXT: There is no palpable edema. Peripheral pulses are present. Marked tenderness in the right foot Skin: No rashes Central Nervous system: General: Alert, awake and Oriented x 3 Speech: Fluent Comprehension: Intact and normal Facial expressions: Normal Cranial Nerves: CN1/Olfactory: Normal CN II/ Optic: Normal, Visual Garcia unreliable CN III, and : MAY & EOMI CN V: Normal & intact CN VII: face is symmetric CNVIII: Normal CN XI/X/XI/XII: Intact and Normal Motor: Bulk and Tone is normal. Strength in the right 5/5 proximally but distally she has right foot drop Strength in the left 5/5 Sensory: Grossly intact for all the modalities of PP, LT and temp sense Reflexes: Absent and symmetrical Cerebellar function: Normal finger to nose testing. Gait: She is not walking at this point Results - Labs CBC & BMP: 10/22/16 05:52 10/22/16 05:52 Assessment and Plan (1) Right foot drop Status: Acute Assessment and plan: The differential diagnosis of the foot drop would be lumbar radiculopathy, peroneal nerve neuropathy and very less likely a tiny stroke in the left hemisphere or Guillain-Gerber syndrome. I would not expect to have that kind of tenderness and pain in the foot region if this is a part of radiculopathy or common peroneal nerve injury or GBS. At any rate she will require further workup to clarify this issue. Current Visit: Yes (2) Right foot pain Status: Acute Assessment and plan: MRI of LS spine without contrast Nerve conduction studies/EMG both lower extremities Continue current pain management. Current Visit: Yes Specialty Discharge - Follow Up or Referrals Follow up with: Zulma Olsen MD [Physician] -
--- NOTE | 2016-10-23 16:37 | Magnetic Resonance Report ---
MR lumbar spine wo con Indication: Right foot pain. MRI LUMBAR SPINE WITHOUT CONTRAST Technique: Multiplanar noncontrast MR images of the lumbar spine were obtained. For the purposes of this study, the lowest 5 full sized vertebral bodies are numbered L1-L5. If surgery is contemplated, then plain film correlation will be necessary. Comparison: None. Findings: Disc desiccation at L2-3, L3-4 and L4-5 is present with disc space narrowing limited to L2-3 and L3-4. The other disc heights are maintained. No abnormal marrow signal. Normal facet joint alignment. Conus terminates at L1. L2-3: Mild broad-based disc bulge with mild ligamentum flavum thickening. Flattening the ventral thecal sac without significant canal stenosis. No significant foraminal stenosis despite mild lateralized disc bulge. L3-4: Mild broad-based disc bulge and ligamentum flavum thickening flattens the ventral thecal sac without causing significant stenosis. Is some lateralized is which are present bilaterally, and on the right, mild foraminal stenosis present. Left is patent. L4-5: Broad-based disc bulge and ligamentum flavum thickening with mild canal stenosis. Bilateral facet joint osteophytes and lateralized disc material causes mild to moderate bilateral foraminal stenosis, symmetric. L5-S1: No significant disc bulge, canal or foraminal stenosis. Minimal bilateral facet joint arthropathy noted. Impression: 1. Degenerative disc disease L2-3, L3-4 and L4-5. Resultant flattening of the ventral thecal sac without stenosis at L2-3 and L3-4. Mild L4-5 canal stenosis accentuated by ligamentum flavum thickening. 2. Mild right L3-4 and moderate bilateral L4-5 foraminal stenosis secondary to combined lateralized disc material and facet joint osteophytes. PROCEDURE INTERPRETED AT [facility] DEPARTMENT OF RADIOLOGY Final Report Signed by: Valeriano Rolle M.D.
--- NOTE | 2016-10-23 16:49 | Magnetic Resonance Report ---
Referring Physician: Jeff Pierce Exam: MRI sacrum without contrast Date: October 23, 2016 Reason: Right foot pain, back pain Comparison: CT lumbar spine October 21, 2016, MRI lumbar spine October 23, 2016 Technique: MRI of the sacrum was performed without the use of contrast. Obtained sequences include sagittal STIR, coronal T1, coronal T2, axial STIR, axial T1 and axial T2 sequences. A 1.5 Nathaly magnet was used. Findings: Motion artifact is present and degrades the quality of the study. No acute fracture or osseous destructive process is identified. No effusion is seen at either SI joint. There is minimal fluid or edema in the lower presacral region, which is nonspecific. No suspicious mass is identified. There is mild generalized atrophy of the visualized paraspinal musculature and gluteus oliverio muscles bilaterally. There is also edema within the visualized paraspinal musculature and within the iliopsoas musculature bilaterally. This could reflect muscle strains or could reflect myositis. Please see the MRI of the lumbar spine performed on the same day for further details. Impression: 1. No acute fracture or osseous destructive process is identified. 2. Nonspecific minimal free fluid or edema in the lower presacral region. 3. Mild generalized atrophy of the visualized paraspinal musculature and gluteus oliverio muscles bilaterally. There is also edema within the visualized paraspinal musculature and within the iliopsoas musculature bilaterally. This could represent muscle strains or myositis. PROCEDURE INTERPRETED AT [facility] DEPARTMENT OF RADIOLOGY Final Report Signed by: Dr. Rocio Conley
[2016-10-23] MEDS: MELATONIN 3 MG TABLET PO PRN (20:49)
[2016-10-23] MEDS: HYDROmorphone 2 MG/1 ML VIAL SUBCUT PRN (21:33)
[2016-10-24] MEDS: HYDROmorphone 2 MG/1 ML VIAL SUBCUT PRN ×3 (05:56→23:36)
[2016-10-24] MEDS: ASPIRIN CHEW 81 MG TABLET PO SCH ×2 (07:52→09:17)
[2016-10-24] MEDS: cloNIDine 0.1 MG TABLET PO SCH ×3 (07:52→21:17)
[2016-10-24] MEDS: SPIRONOLACTONE 25 MG TABLET PO SCH ×3 (07:53→21:16)
[2016-10-24] MEDS: GABAPENTIN 300 MG CAPSULE PO SCH ×5 (07:53→21:17)
[2016-10-24] MEDS: amLODIPine 10 MG TABLET PO SCH ×2 (07:55→09:18)
[2016-10-24] MEDS: COLCHICINE 0.6 MG TABLET PO SCH ×2 (07:55→09:17)
[2016-10-24] MEDS: PANTOPRAZOLE 40 MG TABLET PO SCH ×2 (07:55→09:18)
[2016-10-24] MEDS: OMEGA 3 ACID ETHYL ESTERS 1 GM CAPSULE PO SCH ×3 (07:55→21:18)
[2016-10-24] MEDS: CARVEDILOL 3.125 MG TABLET PO SCH ×3 (07:55→21:18)
[2016-10-24] MEDS: SERTRALINE 100 MG TABLET PO SCH ×2 (07:55→09:18)
[2016-10-24] MEDS: CAPTOPRIL 6.25 MG TABLET PO SCH ×5 (07:56→21:17)
[2016-10-24] MEDS: MAGNESIUM OXIDE 400 MG TABLET PO SCH ×3 (07:56→21:16)
[2016-10-24] MEDS: DESITIN 4OZ/NYSTATIN 15 GRAM MIXTURE PASTE TOP SCH ×3 (07:56→22:37)
[2016-10-24] MEDS: ENOXAPARIN 40 MG/0.4 ML SYRINGE SUBCUT SCH (09:17)
[2016-10-24] MEDS: POTASSIUM CHLORIDE 20 MEQ PACK PO SCH (09:18)
--- NOTE | 2016-10-24 15:06 | Hospitalist Progress Note ---
Assessment and Plan (1) Right foot pain Status: Acute Assessment and plan: with right foot drop. MRI showed sequele of osteonecrosis from prevoius trauma. It is most likely neuropathic in origin though patient is currently on multiple meds. We appreciates ortho's and Neuro's input. Plan: continue pain management's recommendations follow MRI LS, nerve conduction test, follow Neuro's recommedations Current Visit: Yes (2) Suicidal ideation Status: Acute Assessment and plan: Patient currently denies suicide attempt/ideation. Family members are present in the room 19/04 Current Visit: Yes (3) HTN (hypertension) Status: Chronic Assessment and plan: stable Current Visit: Yes Qualifiers: Hypertension type: essential hypertension Qualified Code(s): I10 - Essential (primary) hypertension (4) Back pain Status: Chronic Assessment and plan: CT report showed bulging disc, stenosis continue PT and pain management Current Visit: Yes (5) Heart failure, diastolic, acute on chronic Status: Acute Assessment and plan: continue with Cardiology's recommedations Current Visit: Yes (6) Depression Status: Acute Assessment and plan: on meds Current Visit: Yes (7) UTI (urinary tract infection) Status: Acute Assessment and plan: UC grew Enterobacter cloacae -start IV levaquin, BC-negative so far Current Visit: Yes Hospitalist: Subjective Interval history: Patient seen, she feels ok but still having some pain in her right leg.We appreciate neurology's input Exam - Constitutional Vitals: Period Temp Pulse Resp BP Sys/Painting Pulse Ox Last 24 Hr 97.1 F-98.2 F 57-75 14-18 115-164/53-99 95-99 General appearance: no acute distress - Head Head exam: Present: normal inspection - Respiratory Respiratory exam: Present: clear to auscultation bilaterally - Cardiovascular Cardiovascular exam: Present: regular rate and rhythm - GI/Abdominal GI/Abdominal exam: Present: normal bowel sounds - Extremities Exam Extremities exam: Present: other (right foot drop) Results - Labs CBC & BMP: 10/22/16 05:52 10/22/16 05:52 Lab Results: I have reviewed the past 24 hour labs Quality Measures - VTE Deep Vein Thrombosis/Pulmonary Embolism Present on Admission: No Specialty Discharge - Follow Up or Referrals Follow up with: Zulma Olsen MD [Physician] -
[2016-10-24] MEDS: LEVOFLOXACIN INJ 500 MG in PREMIX 1 EACH IV SCH (15:40)
[2016-10-24] MEDS: MELATONIN 3 MG TABLET PO PRN (21:17)
[2016-10-24] MEDS: oxyCODONE/ACETAMINOPHEN 5-325 MG TABLET PO PRN (21:18)
[2016-10-24] MEDS: SODIUM CHLOR 0.9% KCL 40 MEQ 40 MEQ/1,000 ML BAG IV SCH (21:18)
[2016-10-25] MEDS: CAPTOPRIL 6.25 MG TABLET PO SCH ×3 (08:14→20:16)
[2016-10-25] MEDS: MAGNESIUM OXIDE 400 MG TABLET PO SCH ×2 (08:14→20:16)
[2016-10-25] MEDS: HYDROmorphone 2 MG/1 ML VIAL SUBCUT PRN ×3 (08:14→23:07)
[2016-10-25] MEDS: cloNIDine 0.1 MG TABLET PO SCH ×2 (08:15→20:17)
[2016-10-25] MEDS: COLCHICINE 0.6 MG TABLET PO SCH (08:15)
[2016-10-25] MEDS: amLODIPine 10 MG TABLET PO SCH (08:15)
[2016-10-25] MEDS: SERTRALINE 100 MG TABLET PO SCH (08:15)
[2016-10-25] MEDS: PANTOPRAZOLE 40 MG TABLET PO SCH (08:15)
[2016-10-25] MEDS: CARVEDILOL 3.125 MG TABLET PO SCH ×2 (08:15→20:16)
[2016-10-25] MEDS: GABAPENTIN 300 MG CAPSULE PO SCH ×3 (08:15→20:16)
[2016-10-25] MEDS: SPIRONOLACTONE 25 MG TABLET PO SCH ×2 (08:15→20:16)
[2016-10-25] MEDS: ASPIRIN CHEW 81 MG TABLET PO SCH (08:15)
[2016-10-25] MEDS: OMEGA 3 ACID ETHYL ESTERS 1 GM CAPSULE PO SCH ×2 (08:15→20:17)
[2016-10-25] MEDS: POTASSIUM CHLORIDE 20 MEQ PACK PO SCH (08:16)
[2016-10-25] MEDS: DESITIN 4OZ/NYSTATIN 15 GRAM MIXTURE PASTE TOP SCH ×2 (08:16→20:22)
[2016-10-25] MEDS: ENOXAPARIN 40 MG/0.4 ML SYRINGE SUBCUT SCH (08:18)
--- NOTE | 2016-10-25 12:47 | Hospitalist Progress Note ---
Assessment and Plan (1) Right foot pain Status: Acute Assessment and plan: with right foot drop. MRI showed sequele of osteonecrosis from prevoius trauma. It is most likely neuropathic in origin though patient is currently on multiple meds. We appreciates ortho's and Neuro's input. Plan: continue pain management's recommendations follow MRI LS, nerve conduction test, follow Neuro's recommedations Current Visit: Yes (2) Suicidal ideation Status: Acute Assessment and plan: Patient currently denies suicide attempt/ideation. Family members are present in the room 19/04 Current Visit: Yes (3) HTN (hypertension) Status: Chronic Assessment and plan: stable Current Visit: Yes Qualifiers: Hypertension type: essential hypertension Qualified Code(s): I10 - Essential (primary) hypertension (4) Back pain Status: Chronic Assessment and plan: CT report showed bulging disc, stenosis continue PT and pain management Current Visit: Yes (5) Heart failure, diastolic, acute on chronic Status: Acute Assessment and plan: continue with Cardiology's recommedations Current Visit: Yes (6) Depression Status: Acute Assessment and plan: on meds Current Visit: Yes (7) UTI (urinary tract infection) Status: Acute Assessment and plan: UC grew Enterobacter cloacae -continue IV levaquin, BC-negative so far Current Visit: Yes Hospitalist: Subjective Interval history: Patient seen. No new complaints. Exam - Constitutional Vitals: Period Temp Pulse Resp BP Sys/Painting Pulse Ox Last 24 Hr 97.5 F-98.3 F 59-92 16-18 105-134/49-58 95-100 General appearance: no acute distress - Head Head exam: Present: normal inspection - Neck Neck exam: Present: normal inspection - Respiratory Respiratory exam: Present: clear to auscultation bilaterally - Cardiovascular Cardiovascular exam: Present: regular rate and rhythm - GI/Abdominal GI/Abdominal exam: Present: normal bowel sounds - Extremities Exam Extremities exam: Present: other (right foot drop) Results - Labs CBC & BMP: 10/22/16 05:52 10/22/16 05:52 Lab Results: I have reviewed the past 24 hour labs Quality Measures - VTE Deep Vein Thrombosis/Pulmonary Embolism Present on Admission: No Specialty Discharge - Follow Up or Referrals Follow up with: Zulma Olsen MD [Physician] -
[2016-10-25] MEDS: LEVOFLOXACIN INJ 500 MG in PREMIX 1 EACH IV SCH ×2 (14:21→14:47)
[2016-10-25] MEDS: oxyCODONE/ACETAMINOPHEN 5-325 MG TABLET PO PRN (20:16)
[2016-10-25] MEDS: MELATONIN 3 MG TABLET PO PRN (20:16)
--- NOTE | 2016-10-26 06:40 | Pain Management Progress Note ---
Assessment and Plan (1) Right foot pain Status: Acute Assessment and plan: I don't think a block would help I will replace her morphine with the Dilaudid and had oral Percocet to I will also increase her Neurontin to 304 times per day 10/20 I will add a 25 g an hour Duragesic patch to see if that can give her some sustained pain relief 10/21 agree with mri of right foot , continue current medications 10/22 would start her on physical therapy today to see if we can get her up and tried to start ambulating. If not better by tomorrow I will offer her a lumbar epidural steroid injection 10/23 awaiting neurology consult , will make outpatient appointment with me in pain clinic 10/26 continue current plan of care Current Visit: Yes Pain - Subjective Interval history: still complaining of right foot pain . scheduled for EMG study of lower extremites today . otherwise stable Exam - Constitutional Vitals: Period Temp Pulse Resp BP Sys/Painting Pulse Ox Last 24 Hr 97.6 F-99.4 F 58-65 16-21 106-128/48-83 97-99 General appearance: normal weight - Head Head exam: Present: normal inspection - Eye Eye exam: Present: EOMI Pupils: Present: MAY - ENT ENT exam: Present: normal exam Ear exam: Present: intact Mouth exam: Present: normal external inspection - Neck Neck exam: Present: normal inspection - Respiratory Respiratory exam: Present: clear to auscultation bilaterally - Cardiovascular Cardiovascular exam: Present: RRR - GI/Abdominal GI/Abdominal exam: Present: normal bowel sounds - Expanded Right Lower Upper Leg exam: Present: normal inspection Knee exam: Present: normal inspection Lower leg exam: Present: normal inspection Ankle exam: Present: normal inspection Foot/Toe exam: Present: tenderness Neuro vascular tendon exam: Present: no vascular compromise - Back Exam Back exam: Present: normal inspection - Neurological Exam Neurological exam: Present: alert, oriented X3 - Skin Skin exam: Present: normal color Results - Labs CBC & BMP: 10/22/16 05:52 10/22/16 05:52 Lab Results: I have reviewed the past 24 hour labs Quality Measures - VTE Deep Vein Thrombosis/Pulmonary Embolism Present on Admission: No Specialty Discharge - Follow Up or Referrals Follow up with: Zulma Olsen MD [Physician] -
[2016-10-26] MEDS: fentaNYL 25 MCG/HR PATCH TRANSDERM SCH (08:40)
[2016-10-26] MEDS: ENOXAPARIN 40 MG/0.4 ML SYRINGE SUBCUT SCH (08:40)
[2016-10-26] MEDS: MAGNESIUM OXIDE 400 MG TABLET PO SCH ×2 (08:42→21:31)
[2016-10-26] MEDS: GABAPENTIN 300 MG CAPSULE PO SCH ×3 (08:42→21:31)
[2016-10-26] MEDS: CARVEDILOL 3.125 MG TABLET PO SCH ×2 (08:42→21:32)
[2016-10-26] MEDS: cloNIDine 0.1 MG TABLET PO SCH ×2 (08:42→21:32)
[2016-10-26] MEDS: PANTOPRAZOLE 40 MG TABLET PO SCH (08:42)
[2016-10-26] MEDS: amLODIPine 10 MG TABLET PO SCH (08:43)
[2016-10-26] MEDS: SERTRALINE 100 MG TABLET PO SCH (08:43)
[2016-10-26] MEDS: COLCHICINE 0.6 MG TABLET PO SCH (08:43)
[2016-10-26] MEDS: DESITIN 4OZ/NYSTATIN 15 GRAM MIXTURE PASTE TOP SCH ×2 (08:44→21:41)
[2016-10-26] MEDS: SPIRONOLACTONE 25 MG TABLET PO SCH ×2 (08:44→21:41)
[2016-10-26] MEDS: OMEGA 3 ACID ETHYL ESTERS 1 GM CAPSULE PO SCH ×2 (08:44→21:31)
[2016-10-26] MEDS: CAPTOPRIL 6.25 MG TABLET PO SCH ×3 (08:44→21:36)
[2016-10-26] MEDS: ASPIRIN CHEW 81 MG TABLET PO SCH (08:45)
--- NOTE | 2016-10-26 11:12 | Hospitalist Progress Note ---
Assessment and Plan (1) Right foot pain Status: Acute Assessment and plan: with right foot drop. MRI showed sequele of osteonecrosis from prevoius trauma. It is most likely neuropathic in origin though patient is currently on multiple meds. We appreciates ortho's and Neuro's input. Plan: continue pain management's recommendations follow MRI LS, nerve conduction test, follow Neuro's recommedations Current Visit: Yes (2) Suicidal ideation Status: Acute Assessment and plan: Patient currently denies suicide attempt/ideation. Current Visit: Yes (3) HTN (hypertension) Status: Chronic Assessment and plan: stable Current Visit: Yes Qualifiers: Hypertension type: essential hypertension Qualified Code(s): I10 - Essential (primary) hypertension (4) Back pain Status: Chronic Assessment and plan: CT report showed bulging disc, stenosis continue PT and pain management Current Visit: Yes (5) Heart failure, diastolic, acute on chronic Status: Acute Assessment and plan: continue with Cardiology's recommedations Current Visit: Yes (6) Depression Status: Acute Assessment and plan: on meds Current Visit: Yes (7) UTI (urinary tract infection) Status: Acute Assessment and plan: UC grew Enterobacter cloacae -continue IV levaquin, BC-negative so far Current Visit: Yes Hospitalist: Subjective Interval history: Patient is having an EMG today. Exam - Constitutional Vitals: Period Temp Pulse Resp BP Sys/Painting Pulse Ox Last 24 Hr 97.6 F-99.4 F 58-65 16-21 106-129/48-83 95-99 General appearance: no acute distress - Head Head exam: Present: normal inspection - Eye Eye exam: Present: EOMI - Respiratory Respiratory exam: Present: clear to auscultation bilaterally - Cardiovascular Cardiovascular exam: Present: regular rate and rhythm - GI/Abdominal GI/Abdominal exam: Present: normal bowel sounds - Extremities Exam Extremities exam: Present: other (right foot drop) Results - Labs CBC & BMP: 10/22/16 05:52 10/22/16 05:52 Lab Results: I have reviewed the past 24 hour labs Quality Measures - VTE Deep Vein Thrombosis/Pulmonary Embolism Present on Admission: No Specialty Discharge - Follow Up or Referrals Follow up with: Zulma Olsen MD [Physician] -
[2016-10-26] MEDS: HYDROmorphone 2 MG/1 ML VIAL IV PRN ×2 (12:51→21:32)
[2016-10-26] MEDS: LEVOFLOXACIN INJ 500 MG in PREMIX 1 EACH IV SCH (15:42)
[2016-10-26] MEDS: MELATONIN 3 MG TABLET PO PRN (21:31)
[2016-10-26 23:41] LABS: Basophils # 0.1 10*3/uL (0.0-0.2); Basophils % 0.9 % (0.0-0.8); Eosinophils # 1.1 10*3/uL (0.0-0.87); Eosinophils % 14.6 % (0.00-10.9); Hematocrit 27.5 VOL% (35.7-47.0); Hemoglobin 8.8 GM/DL (12.0-16.0); Immature Granulocytes % 0.3 %; Immature Granulocytes Absolute 0.02 #; Lymphocytes % 26.3 % (21.3-54.2); Mean Corpuscular Hemoglobin 32 PG (27-34); Mean Corpuscular Volume 98.6 FL (87-102); Mean Platelet Volume 9.4 FL (9.6-12.0); Monocytes # 0.9 10*3/uL (0.11-0.8); Monocytes % 11.9 % (1.7-12.7); Neutrophils # 3.6 10*3/uL (1.4-7.4); Platelet Count 429 T/CUMM (130-400); Red Blood Count 2.79 MC/CUMM (3.8-5.5); Red Cell Distribution Width 13.2 % (9.3-17.3); White Blood Count 7.7 T/CUMM (4-12)
[2016-10-27 00:03] LABS: Alanine Aminotransferase 24 U/L (13-56); Albumin 2.7 G/DL (3.4-5.0); Alkaline Phosphatase 116 U/L (45-117); Aspartate Amino Transferase 22 U/L (0-37); Bilirubin,Total < 0.39 MG/DL (0.2-1.0); Blood Urea Nitrogen 14 MG/DL (7-18); Calcium 8.5 MG/DL (8.5-10.1); Glucose 94 MG/DL (74-106); Osmolality,Calculated 273.8 MOS/KG (273-304); Potassium 4.8 MMOL/L (3.5-5.1); Sodium 137 MMOL/L (136-145); Total Protein 5.8 G/DL (6.4-8.3)
[2016-10-27 04:39] LABS: Eosinophils 14 % (0-10); Lymphocytes 28 % (20-55); Platelet Estimate Increased; Segmented Neutrophils 49 % (50-85); Total Cells Counted 100
--- NOTE | 2016-10-27 06:05 | Pain Management Progress Note ---
Assessment and Plan (1) Right foot pain Status: Acute Assessment and plan: I don't think a block would help I will replace her morphine with the Dilaudid and had oral Percocet to I will also increase her Neurontin to 304 times per day 10/20 I will add a 25 g an hour Duragesic patch to see if that can give her some sustained pain relief 10/21 agree with mri of right foot , continue current medications 10/22 would start her on physical therapy today to see if we can get her up and tried to start ambulating. If not better by tomorrow I will offer her a lumbar epidural steroid injection 10/23 awaiting neurology consult , will make outpatient appointment with me in pain clinic 10/26 continue current plan of care 10/27 I agree in proceeding with the lumbar puncture and will follow up on the results if needed a lumbar epidural injection can be performed Current Visit: Yes Pain - Subjective Interval history: Patient is scheduled for lumbar puncture due to neuropathy seen and foot drop seen on EMG pain seems to be reasonably controlled Exam - Constitutional Vitals: Period Temp Pulse Resp BP Sys/Painting Pulse Ox Last 24 Hr 97.3 F-98.6 F 59-80 18-20 99-129/42-67 92-98 General appearance: normal weight - Head Head exam: Present: normal inspection - Eye Eye exam: Present: EOMI Pupils: Present: MAY - ENT ENT exam: Present: normal exam Ear exam: Present: intact Mouth exam: Present: normal external inspection - Neck Neck exam: Present: normal inspection - Respiratory Respiratory exam: Present: clear to auscultation bilaterally - Cardiovascular Cardiovascular exam: Present: RRR - GI/Abdominal GI/Abdominal exam: Present: normal bowel sounds - Expanded Right Lower Upper Leg exam: Present: normal inspection Knee exam: Present: normal inspection Lower leg exam: Present: normal inspection Ankle exam: Present: normal inspection Foot/Toe exam: Present: tenderness Neuro vascular tendon exam: Present: decreased fine/light touch, foot drop, no vascular compromise Gait: Present: not tested/not observed - Back Exam Back exam: Present: vertebral tenderness - Neurological Exam Neurological exam: Present: alert, oriented X3, abnormal gait - Skin Skin exam: Present: normal color Results - Labs CBC & BMP: 10/26/16 23:31 10/26/16 23:31 Lab Results: I have reviewed the past 24 hour labs Quality Measures - VTE Deep Vein Thrombosis/Pulmonary Embolism Present on Admission: No Specialty Discharge - Follow Up or Referrals Follow up with: Zulma Olsen MD [Physician] - 11/06/16 10:15 am
[2016-10-27] MEDS: HYDROmorphone 2 MG/1 ML VIAL IV PRN ×2 (06:54→14:02)
[2016-10-27] MEDS: ASPIRIN CHEW 81 MG TABLET PO SCH (08:25)
[2016-10-27] MEDS: OMEGA 3 ACID ETHYL ESTERS 1 GM CAPSULE PO SCH ×2 (08:25→21:56)
[2016-10-27] MEDS: SPIRONOLACTONE 25 MG TABLET PO SCH ×2 (08:25→21:57)
[2016-10-27] MEDS: CAPTOPRIL 6.25 MG TABLET PO SCH ×3 (08:25→21:56)
[2016-10-27] MEDS: CARVEDILOL 3.125 MG TABLET PO SCH ×2 (08:25→21:57)
[2016-10-27] MEDS: cloNIDine 0.1 MG TABLET PO SCH ×2 (08:25→21:56)
[2016-10-27] MEDS: COLCHICINE 0.6 MG TABLET PO SCH ×2 (08:25→14:01)
[2016-10-27] MEDS: ENOXAPARIN 40 MG/0.4 ML SYRINGE SUBCUT SCH (08:25)
[2016-10-27] MEDS: MAGNESIUM OXIDE 400 MG TABLET PO SCH ×2 (08:26→21:56)
[2016-10-27] MEDS: SERTRALINE 100 MG TABLET PO SCH ×2 (08:26→14:01)
[2016-10-27] MEDS: amLODIPine 10 MG TABLET PO SCH (08:26)
[2016-10-27] MEDS: PANTOPRAZOLE 40 MG TABLET PO SCH ×2 (08:26→14:01)
[2016-10-27] MEDS: DESITIN 4OZ/NYSTATIN 15 GRAM MIXTURE PASTE TOP SCH ×2 (08:26→21:57)
[2016-10-27] MEDS: GABAPENTIN 300 MG CAPSULE PO SCH ×3 (08:26→21:57)
[2016-10-27] MEDS: SODIUM CHLOR 0.9% KCL 40 MEQ 40 MEQ/1,000 ML BAG IV SCH (09:22)
[2016-10-27 10:23] LABS: Lymphocytes,CSF 44 %; Monocytes,CSF 56 %
[2016-10-27 10:24] LABS: Appearance,CSF Clear; Red Blood Cell,CSF 17 C/CUMM; White Blood Cell,CSF 10 C/CUMM
[2016-10-27 10:26] LABS: Glucose,CSF 53 MG/DL (40-70)
--- NOTE | 2016-10-27 10:31 | Post Interventional Procedure ---
Pre-op diagnosis: foot drop possible Guillian-Perkins Post-op diagnosis: same Procedure: diagnostic lumbar puncture Contrast: none Flouroscopy: 0.6 min Radiologist: Tyree Smith Anesthesia: local Specimens: other (10 mL clear colorless CSF) Estimated blood loss: none Complications: none Condition: stable Description/Findings: opening pressure 10 cm H2O, L2-L3 space entered Assessment and Plan - Time spent with patient Time spent with patient: Less than 30 minutes (1) Peripheral neuropathic pain Problem details: not improving Status: Acute Assessment and plan: getting LP for possible GBS Current Visit: Yes (2) Right foot drop Problem details: not getting better with current treatment Status: Acute Assessment and plan: possible GBS Current Visit: Yes
--- NOTE | 2016-10-27 10:43 | Interventional Radiology Rpt ---
Procedure: IR lumbar puncture diagnostic Clinical history: 61-year-old female with foot drop. Procedure: Informed consent was obtained prior to procedure. Formal timeout was performed. Maximum sterile barrier technique was employed. The patient was placed prone on the fluoroscopy table. The low back was prepped and draped in a sterile fashion. A midline lumbar puncture was then performed at the L2-L3 interspace using a 20-gauge spinal needle. Fluoroscopic guidance was used and a captured image documents the needle position. An opening pressure of 10 cm water was obtained. Subsequently, 10 milliliters of clear, colorless CSF was withdrawn and sent to laboratory. The spinal needle was removed and a bandage placed the puncture site. Fluoroscopy time: 0.6 minutes. Consultations: None. Impression: Technically successful diagnostic lumbar puncture as described. PROCEDURE INTERPRETED AT [facility] DEPARTMENT OF RADIOLOGY Final Report Signed by: Tyree Smith
--- NOTE | 2016-10-27 11:34 | Hospitalist Progress Note ---
Assessment and Plan (1) Right foot pain Status: Acute Assessment and plan: with right foot drop. EMG report revealed peroneal nerve injury, questionable GBS MRI showed sequele of osteonecrosis from prevoius trauma. Plan: continue pain management's recommendations follow LP results, follow Neuro's recommendations. Current Visit: Yes (2) Suicidal ideation Status: Acute Assessment and plan: Patient currently denies suicide attempt/ideation. Current Visit: Yes (3) HTN (hypertension) Status: Chronic Assessment and plan: stable Current Visit: Yes Qualifiers: Hypertension type: essential hypertension Qualified Code(s): I10 - Essential (primary) hypertension (4) Back pain Status: Chronic Assessment and plan: CT report showed bulging disc, stenosis continue PT and pain management Current Visit: Yes (5) Heart failure, diastolic, acute on chronic Status: Acute Assessment and plan: continue with Cardiology's recommedations Current Visit: Yes (6) Depression Status: Acute Assessment and plan: on meds Current Visit: Yes (7) UTI (urinary tract infection) Status: Acute Assessment and plan: UC grew Enterobacter cloacae -continue IV levaquin, BC-negative so far Current Visit: Yes Hospitalist: Subjective Interval history: Patient seen. EMG report revealed peroneal nerve injury, questionable GBS. She had a lumbar puncture today. Exam - Constitutional Vitals: Period Temp Pulse Resp BP Sys/Painting Pulse Ox Last 24 Hr 97.3 F-98.6 F 59-80 14-20 99-150/42-69 92-100 General appearance: no acute distress, other - Head Head exam: Present: normal inspection - Respiratory Respiratory exam: Present: clear to auscultation bilaterally - Cardiovascular Cardiovascular exam: Present: regular rate and rhythm - GI/Abdominal GI/Abdominal exam: Present: normal bowel sounds - Extremities Exam Extremities exam: Present: normal inspection Results - Labs CBC & BMP: 10/26/16 23:31 10/26/16 23:31 Lab Results: I have reviewed the past 24 hour labs Quality Measures - VTE Deep Vein Thrombosis/Pulmonary Embolism Present on Admission: No Specialty Discharge - Follow Up or Referrals Follow up with: Zulma Olsen MD [Physician] - 11/06/16 10:15 am
--- NOTE | 2016-10-27 15:18 | Neurology Progress Note ---
Cesario Herbert Chassity, am scribing for, and in the presence of, Jeff Pierce MD 16 :20. Neurology - PN : Subjective Interval history: Patient seems to be doing about the same. EMG report revealed peroneal nerve injury, questionable GBS. She continues to have right foot drop. MRI L/S reveals mild ddd. Exam (Progress Note) - Constitutional Vitals: Period Temp Pulse Resp BP Sys/Painting Pulse Ox Last 24 Hr 98.0 F-99.4 F 58-75 16-21 99-129/48-83 95-99 Exam: GENERAL: Patient is in no acute distress. NECK: Neck is supple. There is no JVD. No carotid bruits present. No thyroid masses. CVS: First and second heart sounds are normal. There is no S3 present. Regular rate and rhythm. RESPIRATORY: Lungs are clear to auscultation without any rales or rhonchi. ABDOMEN: Soft and non-tender. Bowel sounds are present. There is no hepatosplenomegaly. EXT: There is no palpable edema. Peripheral pulses are present. Marked tenderness in the right foot Skin: No rashes Central Nervous system: General: Alert, awake and Oriented x 3 Speech: Fluent Comprehension: Intact and normal Facial expressions: Normal Cranial Nerves: CN1/Olfactory: Normal CN II/ Optic: Normal, Visual Garcia unreliable CN III, and : MAY & EOMI CN V: Normal & intact CN VII: face is symmetric CNVIII: Normal CN XI/X/XI/XII: Intact and Normal Motor: Bulk and Tone is normal. Strength in the right 5/5 proximally but distally she has right foot drop Strength in the left 5/5 Sensory: Grossly intact for all the modalities of PP, LT and temp sense Reflexes: Absent and symmetrical Cerebellar function: Normal finger to nose testing. Gait: She is not walking at this point Results - Labs CBC & BMP: 10/22/16 05:52 10/22/16 05:52 Assessment and Plan (1) Right foot drop Status: Acute Assessment and plan: Suggest lumbar puncture to R/O GBS. Continue PT. Current Visit: Yes Quality Measures - VTE Deep Vein Thrombosis/Pulmonary Embolism Present on Admission: No Specialty Discharge - Follow Up or Referrals Follow up with: Zulma Olsen MD [Physician] - 11/06/16 10:15 am I, Jeff Pierce MD, personally performed the services described in this documentation, ascribed by Kanwal Nassar in my presence, and it is both accurate and complete .
--- NOTE | 2016-10-27 15:19 | Neurology Progress Note ---
Neurology - PN : Subjective Interval history: Patient seems to be doing better. She is sitting at the edge the bed. No new possible. Pain is under better control. Status post spinal tap which is not consistent with Guillain-Gerber syndrome. Right foot drop is most likely due to right common peroneal nerve injury. Exam (Progress Note) - Constitutional Vitals: Period Temp Pulse Resp BP Sys/Painting Pulse Ox Last 24 Hr 97.3 F-98.6 F 59-80 14-20 114-150/42-69 92-100 Exam: GENERAL: Patient is in no acute distress. NECK: Neck is supple. There is no JVD. No carotid bruits present. No thyroid masses. CVS: First and second heart sounds are normal. There is no S3 present. Regular rate and rhythm. RESPIRATORY: Lungs are clear to auscultation without any rales or rhonchi. ABDOMEN: Soft and non-tender. Bowel sounds are present. There is no hepatosplenomegaly. EXT: There is no palpable edema. Peripheral pulses are present. Marked tenderness in the right foot Skin: No rashes Central Nervous system: General: Alert, awake and Oriented x 3 Speech: Fluent Comprehension: Intact and normal Facial expressions: Normal Cranial Nerves: CN1/Olfactory: Normal CN II/ Optic: Normal, Visual Garcia unreliable CN III, and : MAY & EOMI CN V: Normal & intact CN VII: face is symmetric CNVIII: Normal CN XI/X/XI/XII: Intact and Normal Motor: Bulk and Tone is normal. Strength in the right 5/5 proximally but distally she has right foot drop Strength in the left 5/5 Sensory: Grossly intact for all the modalities of PP, LT and temp sense Reflexes: Absent and symmetrical Cerebellar function: Normal finger to nose testing. Gait: She is not walking at this point Results - Labs CBC & BMP: 10/26/16 23:31 10/26/16 23:31 Assessment and Plan (1) Right foot drop Problem details: not getting better with current treatment Status: Acute Assessment and plan: Recommend AFO Recommend outpatient PT Okay to go home from neuro standpoint Signoff please call when necessary Current Visit: Yes Quality Measures - VTE Deep Vein Thrombosis/Pulmonary Embolism Present on Admission: No Specialty Discharge - Follow Up or Referrals Follow up with: Zulma Olsen MD [Physician] - 11/06/16 10:15 am
[2016-10-27] MEDS: LEVOFLOXACIN INJ 500 MG in PREMIX 1 EACH IV SCH (16:19)
[2016-10-27] MEDS: MELATONIN 3 MG TABLET PO PRN (22:47)
--- NOTE | 2016-10-28 06:05 | Pain Management Progress Note ---
Assessment and Plan (1) Right foot pain Status: Acute Assessment and plan: I don't think a block would help I will replace her morphine with the Dilaudid and had oral Percocet to I will also increase her Neurontin to 304 times per day 10/20 I will add a 25 g an hour Duragesic patch to see if that can give her some sustained pain relief 10/21 agree with mri of right foot , continue current medications 10/22 would start her on physical therapy today to see if we can get her up and tried to start ambulating. If not better by tomorrow I will offer her a lumbar epidural steroid injection 10/23 awaiting neurology consult , will make outpatient appointment with me in pain clinic 10/26 continue current plan of care 10/27 I agree in proceeding with the lumbar puncture and will follow up on the results if needed a lumbar epidural injection can be performed 10/28 recommended been to current medications until discharge Current Visit: Yes Pain - Subjective Interval history: Patient seems more comfortable this morning. And nerve study results were discussed with the Dr. Pierce and they are not consistent with the Guillan [place] syndrome and more likely due to right common peroneal nerve injury. And patient would benefit from physical therapy and follow AFO prosthesis in the right shoe Exam - Constitutional Vitals: Period Temp Pulse Resp BP Sys/Painting Pulse Ox Last 24 Hr 97.1 F-98.7 F 56-64 14-18 109-150/52-69 95-100 General appearance: normal weight - Head Head exam: Present: normal inspection - Eye Eye exam: Present: EOMI Pupils: Present: MAY - ENT ENT exam: Present: normal exam Ear exam: Present: intact Mouth exam: Present: normal external inspection - Neck Neck exam: Present: normal inspection - Cardiovascular Cardiovascular exam: Present: RRR - GI/Abdominal GI/Abdominal exam: Present: normal bowel sounds - Expanded Right Lower Upper Leg exam: Present: normal inspection Knee exam: Present: normal inspection Lower leg exam: Present: normal inspection Ankle exam: Present: normal inspection Foot/Toe exam: Present: tenderness Neuro vascular tendon exam: Present: no vascular compromise Gait: Present: not tested/not observed - Back Exam Back exam: Present: vertebral tenderness - Neurological Exam Neurological exam: Present: alert, oriented X3 - Skin Skin exam: Present: normal color Results - Labs CBC & BMP: 10/26/16 23:31 10/26/16 23:31 Lab Results: I have reviewed the past 24 hour labs Quality Measures - VTE Deep Vein Thrombosis/Pulmonary Embolism Present on Admission: No Specialty Discharge - Follow Up or Referrals Follow up with: Zulma Olsen MD [Physician] - 11/06/16 10:15 am
[2016-10-28] MEDS: HYDROmorphone 2 MG/1 ML VIAL IV PRN ×2 (06:35→20:54)
[2016-10-28] MEDS: ACETAMINOPHEN 325 MG TABLET PO PRN ×2 (09:46→22:07)
[2016-10-28] MEDS: COLCHICINE 0.6 MG TABLET PO SCH (09:48)
[2016-10-28] MEDS: DESITIN 4OZ/NYSTATIN 15 GRAM MIXTURE PASTE TOP SCH ×2 (09:48→20:50)
[2016-10-28] MEDS: amLODIPine 10 MG TABLET PO SCH (09:48)
[2016-10-28] MEDS: cloNIDine 0.1 MG TABLET PO SCH ×3 (09:48→20:54)
[2016-10-28] MEDS: GABAPENTIN 300 MG CAPSULE PO SCH ×3 (09:49→20:49)
[2016-10-28] MEDS: ASPIRIN CHEW 81 MG TABLET PO SCH (09:49)
[2016-10-28] MEDS: PANTOPRAZOLE 40 MG TABLET PO SCH (09:49)
[2016-10-28] MEDS: CARVEDILOL 3.125 MG TABLET PO SCH ×2 (09:50→20:48)
[2016-10-28] MEDS: SPIRONOLACTONE 25 MG TABLET PO SCH ×2 (09:50→20:49)
[2016-10-28] MEDS: MAGNESIUM OXIDE 400 MG TABLET PO SCH ×2 (09:50→20:53)
[2016-10-28] MEDS: CAPTOPRIL 6.25 MG TABLET PO SCH ×3 (09:50→20:49)
[2016-10-28] MEDS: SERTRALINE 100 MG TABLET PO SCH (09:53)
[2016-10-28] MEDS: OMEGA 3 ACID ETHYL ESTERS 1 GM CAPSULE PO SCH ×2 (09:54→20:49)
[2016-10-28] MEDS: ENOXAPARIN 40 MG/0.4 ML SYRINGE SUBCUT SCH (09:57)
[2016-10-28] MEDS: LEVOFLOXACIN INJ 500 MG in PREMIX 1 EACH IV SCH (15:41)
--- NOTE | 2016-10-28 18:50 | Hospitalist Progress Note ---
Assessment and Plan (1) Right foot pain Status: Acute Assessment and plan: with right foot drop. MRI showed sequele of osteonecrosis from prevoius trauma. Nerve study results not consistent with the Guillan [place] syndrome and more likely due to right common peroneal nerve injury. LP fluid analysis noted. Plan physical therapy and follow AFO prosthesis in the right shoe continue pain management's recommendations f Current Visit: Yes (2) Suicidal ideation Status: Acute Assessment and plan: Patient currently denies suicide attempt/ideation. Current Visit: Yes (3) HTN (hypertension) Status: Chronic Assessment and plan: stable Current Visit: Yes Qualifiers: Hypertension type: essential hypertension Qualified Code(s): I10 - Essential (primary) hypertension (4) Back pain Status: Chronic Assessment and plan: CT report showed bulging disc, stenosis continue PT and pain management Current Visit: Yes (5) Heart failure, diastolic, acute on chronic Status: Acute Assessment and plan: continue with Cardiology's recommedations Current Visit: Yes (6) Depression Status: Acute Assessment and plan: on meds Current Visit: Yes (7) UTI (urinary tract infection) Status: Acute Assessment and plan: UC grew Enterobacter cloacae -continue IV levaquin, BC-negative so far Current Visit: Yes Hospitalist: Subjective Interval history: Patient seen.No new issues. CSF result noted Exam - Constitutional Vitals: Period Temp Pulse Resp BP Sys/Painting Pulse Ox Last 24 Hr 97.1 F-97.9 F 57-62 16-18 109-130/52-57 96-97 General appearance: no acute distress - Head Head exam: Present: normal inspection - Eye Eye exam: Present: EOMI - Respiratory Respiratory exam: Present: clear to auscultation bilaterally - Cardiovascular Cardiovascular exam: Present: regular rate and rhythm - GI/Abdominal GI/Abdominal exam: Present: normal bowel sounds - Extremities Exam Extremities exam: Present: normal inspection Results - Labs CBC & BMP: 10/26/16 23:31 10/26/16 23:31 Lab Results: I have reviewed the past 24 hour labs Quality Measures - VTE Deep Vein Thrombosis/Pulmonary Embolism Present on Admission: No Specialty Discharge - Follow Up or Referrals Follow up with: Zulma Olsen MD [Physician] - 11/06/16 10:15 am
[2016-10-28] MEDS: MELATONIN 3 MG TABLET PO PRN (20:48)
[2016-10-29] MEDS: DESITIN 4OZ/NYSTATIN 15 GRAM MIXTURE PASTE TOP SCH ×2 (09:00→21:27)
[2016-10-29] MEDS: MAGNESIUM OXIDE 400 MG TABLET PO SCH ×2 (09:58→21:31)
[2016-10-29] MEDS: COLCHICINE 0.6 MG TABLET PO SCH (09:58)
[2016-10-29] MEDS: SPIRONOLACTONE 25 MG TABLET PO SCH ×2 (09:58→21:25)
[2016-10-29] MEDS: PANTOPRAZOLE 40 MG TABLET PO SCH (09:58)
[2016-10-29] MEDS: ENOXAPARIN 40 MG/0.4 ML SYRINGE SUBCUT SCH (09:58)
[2016-10-29] MEDS: GABAPENTIN 300 MG CAPSULE PO SCH ×3 (09:58→21:24)
[2016-10-29] MEDS: OMEGA 3 ACID ETHYL ESTERS 1 GM CAPSULE PO SCH ×2 (09:58→21:32)
[2016-10-29] MEDS: CARVEDILOL 3.125 MG TABLET PO SCH ×2 (09:58→21:24)
[2016-10-29] MEDS: ASPIRIN CHEW 81 MG TABLET PO SCH (10:00)
[2016-10-29] MEDS: HYDROmorphone 2 MG/1 ML VIAL IV PRN ×2 (10:18→21:26)
[2016-10-29] MEDS: amLODIPine 10 MG TABLET PO SCH (10:23)
[2016-10-29] MEDS: SERTRALINE 100 MG TABLET PO SCH (10:24)
[2016-10-29] MEDS: cloNIDine 0.1 MG TABLET PO SCH ×2 (10:27→21:24)
[2016-10-29] MEDS: CAPTOPRIL 6.25 MG TABLET PO SCH ×3 (10:28→21:24)
[2016-10-29] MEDS: ACETAMINOPHEN 325 MG TABLET PO PRN (13:04)
--- NOTE | 2016-10-29 13:35 | Hospitalist Progress Note ---
Assessment and Plan (1) Right foot pain Status: Acute Assessment and plan: with right foot drop. MRI showed sequele of osteonecrosis from prevoius trauma. Nerve study results not consistent with the Guillan [place] syndrome and more likely due to right common peroneal nerve injury. LP fluid analysis noted. Plan physical therapy and follow AFO prosthesis in the right shoe continue pain management's recommendations f Current Visit: Yes (2) Suicidal ideation Status: Acute Assessment and plan: Patient currently denies suicide attempt/ideation. Current Visit: Yes (3) HTN (hypertension) Status: Chronic Assessment and plan: stable Current Visit: Yes Qualifiers: Hypertension type: essential hypertension Qualified Code(s): I10 - Essential (primary) hypertension (4) Back pain Status: Chronic Assessment and plan: CT report showed bulging disc, stenosis continue PT and pain management Current Visit: Yes (5) Heart failure, diastolic, acute on chronic Status: Acute Assessment and plan: continue with Cardiology's recommedations Current Visit: Yes (6) Depression Status: Acute Assessment and plan: on meds Current Visit: Yes (7) UTI (urinary tract infection) Status: Acute Assessment and plan: UC grew Enterobacter cloacae -continue IV levaquin, BC-negative so far Current Visit: Yes Hospitalist: Subjective Interval history: Patient seen. We have started her dc plan, hopefully to go in am. Exam - Constitutional Vitals: Period Temp Pulse Resp BP Sys/Painting Pulse Ox Last 24 Hr 97 F-98.4 F 58-62 16-19 98-130/53-62 96-97 General appearance: no acute distress - Head Head exam: Present: normal inspection - Respiratory Respiratory exam: Present: clear to auscultation bilaterally - Cardiovascular Cardiovascular exam: Present: regular rate and rhythm - GI/Abdominal GI/Abdominal exam: Present: normal bowel sounds - Extremities Exam Extremities exam: Present: normal inspection Results - Labs CBC & BMP: 10/26/16 23:31 10/26/16 23:31 Lab Results: I have reviewed the past 24 hour labs Quality Measures - VTE Deep Vein Thrombosis/Pulmonary Embolism Present on Admission: No Specialty Discharge - Follow Up or Referrals Follow up with: Zulma Olsen MD [Physician] - 11/06/16 10:15 am
[2016-10-29] MEDS: LEVOFLOXACIN INJ 500 MG in PREMIX 1 EACH IV SCH (15:11)
[2016-10-29] MEDS: MELATONIN 3 MG TABLET PO PRN (21:26)
[2016-10-30] MEDS: HYDROmorphone 2 MG/1 ML VIAL IV PRN (05:08)
--- NOTE | 2016-10-30 06:30 | Pain Management Progress Note ---
Assessment and Plan (1) Right foot pain Status: Acute Assessment and plan: I don't think a block would help I will replace her morphine with the Dilaudid and had oral Percocet to I will also increase her Neurontin to 304 times per day 10/20 I will add a 25 g an hour Duragesic patch to see if that can give her some sustained pain relief 10/21 agree with mri of right foot , continue current medications 10/22 would start her on physical therapy today to see if we can get her up and tried to start ambulating. If not better by tomorrow I will offer her a lumbar epidural steroid injection 10/23 awaiting neurology consult , will make outpatient appointment with me in pain clinic 10/26 continue current plan of care 10/27 I agree in proceeding with the lumbar puncture and will follow up on the results if needed a lumbar epidural injection can be performed 10/28 recommended been to current medications until discharge 10/30 follow-up with me as an outpatient Current Visit: Yes Pain - Subjective Interval history: The patient is stable at this time and most likely will be discharged to home today I have made her a follow-up appointment with me in pain clinic as an outpatient I'll be happy to follow up with her as an outpatient Exam - Constitutional Vitals: Period Temp Pulse Resp BP Sys/Painting Pulse Ox Last 24 Hr 97.2 F-98.3 F 52-64 16-20 118-135/54-61 92-99 General appearance: normal weight - Head Head exam: Present: normal inspection - Eye Eye exam: Present: EOMI - ENT ENT exam: Present: normal exam Ear exam: Present: intact Mouth exam: Present: normal external inspection - Neck Neck exam: Present: normal inspection - Respiratory Respiratory exam: Present: clear to auscultation bilaterally - GI/Abdominal GI/Abdominal exam: Present: normal bowel sounds - Extremities Exam Extremities exam: Present: normal inspection - Back Exam Back exam: Present: vertebral tenderness - Neurological Exam Neurological exam: Present: alert, oriented X3 - Skin Skin exam: Present: normal color Results - Labs CBC & BMP: 10/26/16 23:31 10/26/16 23:31 Lab Results: I have reviewed the past 24 hour labs Quality Measures - VTE Deep Vein Thrombosis/Pulmonary Embolism Present on Admission: No Specialty Discharge - Follow Up or Referrals Follow up with: Zulma Olsen MD [Physician] - 11/06/16 10:15 am
[2016-10-30] MEDS: OMEGA 3 ACID ETHYL ESTERS 1 GM CAPSULE PO SCH (10:08)
[2016-10-30] MEDS: MAGNESIUM OXIDE 400 MG TABLET PO SCH (10:09)
[2016-10-30] MEDS: ASPIRIN CHEW 81 MG TABLET PO SCH (10:09)
[2016-10-30] MEDS: cloNIDine 0.1 MG TABLET PO SCH (10:09)
[2016-10-30] MEDS: COLCHICINE 0.6 MG TABLET PO SCH (10:09)
[2016-10-30] MEDS: CAPTOPRIL 6.25 MG TABLET PO SCH ×2 (10:10→15:55)
[2016-10-30] MEDS: GABAPENTIN 300 MG CAPSULE PO SCH ×2 (10:10→15:55)
[2016-10-30] MEDS: CARVEDILOL 3.125 MG TABLET PO SCH (10:10)
[2016-10-30] MEDS: SPIRONOLACTONE 25 MG TABLET PO SCH (10:10)
[2016-10-30] MEDS: ENOXAPARIN 40 MG/0.4 ML SYRINGE SUBCUT SCH (10:10)
[2016-10-30] MEDS: SERTRALINE 100 MG TABLET PO SCH (10:10)
[2016-10-30] MEDS: DESITIN 4OZ/NYSTATIN 15 GRAM MIXTURE PASTE TOP SCH (10:11)
[2016-10-30] MEDS: amLODIPine 10 MG TABLET PO SCH (10:11)
[2016-10-30] MEDS: PANTOPRAZOLE 40 MG TABLET PO SCH (10:11)
--- NOTE | 2016-10-30 10:20 | Discharge Summary ---
<Sruthi Hoover - Last Filed: 10/30/16 09:43> Hospital Course - Hospital Course Hospital Course: Ms. Lanier was admitted on 10/08/16 for acute renal failure, back pain, and hyperkalemia. Creatinine was 12.2, GFR 3. On admission, she did have pain to her right foot. She did not have any medical history to her knowledge on admission, however, she did take NSAIDs almost on a daily basis. She was given IVF's at 125 cc/hr, a renal ultrasound and dopplers of lower extremities were negative on admission. CXR showed mild congestion. Foot xray on admission was negative as well. Uric acid was 17.1. After discussing with her daughter on admission, there is a question of etoh abuse. We ordered 2 mg PO TID and 2 mg IV PRN for agitation for ETOH withdrawals. Dr. Jackson saw in Nephrology consultation on 10/09/16 for her renal failure. Her creatinine improved to 9.0 after rehydration. She was started on allopurinol and colcicine for acute gout attack. She was also given IV steroids. She did have hyperkalemia at 6 on admission, was given lactulose on admission. On 10/11, potassium low at 2.8. She was given riders, oral supplementation, and IVF's with potassium for several days in attempt to get her potassium up to normal. She also had hypomagnesemia and was supplemented. She developed acute respiratory distress on 10/13/16 and required lasix, and o2 overnight for fluid overload. She had chest pain as well, we got an EKG that did not reflect a STEMI. She was also given labetalol 10 mg q 4 hrs PRN, serial troponins and sublingual NTG. ECHO obtained and showed "moderate concentric left ventricular hypertrophy with diastolic dysfunction with an EF 50-55%". PPI was initiated as well. CXR showed acute CHF- diastolic. Her CXR showed pneumonia as well and was suspicous for aspiration pneumonia. She was started on clindamycin. Dr. Carpenter was consulted and saw on 10/13/16. Dr. Olsen was consulted for pain management for right foot pain. She was given Morphine, Dilaudid and PO Percocet. Her Neurontin was also increased to 3-4 times per day. Duragesic was added as well. On 10/19, she began to have suicidal ideation, but she related this to her severe pain. She was put on 1:1 suicide watch. MRI right foot was obtained and showed "irregular hypointense T1 signal and hyperintense T2 signal. Given the absence of recent trauma, findings most likely reflect sequela of osteonecrosis ". Ortho was asked to see for right foot pain. 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 Given that there was no collapse of the talus itself, no surgical intervention was required. It was felt that her pain was mostly neuropathic in nature. Dr. Pierce was consulted for right foot drop and right foot pain. Nerve conduction studies were performed on 10/26 and showed " electrophysiological evidence of a 1) diffuse sensorimotor axonal polyneuropathy; 2) acute right common peroneal neuropathy best localized at the knee". MRI L/S spine showed mild DDD. Her urine grew enterobacter cloacae and she was continued on IV levaquin. An LP was done on 10/27 amd CSF fluid studies were negative. Spinal tap was not consistent with GBS. Right foot drop is most likely due to right common peroneal nerve injury. She has much improved since admission. Her labs and vitals are stable. She will be discharged home today with boot for right foot drop and outpatient follow up with Neuro, Pain Management. - Time spent with patient Time with patient DS: Greater than 30 minutes (due to plan, doc and med rec.) Diagnosis - Discharge Diagnosis (1) Acute renal failure Status: Resolved (2) Back pain Status: Chronic (3) Hyperkalemia, diminished renal excretion Status: Resolved (4) Hypomagnesemia Status: Resolved (5) Gout attack Status: Acute (6) HTN (hypertension) Status: Chronic (7) Diarrhea Status: Acute (8) Rash and nonspecific skin eruption Status: Acute (9) Acute respiratory distress Status: Acute (10) Gout attack Status: Acute Specialty Discharge - Follow Up or Referrals Follow up with: Zulma Olsen MD [Physician] - 11/06/16 10:15 am Discharge Plan - Discharge Data Disposition: Disch To Home/Self Care - Discharge Medications [place] Cap/Tab [Neurontin Cap/Tab] 300 mg PO TID #90 capsule Colchicine [Colcrys] 0.6 mg PO DAILY #30 tablet Acetaminophen Tab [Tylenol Tab] 325 mg PO Q4H PRN #0 tablet PRN Reason: fever, headache/body aches Aspirin Chew Tab 324 mg PO DAILY tablet Carvedilol [Coreg] 3.125 mg PO BID #60 tablet Docusate Sodium Cap [Colace Cap] 100 mg PO BID PRN #0 capsule PRN Reason: Constipation HYDROcodone/ACETAMIN 7.5-325 [[place] 7.5-325] 1 tablet PO Q4H PRN #20 tablet PRN Reason: Pain Mild To Moderate (1-7) Hydrocortisone 0.5% Cream 1 applic TOP BID PRN #1 cream PRN Reason: Rash Spironolactone [Aldactone] 6.25 mg PO BID #60 tablet amLODIPine [Norvasc] 10 mg PO DAILY #30 tablet cloNIDine TAB [Catapres Tab] 0.1 mg PO BID #60 tablet Allopurinol [Zyloprim] 200 mg PO BID #60 tablet Continue [place]-3 Fatty Acids [Fish Oil] 1,000 mg PO BID Omeprazole [Prilosec] 20 mg PO DAILY Sertraline [Zoloft] 100 mg PO DAILY Discontinued Lisinopril/Hctz 20-12.5 [Prinzide 20-12.5] 1 tablet PO DAILY - Follow Up or Referral Follow Up: Zulma Olsen MD [Physician] - 11/06/16 10:15 am - Forms/Instructions Exam - Constitutional Vitals: Period Temp Pulse Resp BP Sys/Painting Pulse Ox Last 24 Hr 97.2 F-98.3 F 54-64 16-18 107-135/52-61 97-99 Discharge Results Procedures and tests throughout hospitalization: Pending Orders 10/18/16 06:20 Occult Blood, Stool Stat 10/27/16 09:35 Fungal Culture w/ Prep Routine Viral Culture, Non-Respiratory Routine DS: Provider Date of admission: 10/08/16 18:20 Primary care physician: . No PCP Attending physician on admission: Dick Olsen MD Consults: 10/08/16 19:19 Consult to Case Mgmt/Social Srvs [CONS] Routine Reason for Case Mgmt/Social Srvs: Other 10/08/16 19:53 Consult to Pharmacy [CONS] Routine Reason for Pharmacy Consult: Adjust Meds Renal Funct 10/08/16 21:08 Consult to Dietitian [CONS] Routine Reason for Dietitian: Other Consult Comment: weight loss 10/08/16 21:11 Consult to Physical Therapy [CONS] Routine Reason for Physical Therapy: Evaluate and Treat 10/10/16 14:08 Consult to Case Mgmt/Social Srvs [CONS] Routine Reason for Case Mgmt/Social Srvs: Swingbed/SNF/Fpc Consult to Physical Therapy [CONS] Routine Reason for Physical Therapy: Evaluate and Treat 10/13/16 15:47 Consult to Physician [CONS] Routine Comment: cp, elevated troponin Consulting Provider: Fer Palmer Person Notified: Lata Date Notified: 10/13/16 Time Notified: 15:52 10/19/16 10:51 Consult to Physician [CONS] Routine Comment: consider nerve block related to severe right lower Consulting Provider: Zulma Olsen Person Notified: Lata Date Notified: 10/19/16 Time Notified: 14:45 Consult Notification Comment: 10/19/16 16:49 Consult to Case Mgmt/Social Srvs [CONS] Routine Reason for Case Mgmt/Social Srvs: Psychiatric Management Consult Comment: sucidal ideations 10/21/16 14:22 Consult to Physician [CONS] Routine Comment: Consulting Provider: Lui Stallings Person Notified: Renae Date Notified: 10/21/16 Time Notified: 14:38 10/22/16 06:18 Consult to Physical Therapy [CONS] Routine Reason for Physical Therapy: Evaluate and Treat Start Therapy: Today 10/22/16 14:50 Consult to Physician [CONS] Routine Comment: Consulting Provider: Jeff Pierce Consult to Specialist Group: Neurology Person Notified: Halie Date Notified: 10/22/16 Time Notified: 15:43 10/30/16 09:23 Consult to Case Mgmt/Social Srvs [CONS] Routine Reason for Case Mgmt/Social Srvs: Other Consult Comment: outpatient physical/occupational therapy Discharging clinician: Sruthi Hoover NP Expected date of discharge: 10/30/16 <Antonella Vides - Last Filed: 10/30/16 15:37> Hospital Course - Time spent with patient Time with patient DS: Greater than 30 minutes Diagnosis - Discharge Diagnosis (1) Right foot pain Status: Acute (2) Suicidal ideation Status: Acute (3) HTN (hypertension) Status: Chronic (4) Back pain Status: Chronic (5) Heart failure, diastolic, acute on chronic Status: Acute (6) Depression Status: Acute (7) UTI (urinary tract infection) Status: Acute Discharge Plan - Discharge Data Condition at Discharge: Stable Discharge Diet: heart healthy Activity: resume usual activities as tolerated - Forms/Instructions Additional Discharge Instructions: follow up with Neurology as outpatient Exam - Constitutional General appearance: no acute distress - Head Head exam: Present: normal inspection - Respiratory Respiratory exam: Present: clear to auscultation bilaterally - Cardiovascular Cardiovascular exam: Present: regular rate and rhythm - GI/Abdominal GI/Abdominal exam: Present: normal bowel sounds - Extremities Exam Extremities exam: Present: normal inspection
[2016-10-30] MEDS: ACETAMINOPHEN 325 MG TABLET PO PRN (11:14)
[2016-10-30] MEDS: LEVOFLOXACIN INJ 500 MG in PREMIX 1 EACH IV SCH (15:55)
[2016-10-30 16:01] VITALS: BP 126/62
== END 2016-10-30 17:21 | disposition home or self-care (01) | DRG 682 ==
LOC: EDBD → EDUNIT# → N.ED 15:54 → SUATTDRO 18:20 → N.EDINP 18:20 → N.5E 19:37
PROVIDERS: ADMIT Internal Medicine; ATTEND Internal Medicine